=== PATIENT | female | born 1975 | race Caucasian/White ===

== ENCOUNTER 2018-02-22 09:02 | Emergency (ER) | payer BC, SELFPAY ==
[2018-02-22 09:03] VITALS: BP 155/91; PULSE 94; RESP 18; TEMP 37.4; O2SAT 98; BMI 37.0
--- NOTE | 2018-02-22 09:15 | ED.VISSUMM ---
- ER Visit Summary Date of Service: 02/22/18 Chief Complaint: Left calf pain, right anterior tibial pain History of Present Illness: The patient is a 42 F who presents with the above symptoms here she fell on her wooden deck steps 3 weeks ago. She has had a wound on the right anterior tibial area. Is now draining with some yellow fluid. She still has diffuse tenderness from the knee down to the ankle. She had ecchymosis which has improved. She has pain in the left calf area. She noticed a knot in that area this morning. She went to an urgent care and they sent her here for ultrasound. She has been using topical antibiotic cream on the wound on the right leg. Physical Examination: Right leg exam reveals diffuse tenderness in the tibial area. She has a wound on the right anterior tibial area. There is drainage noted. The left calf is tender to palpation. There are no palpable cords. No erythema. She has full range of motion of each extremity. Pulses in her feet are 2+ and equal Test Results: Ultrasound of the left leg and x-ray of the right tib-fib is negative Emergency Department Course and Treatment: Imaging studies are all negative. The patient does have this wound that looks like it slightly infected. Patient will be given Keflex for this. She will follow-up with her primary care physician and use NSAIDs for pain Treatment Plan: [] Disposition: Discharge Impression: Wound infection, left calf pain This note was generated with [employer] dictation software. It may contain incorrect words, spelling, and punctuation that were not noted in review of the chart prior to signing ED Disposition - Plan for ED Patient: Chief Complaint: Lower Extremity Injury Referrals: Laron Hadley MD [Primary Care Provider] -
--- NOTE | 2018-02-22 09:59 | ED.DEP ---
ED Disposition - Plan for ED Patient: Disposition: Home or Assisted Living Chief Complaint: Lower Extremity Injury Instructions: ED Wound Care Prescriptions: Cephalexin [Keflex] 500 mg PO Q6 #28 cap Referrals: Laron Hadley MD [Primary Care Provider] -
[2018-02-22 10:05] VITALS: BP 135/66; PULSE 58; RESP 16; O2SAT 100
== END 2018-02-22 10:06 | disposition home or self-care (01) ==
PROVIDERS: Emergency Provider Emergency Medicine; Family Provider Family Medicine; PCP Family Medicine
DX: M79.662 Pain in left lower leg (principal); S81.801A Unspecified open wound, right lower leg, initial encounter; L08.9 Local infection of the skin and subcutaneous tissue, unspecified; W10.9XXA Fall (on) (from) unspecified stairs and steps, initial encounter; Y93.9 Activity, unspecified; Y92.9 Unspecified place or not applicable; Y99.9 Unspecified external cause status; K21.9 Gastro-esophageal reflux disease without esophagitis; Z72.0 Tobacco use; Z79.899 Other long term (current) drug therapy
CPT/HCPCS: 73590; 93971; 99282

== ENCOUNTER 2018-05-29 19:33 | Inpatient (IN) | payer BC, SELFPAY ==
[2018-05-29 19:35] VITALS: BP 122/74; PULSE 143; RESP 20; TEMP 36.4; O2SAT 95; BMI 36.4
[2018-05-29 19:46] VITALS: O2SAT 95
--- NOTE | 2018-05-29 19:53 | CT_ITS ---
STUDY: CTA CHEST REASON FOR EXAM: Female, 42 years old. Back pain and cough. RADIATION DOSAGE (If Supplied By Facility): CTDIvol = ( 13.18 ) mGy, DLP = ( 596.48 ) mGycm TECHNIQUE: The examination was performed with the intravenous administration of 100 ml of Isovue 300 contrast material. Post-processing of the angiographic images was performed, with multiplanar reformation and 3D reconstruction. Individualized dose optimization techniques were used for this CT. COMPARISON: Portable chest radiograph of May 29, 2018 FINDINGS: Normal enhancement of the main pulmonary artery and right and left pulmonary arteries. Normal enhancement of the bilateral peripheral pulmonary arteries. There is no demonstrated pulmonary embolism. Normal thoracic aorta and visualized great vessels. There is no demonstrated aortic dissection. Normal heart and pericardium. Shotty subcentimeter lymph nodes of the middle mediastinum and aortopulmonary window. Shotty left hilar lymph nodes. Consolidation in the posterior left lower lobe. 11 mm noncalcified nodule of the lingula which is pleural-based and has an air filled center, possibly a calcified nodule. Mild posterior atelectatic change and small nodular type infiltrates in the lateral right lower lobe. 4 mm noncalcified noncavitating nodule of the right lower lobe, image 88 series 2. Negative for pleural effusion. Normal chest wall structures. There are degenerative changes of thoracic spine. Normal visualized upper abdomen. CT/CTA Chest W/WO Contrast IMPRESSION: Negative for pulmonary embolus. Normal thoracic aorta. Negative for coronary calcifications. Shotty lymph nodes of the middle mediastinum, aortopulmonary window and left hilum. Broad area of consolidation in the posterior left lower lobe with minor volume loss. Negative for pleural effusion. 11 mm noncalcified nodule of the lingula with a central lucency suspicious for cavitation. 4 mm noncalcified noncavitating nodule of the right lower lobe. Small areas of atelectasis and/or small confluent infiltrate in the right lower lobe. Generalized atelectatic posterior changes of the right lung. Electronically Signed: Josie Conte MD at 21:44 EST , Service support ,
--- NOTE | 2018-05-29 19:53 | EKG12_ITS ---
Test Reason : CP Blood Pressure : / mmHG Vent. Rate : 127 BPM Atrial Rate : 127 BPM P-R Int : 126 ms QRS Dur : 082 ms QT Int : 300 ms P-R-T Axes : 040 041 008 degrees QTc Int : 436 ms Sinus tachycardia Otherwise normal ECG Confirmed by REBECCA SNOWDEN, ELYSSA ([id number]), expeller operator GOLD WOOTEN ([id number]) on 05/31/2018 9:53:52 AM Referred By: DR GREGORIO Confirmed By:ELYSSA FERNANDEZ MD
--- NOTE | 2018-05-29 19:53 | RAD_ITS ---
STUDY: X-RAY CHEST REASON FOR EXAM: Female, 42 years old. Chest pain TECHNIQUE: Single AP portable view of the chest. COMPARISON: None. FINDINGS: Retrocardiac left lower lobe consolidation. Negative for substantial pleural effusion. Normal size heart. Normal mediastinum and chicho. Normal visualized pulmonary arteries. Normal visualized aortic arch and descending thoracic aorta. Normal visualized thoracic spine. Normal visualized ribs, clavicles, and shoulders. There is no demonstrated abnormality of the visualized soft tissue structures of the upper abdomen. RAD/Chest 1 View (Portable) IMPRESSION: Left lower lobe retrocardiac consolidation, potential pneumonic process. Electronically Signed: Josie Conte MD at 21:13 EST , Service support ,
--- NOTE | 2018-05-29 19:57 | ED.DCSUM_ITS ---
- ER Visit Summary Date of Service: 05/29/18 Chief Complaint: Chest pain and shortness of breath History of Present Illness: The patient is a 42 F who presents for chest pain and shortness of breath with onset last night. Patient has had a cough for the last few days, but last night had sudden onset of left-sided chest pain, shortness of breath, worsening cough, back pain, chills and sweats. Patient is a smoker. She denies any history of DVT or PE. No recent travel or surgery. No history of exogenous hormone use. Patient has no other medical history. Patient has no other symptoms at this time, including no acute leg pain or swelling. She did fall a few weeks ago and has been having leg pain ever since. She was evaluated at that time for a DVT due to the leg pain. Physical Examination: Vital signs: afebrile, normotensive, tachycardic, no hypoxia on room air General: well nourished, well developed, in mild distress Skin: warm, moist, no rash, no pallor HEENT: normocephalic and atraumatic; PERRL, EOMI, moist mucous membranes Cardiovascular: Tachycardic rate and rhythm without murmurs, no peripheral edema, 2+ pulses all distal extremities Respiratory: Tachypnea with mild increased work of breathing, lungs show rhonchi in the left lower field and a expiratory squeak, no wheezing Abdominal: Abdomen is soft, nontender with normoactive bowel sounds, no guarding or rebound, no masses MSK: Moves all extremities, no deformities, normal strength, no calf swelling, tenderness, palpable cords Neuro: Awake and alert, oriented ?4. No facial droop, sensation and motor function intact and symmetric Test Results: Abnormal Lab Results 05/29/18 05/29/18 05/29/18 20:00 20:00 20:00 WBC 12.0 H RBC 4.81 Hgb 13.5 Hct 41.3 MCV 85.9 MCH 28.1 MCHC 32.7 RDW 14.0 RDW Differential 43.1 Plt Count 204 MPV 11.1 Immature Gran % (Auto) 1.000 H Neut % (Auto) 91.3 H Lymph % (Auto) 3.8 L [place] % (Auto) 3.8 Eos % (Auto) 0.0 Baso % (Auto) 0.1 Absolute Neuts (auto) 11.0 H Absolute Lymphs (auto) 0.46 L Total Counted Not Reportable Differential Comment SCANNED PT 14.0 INR 1.1 APTT 35.5 Sodium 133 L Potassium 3.6 Chloride 101 Carbon Dioxide 24.0 Anion Gap 8 BUN 6 L Creatinine 0.90 Estim Creat Clear Calc 64.40 Est GFR (MDRD) Af Amer 88 Est GFR (MDRD) Non-Af 73 BUN/Creatinine Ratio 6.7 L Glucose 123 H Lactic Acid Calcium 8.8 Troponin I < 0.015 05/29/18 20:00 WBC RBC Hgb Hct MCV MCH MCHC RDW RDW Differential Plt Count MPV Immature Gran % (Auto) Neut % (Auto) Lymph % (Auto) [place] % (Auto) Eos % (Auto) Baso % (Auto) Absolute Neuts (auto) Absolute Lymphs (auto) Total Counted Differential Comment PT INR APTT Sodium Potassium Chloride Carbon Dioxide Anion Gap BUN Creatinine Estim Creat Clear Calc Est GFR (MDRD) Af Amer Est GFR (MDRD) Non-Af BUN/Creatinine Ratio Glucose Lactic Acid 1.4 Calcium Troponin I Clinical Impression(s) from Imaging Studies Chest CTA 05/29/18 19:53 IMPRESSION: Negative for pulmonary embolus. Normal thoracic aorta. Negative for coronary calcifications. Shotty lymph nodes of the middle mediastinum, aortopulmonary window and left hilum. Broad area of consolidation in the posterior left lower lobe with minor volume loss. Negative for pleural effusion. 11 mm noncalcified nodule of the lingula with a central lucency suspicious for cavitation. 4 mm noncalcified noncavitating nodule of the right lower lobe. Small areas of atelectasis and/or small confluent infiltrate in the right lower lobe. Generalized atelectatic posterior changes of the right lung. Electronically Signed: Josie Conte MD at 21:44 EST , Service support , Chest X-Ray 05/29/18 19:53 IMPRESSION: Left lower lobe retrocardiac consolidation, potential pneumonic process. Electronically Signed: Josie Conte MD at 21:13 EST , Service support , Medications Given Discontinued Medications Sodium Chloride () 1,000 mls @ 1,000 mls/hr IV .Q1H ONE Stop: 05/29/18 20:52 Last Admin: 05/29/18 20:13 Dose: 1,000 mls/hr Ampicillin Sodium/Sulbactam (Sodium 3 gm/ Sodium Chloride) 112 mls @ 150 mls/hr IV X1 ONE Stop: 05/29/18 22:37 Last Admin: 05/29/18 22:41 Dose: 150 mls/hr Vancomycin HCl 1,250 mg/ (Dextrose) 275 mls @ 250 mls/hr IV X1 ONE Stop: 05/29/18 22:59 Last Admin: 05/29/18 23:53 Dose: 250 mls/hr Ibuprofen (Motrin) 600 mg PO X1 ONE Stop: 05/29/18 22:47 Last Admin: 05/29/18 23:00 Dose: 600 mg Morphine Sulfate () 4 mg IV X1 ONE Stop: 05/29/18 19:54 Last Admin: 05/29/18 20:13 Dose: 4 mg Ondansetron HCl (Zofran) 4 mg IV X1 ONE Stop: 05/29/18 19:54 Last Admin: 05/29/18 20:13 Dose: 4 mg Emergency Department Course and Treatment: Patient presents with pleuritic chest pain, back pain, tachycardia and shortness of breath, is a smoker, and has an EKG that shows an S1Q3T3 pattern. Patient's presentation is concerning for possible pulmonary embolism or pulmonary infection. Patient was given IV fluids for hydration. Chest x-ray was performed that was consistent with a left lower lobe infiltrate. Patient had leukocytosis of 12. Lactate within normal limits at 1.4. CTA was performed and showed no pulmonary embolism but did show a large left lower lobe pneumonia, a lingular cavitary lesion, and concern for a developing right pneumonia. Patient was started on antibiotic coverage for pneumonia, including coverage for pathogen to cause cavitary lesions. Blood cultures obtained. Patient was reevaluated and still was tachycardic, tachypneic and still symptomatic, although somewhat improved in her subjective symptoms. Because of her multilobar pneumonia with cavitary lesion and sepsis, she will benefit from inpatient IV antibiotics and further management. Treatment Plan: [] Disposition: [] Impression: Multilobar pneumonia, cavitary pneumonia, sepsis This note was generated with [employer] dictation software. It may contain incorrect words, spelling, and punctuation that were not noted in review of the chart prior to signing ED Disposition - Plan for ED Patient: Disposition: Acute Care Hospital [facility] Chief Complaint: Cough
[2018-05-29] MEDS: Ondansetron 4 MG/2 ML Vial IV (20:13)
[2018-05-29] MEDS: Morphine 4 MG/ML Syringe IV (20:13)
[2018-05-29] MEDS: 0.9% Normal Saline 1,000 ML 1000 ML IV (20:13)
[2018-05-29 20:22] LABS: Absolute Lymphocyte Count 0.46 X10^3/ul (0.83-4.51); Basophil# 0.01 X10^3/uL; Basophil% 0.1 % (0-1); Differential Indicated SCAN CRITERIA MET; Hematocrit 41.3 % (37-47); Hemoglobin 13.5 g/dl (12.0-15.0); Lymphocyte # 0.46 X10^3/ul (4.0); Lymphocyte % 3.8 % (19-41); Mean Corp Hgb Conc 32.7 g/gl (32-36); Mean Corpuscular Hgb 28.1 pg (27.0-32.0); Mean Corpuscular Volume 85.9 fL (81-99); Mean Platelet Vol. 11.1 fl (6.2-12.0); Monocyte# 0.45 X10^3/uL; Monocyte% 3.8 % (0-10); Neutrophil # 10.96 X10^3/uL (2.7-7.7); Neutrophil % 91.3 % (47-70); POSITIVE COUNT NO; POSITIVE DIFFERENTIAL YES; POSITIVE MORPHOLOGY NO; Platelet Count 204 K/mm3 (150-450); RBC Distribution Width SD 43.1 fl (35.1-43.9); Red Blood Count 4.81 M/mm3 (4.2-5.4)
[2018-05-29 20:38] LABS: International Normalized Ratio 1.1
[2018-05-29 20:39] LABS: Anion Gap 8 (5-15); BUN 6 mg/dL (7-18); BUN/Creat Ratio 6.7 RATIO (10-20); Calcium,Total 8.8 mg/dL (8.5-10.1); Chloride 101 mmol/L (98-107); EST Glomerular Filtration Rate 73 mL/min (>60); Est Glom Filt Rate - Afr Amer 88 mL/min (>60); Glucose 123 mg/dL (74-106); Partial Thromboplast Time 35.5 Seconds (24.1-36.2); Potassium 3.6 mmol/L (3.5-5.1); Sodium Level 133 mmol/L (136-145)
[2018-05-29 20:44] LABS: Differential Comment SCANNED
[2018-05-29 20:47] LABS: Lactic Acid 1.4 mmol/L (0.4-2.0)
[2018-05-29 21:01] VITALS: BP 101/76; PULSE 115; RESP 30; O2SAT 95; O2SAT 99
--- NOTE | 2018-05-29 21:12 | ED.RN ---
PATIENT GOT UP TO THE RESTROOM. SHE BECAME VERY DIZZY AND SHAKY IN HER HANDS. HER MOUTH WAS PALE AND LIPS KIND OF BLUISH. I GOT HER BACK TO BED AND HOOKED HER UP TO THE MONITOR. HER HEART RATE WAS IN THE 150'S WHEN SHE WAS FIRST INTO BED AND HER SPO2 WAS AT 99% ON 2L. BP WAS 134/79. DR. MOREIRA WAS MADE AWARE AND SHE SAID NOT TO GET HER UP ANYMORE. PATIENT IS CURRENTLY FEELING BETTER AND NOT SHAKY ANYMORE.
--- NOTE | 2018-05-29 22:46 | PCM.HP.STD ---
Problem List (1) Cavitary pneumonia Status: Acute (2) Sepsis due to pneumonia Status: Acute History of Present Illness Date of Admission: 05/29/18 Chief Complaint: COUGH The patient is a 42 year old F with a significant history of tobacco abuse who presented because of progressively worsening cough. Her cough is productive for sputum but she is unable to tell the color as she swallows the sputum all the time. Patient reports that she has developed pain that span across her entire chest and goes to her back. She attributes this pain to coughing. She rated her pain as 4 at rest; and a 6-7 with coughing. Associated with her symptoms is shortness of breath at rest. Further she has had chills and night sweats. She had some transient episode of nausea. At emergency department patient was found to have elevated white count; tachypnea and tachycardia. EKG showed sinus tachycardia. Because of concern for pulmonary embolism, emergency department doctor did CTPA. CTPA showed no pulmonary embolism. However it showed lymph adenopathy and area of cavitation. Past Medical History Medical History: Medical History (Last Reviewed 05/30/18 @ 07:44 by Micheal Wang MD) GERD (gastroesophageal reflux disease) K21.9 Allergies Sulfa (Sulfonamide Antibiotics) Adverse Reaction (Verified 05/29/18 19:34) Diarrhea Home Medications: Ambulatory Orders Medication Instructions Recorded Omeprazole [Prilosec] 20 mg PO DAILY 04/07/15 Ibuprofen [Motrin] 600 mg PO Q6H PRN 05/29/18 Surgical History: - - 2 . Lives: Spouse/ Significant Other Smoking Status: Current every day smoker Tobacco Use: Cigarettes Alcohol: Heavy - *Family History Maternal History Items: Diabetes Paternal History Items: Hypertension Review of Systems Constitutional: Reports: Anorexia, Chills, Night Sweats. Denies: Fever, Weight Change HEENT: Denies: Head Aches, Sinus Congestion, Sinus Drainage Cardiovascular: Reports: Chest Pain. Denies: Palpitations Respiratory: Reports: Cough, Shortness of breath at rest, Sputum production Gastrointestinal: Reports: Nausea. Denies: Abdominal Pain, Vomiting Genitourinary: Denies: Dysuria Musculoskeletal: Denies: Joint Pain, Joint Tenderness Skin: Denies: Rash, Wounds Neurological: Denies: Numbness, Tingling, Focal weakness Psychiatric: Denies: Anxiety, Depression, Homicidal Ideations, Suicidal Ideations Hematologic/ Lymphatic: Denies: Easy Bruising, Easy Bleeding VTE Information - Inpt Only VTE Present on Admission: No VTE Mechan Device Prophylaxis: None VTE Pharm Prophylaxis ordered?: Yes Patient Problems: Active and Suspected Problems (Last Updated 05/29/18 @ 23:35 by Micheal Wang MD) Cavitary pneumonia (Acute) Sepsis due to pneumonia (Acute) - Physical Exam General: Alert, Oriented x3, Cooperative HEENT: Atraumatic, PERRLA, EOMI, Normocephalic Neck: Supple, No JVD, Negative Carotid Bruits Lungs: Clear to auscultation, Normal air movement, Tachypneic Cardiovascular: No murmurs, Tachycardic Abdomen: Bowel Sounds Present, Soft, Non Tender Extremities: No edema, Capillary Refill Less than 3 Seconds Skin: No rashes, No breakdown Musculoskeletal: No Tenderness to Palpation of Joints or Extremities Neurological: Neuro grossly intact Psych/Mental Status: Normal Affect, Appropriate Vital Signs Temp Pulse Resp BP Pulse Ox 97.5 F L 115 H 30 H 101/76 99 05/29/18 19:35 05/29/18 21:01 05/29/18 21:01 05/29/18 21:01 05/29/18 21:01 Oxygen Flow Rate (L/min) 2 Oxygen Delivery Method Nasal Cannula Weight: 90.4 kg Body Mass Index (BMI) 36.4 Laboratory Tests Past 24 Hrs 05/29/18 05/29/18 05/29/18 20:00 20:00 20:00 WBC 12.0 H RBC 4.81 Hgb 13.5 Hct 41.3 MCV 85.9 MCH 28.1 MCHC 32.7 RDW 14.0 RDW Differential 43.1 Plt Count 204 MPV 11.1 Immature Gran % (Auto) 1.000 H Neut % (Auto) 91.3 H Lymph % (Auto) 3.8 L [place] % (Auto) 3.8 Eos % (Auto) 0.0 Baso % (Auto) 0.1 Absolute Neuts (auto) 11.0 H Absolute Lymphs (auto) 0.46 L Total Counted Not Reportable Differential Comment SCANNED PT 14.0 INR 1.1 APTT 35.5 Sodium 133 L Potassium 3.6 Chloride 101 Carbon Dioxide 24.0 Anion Gap 8 BUN 6 L Creatinine 0.90 Estim Creat Clear Calc 64.40 Est GFR (MDRD) Af Amer 88 Est GFR (MDRD) Non-Af 73 BUN/Creatinine Ratio 6.7 L Glucose 123 H Lactic Acid Calcium 8.8 Troponin I < 0.015 05/29/18 20:00 WBC RBC Hgb Hct MCV MCH MCHC RDW RDW Differential Plt Count MPV Immature Gran % (Auto) Neut % (Auto) Lymph % (Auto) [place] % (Auto) Eos % (Auto) Baso % (Auto) Absolute Neuts (auto) Absolute Lymphs (auto) Total Counted Differential Comment PT INR APTT Sodium Potassium Chloride Carbon Dioxide Anion Gap BUN Creatinine Estim Creat Clear Calc Est GFR (MDRD) Af Amer Est GFR (MDRD) Non-Af BUN/Creatinine Ratio Glucose Lactic Acid 1.4 Calcium Troponin I Assessment/Plan All Active Problems (Last Updated 05/29/18 @ 23:35 by Micheal Wang MD) Cavitary pneumonia (Acute) Sepsis due to pneumonia (Acute) The patient is a 42 year old F with a significant history of tobacco abuse who presented because of progressively worsening cough and shortness of breath; and found to have radiographic evidence of cavitary lesions and lymph adenopathy and meets criteria for SIRS with likely source of infection as pneumonia. Severe Sepsis due to cavitary pneumonia. Patient meets SIRS criteria with tachycardia of 143 and elevated white count Severe sepsis since patient was found to have hemodynamic compromise with SBP < 90 bust responded to fluids. Patient received vancomycin and Unasyn at emergency department. We will continue vancomycin and Unasyn. Lactic acid: 1.4 Highest RR 30 Oxygen saturation: unremarkable Blood culture ?2 is pending Respiratory Gram stain and culture ordered IV hydration with Normal saline. DuoNeb scheduled. Albuterol as needed Legionella antigen screen and Strep antigen ordered Prednisone x 1 due to severity of her condition. Please evaluate for further needs of steroids. Tylenol for fever and pain. Morphine and oxycodone for pain. Bowel protocol with oxycodone. Alcohol dependence Patient reported that she drinks 2 shots of vodka a day. Will place patient on CIWA protocol with Ativan, thiamine, folic acid and multivitamins. Counseled Tobacco abuse Patient reported she is cutting down on tobacco use. She thinks she will not smoke again. Counseled Patient declined nicotine patch. GERD Omeprazole continued. DVT Prophylaxis Lovenox Code Visit Inpatient E&M: [id number] Init Hosp L3
[2018-05-29] MEDS: Ibuprofen 600 MG Tablet PO (23:00)
[2018-05-29 23:02] VITALS: BP 109/78; PULSE 125; RESP 12; TEMP 36.7; O2SAT 98
[2018-05-29 23:23] VITALS: BMI 36.7
[2018-05-29 23:30] VITALS: BP 114/61; PULSE 114; RESP 22; TEMP 37.5; O2SAT 99
[2018-05-30] VITALS (19 sets, daily range): BP systolic 88–114; BP diastolic 53–75; PULSE 62–108; RESP 18–24; TEMP 36.9–39.2; O2SAT 94–99
[2018-05-30] MEDS: 0.9% Normal Saline 1,000 ML 100 ML IV (00:04)
--- NOTE | 2018-05-30 00:15 | PCM.RX.CS ---
<Ari Cunha W - Last Filed: 05/30/18 00:15> Consult Pharmacy has been consulted to manage selected antiobiotic: Vancomycin Type of Consult: New start Suspected Infection: Pneumonia Prior Doses of Antibiotics Received/Current Regimen: Medications Vancomycin HCl (Vancomycin) 1,000 mg in 200 mls @ 200 mls/hr IV Q12H ONEIL Discontinued Medications Vancomycin HCl 1,250 mg/ (Dextrose) 275 mls @ 250 mls/hr IV X1 ONE Stop: 05/29/18 22:59 Last Admin: 05/29/18 23:53 Dose: 250 mls/hr Labs: Sodium 133 mmol/L (136-145) L 05/29/18 20:00 Potassium 3.6 mmol/L (3.5-5.1) 05/29/18 20:00 Chloride 101 mmol/L (98-107) 05/29/18 20:00 Carbon Dioxide 24.0 mmol/L (21.0-32.0) 05/29/18 20:00 Anion Gap 8 (5-15) 05/29/18 20:00 BUN 6 mg/dL (7-18) L 05/29/18 20:00 Creatinine 0.90 mg/dL (0.55-1.02) 05/29/18 20:00 Est GFR (MDRD) Af Amer 88 mL/min (>60) 05/29/18 20:00 Est GFR (MDRD) Non-Af 73 mL/min (>60) 05/29/18 20:00 BUN/Creatinine Ratio 6.7 RATIO (10-20) L 05/29/18 20:00 Glucose 123 mg/dL (74-106) H 05/29/18 20:00 Weight used for dosin.5 kg Estimated Creatinine Clearance: 64 Goal Trough: 15-20 mcg/mL Pharmacy Plan for Drug Dosing: Pharmacy Service will continue to monitor and adjust dosing as required. Follow-Up Labs: Trough Vancomycin Labs to be done on [date and time ordered]: 05-31-18 @1130 <Nettie Miller - Last Filed: 05/30/18 07:30> Consult Labs: Sodium 143 mmol/L (136-145) 05/30/18 05:33 Potassium 3.7 mmol/L (3.5-5.1) 05/30/18 05:33 Chloride 114 mmol/L (98-107) H 05/30/18 05:33 Carbon Dioxide 21.0 mmol/L (21.0-32.0) 05/30/18 05:33 Anion Gap 8 (5-15) 05/30/18 05:33 BUN 5 mg/dL (7-18) L 05/30/18 05:33 Creatinine 0.65 mg/dL (0.55-1.02) 05/30/18 05:33 Est GFR (MDRD) Af Amer 127 mL/min (>60) 05/30/18 05:33 Est GFR (MDRD) Non-Af 105 mL/min (>60) 05/30/18 05:33 BUN/Creatinine Ratio 7.6 RATIO (10-20) L 05/30/18 05:33 Glucose 122 mg/dL (74-106) H 05/30/18 05:33 Microbiology: Microbiology 05/30/18 00:15 Urine, Clean Catch Streptococcus pneumoniae Antigen (M - Final 05/30/18 00:15 Urine, Clean Catch Legionella Antigen - Final Pharmacy Plan for Drug Dosing: Upon daily assessment, pt has had significant improvement in renal function, qualifies for 1500mg iv q12hrs at present time. Will change old vancomycin dosing to new dose, trough will stay the same, as the patient has not gotten any doses of scheduled vancomycin yet. PLAN/RECOMMENDATIONS 1. Change vancomycin to 1500mg IV Q12hrs to start 05/30/18 @1200 2. Trough scheduled 05/31/18 @1130 3. Pharmacy Service will continue to monitor and adjust dosing as required.
[2018-05-30] MEDS: predniSONE 20 MG Tablet 40 MG PO (00:33)
[2018-05-30] MEDS: 0.9% Normal Saline 1,000 ML 999 ML IV ×3 (02:07→05:06)
--- NOTE | 2018-05-30 05:58 | PCM.PN.BLA ---
Progress Note Severe sepsis follow-up note Nurse reported that patient systolic blood pressure was lower than 90 At emergency department patient was given 1000 L of normal saline and was started on maintenance fluids. Patient rebolus with 30 mL's per kilogram normal saline and maintenance fluid continued. On repeat examination patient reports that she has shortness of breath only when she coughs up. S1-S2 present. No M/G/R Lungs clear to auscultate Extremities pulses 2 out of 4; capillary refill less than 3 seconds. Blood cultures are pending Lactate was unremarkable Continue broad-spectrum antibiotics of vancomycin and Unasyn. Nurse later reported patient blood pressure is lower in the right arm and is increased by 20 points in the left arm. Repeat systolic blood pressure charted is more than 100.
[2018-05-30 06:16] LABS: Absolute Lymphocyte Count 0.37 X10^3/ul (0.83-4.51); Absolute Neutrophil Count 10.1 X10^3/uL (2.0-7.7); Hematocrit 34.4 % (37-47); Hemoglobin 11.2 g/dl (12.0-15.0); Lymphocyte # 0.37 X10^3/ul (4.0); Lymphocyte % 3.4 % (19-41); Mean Corp Hgb Conc 32.6 g/gl (32-36); Mean Corpuscular Hgb 28.6 pg (27.0-32.0); Mean Corpuscular Volume 87.8 fL (81-99); Mean Platelet Vol. 11.3 fl (6.2-12.0); Monocyte# 0.37 X10^3/uL; Monocyte% 3.4 % (0-10); Neutrophil # 10.11 X10^3/uL (2.7-7.7); Neutrophil % 92.8 % (47-70); Platelet Count 159 K/mm3 (150-450); RBC Distribution Width SD 43.9 fl (35.1-43.9); Red Blood Count 3.92 M/mm3 (4.2-5.4); White Blood Count 10.9 K/mm3 (4.4-11.0)
[2018-05-30 06:19] LABS: Differential Indicated SCAN CRITERIA MET; POSITIVE COUNT NO; POSITIVE DIFFERENTIAL YES; POSITIVE MORPHOLOGY NO
[2018-05-30 06:45] LABS: Anion Gap 8 (5-15); BUN 5 mg/dL (7-18); BUN/Creat Ratio 7.6 RATIO (10-20); Calcium,Total 7.2 mg/dL (8.5-10.1); Chloride 114 mmol/L (98-107); Creatinine, Serum 0.65 mg/dL (0.55-1.02); EST Glomerular Filtration Rate 105 mL/min (>60); Est Glom Filt Rate - Afr Amer 127 mL/min (>60); Estimated Creatinine Clearance 85.08 ml/min; Glucose 122 mg/dL (74-106); Potassium 3.7 mmol/L (3.5-5.1); Sodium Level 143 mmol/L (136-145)
[2018-05-30] MEDS: Ipratropium/Albuterol Sulfate 3 ML AMPUL.NEB INHALATION (07:14)
[2018-05-30] MEDS: Acetaminophen 325 MG Tablet 650 MG PO ×2 (08:03→19:12)
--- NOTE | 2018-05-30 08:06 | PCM.PROGNOTE ---
Patient Problems: Active and Suspected Problems (Last Reviewed 05/30/18 @ 07:44 by Micheal Wang MD) Cavitary pneumonia (Acute) Sepsis due to pneumonia (Acute) Subjective: Chief complaint: Follow-up after admission for community-acquired pneumonia and sepsis. Patient seen and examined. No acute events overnight. She still complaining of dry cough with no sputum production, no improvement. Denied abdominal pain, nausea or vomiting. This morning, her vital signs are stable. - Physical Exam General: Alert, Oriented x3, Cooperative, No apparent distress HEENT: Atraumatic, PERRLA, EOMI, Normocephalic Oral: Moist Mucosa, No Gingival or Mucosal Lesions/ Ulcerations Neck: Supple, No JVD, Negative Carotid Bruits, Trachea Midline, Thyroid Normal Size and Texture Lungs: Clear to auscultation, No rhonchi, No wheeze, No rales, Diminished Cardiovascular: Regular rate, Regular Rhythm, Normal S1, Normal S2, PMI Normal Abdomen: Bowel Sounds Present, Soft, Non Tender, Non-Distended, No Hepato-splenomegaly Extremities: No clubbing, No cyanosis, No edema Skin: No rashes, No breakdown Lymphatic: No Cervical, Supraclavicular, or Inguinal Adenopathy Neurological: Cranial nerves II-XII grossly intact, Motor Exam 5/5 strength throughout Psych/Mental Status: Normal Affect, Appropriate, Alert and oriented to time, place, person, mood and affect Vital Signs Temp Pulse Resp BP Pulse Ox 98.6 F 94 18 109/71 99 05/30/18 07:50 05/30/18 07:50 05/30/18 07:50 05/30/18 07:51 05/30/18 07:50 Oxygen Flow Rate (L/min) 2 Oxygen Delivery Method Room Air Weight: 199 lb 8.293 oz Body Mass Index (BMI) 36.7 Intake and Output for Last 24 Hours 05/28/18 05/29/18 05/30/18 23:59 23:59 23:59 Intake Total 4259 / 4259 Output Total 1900 / 1900 Balance 2359 / 2359 Microbiology Past 72 Hours 05/30/18 00:15 Streptococcus pneumoniae Antigen (M - Final Urine, Clean Catch 05/30/18 00:15 Legionella Antigen - Final Urine, Clean Catch Laboratory Tests Past 24 Hrs 05/29/18 05/29/18 05/29/18 20:00 20:00 20:00 WBC 12.0 H RBC 4.81 Hgb 13.5 Hct 41.3 MCV 85.9 MCH 28.1 MCHC 32.7 RDW 14.0 RDW Differential 43.1 Plt Count 204 MPV 11.1 Immature Gran % (Auto) 1.000 H Neut % (Auto) 91.3 H Lymph % (Auto) 3.8 L [place] % (Auto) 3.8 Eos % (Auto) 0.0 Baso % (Auto) 0.1 Absolute Neuts (auto) 11.0 H Absolute Lymphs (auto) 0.46 L Total Counted Not Reportable Differential Comment SCANNED PT 14.0 INR 1.1 APTT 35.5 Sodium 133 L Potassium 3.6 Chloride 101 Carbon Dioxide 24.0 Anion Gap 8 BUN 6 L Creatinine 0.90 Estim Creat Clear Calc 64.40 Est GFR (MDRD) Af Amer 88 Est GFR (MDRD) Non-Af 73 BUN/Creatinine Ratio 6.7 L Glucose 123 H Lactic Acid Calcium 8.8 Troponin I < 0.015 05/29/18 05/30/18 05/30/18 20:00 05:33 05:33 WBC 10.9 RBC 3.92 L Hgb 11.2 L Hct 34.4 L MCV 87.8 MCH 28.6 MCHC 32.6 RDW 14.0 RDW Differential 43.9 Plt Count 159 MPV 11.3 Immature Gran % (Auto) 0.400 Neut % (Auto) 92.8 H Lymph % (Auto) 3.4 L [place] % (Auto) 3.4 Eos % (Auto) 0.0 Baso % (Auto) 0.0 Absolute Neuts (auto) 10.1 H Absolute Lymphs (auto) 0.37 L Total Counted Not Reportable Differential Comment PT INR APTT Sodium 143 Potassium 3.7 Chloride 114 H Carbon Dioxide 21.0 Anion Gap 8 BUN 5 L Creatinine 0.65 Estim Creat Clear Calc 85.08 Est GFR (MDRD) Af Amer 127 Est GFR (MDRD) Non-Af 105 BUN/Creatinine Ratio 7.6 L Glucose 122 H Lactic Acid 1.4 Calcium 7.2 L Troponin I Clinical Impression(s) from Imaging Studies Chest CTA 05/29/18 19:53 IMPRESSION: Negative for pulmonary embolus. Normal thoracic aorta. Negative for coronary calcifications. Shotty lymph nodes of the middle mediastinum, aortopulmonary window and left hilum. Broad area of consolidation in the posterior left lower lobe with minor volume loss. Negative for pleural effusion. 11 mm noncalcified nodule of the lingula with a central lucency suspicious for cavitation. 4 mm noncalcified noncavitating nodule of the right lower lobe. Small areas of atelectasis and/or small confluent infiltrate in the right lower lobe. Generalized atelectatic posterior changes of the right lung. Electronically Signed: Josie Conte MD at 21:44 EST , Service support , Chest X-Ray 05/29/18 19:53 IMPRESSION: Left lower lobe retrocardiac consolidation, potential pneumonic process. Electronically Signed: Josie Conte MD at 21:13 EST , Service support , Medical Necessity - Tobacco Use Smoking Status: Current every day smoker Tobacco Use: Cigarettes Assessment/Plan All Active Problems (Last Reviewed 05/30/18 @ 07:44 by Micheal Wang MD) Cavitary pneumonia (Acute) Sepsis due to pneumonia (Acute) This is a 42 years old female patient presented to the emergency room because of shortness of breath, cough and chest discomfort, found to have left lower lobe consolidation and cavitary lesions in the lingula and right lower lobe as well as infiltrate on the right lower lobe consistent with community-acquired pneumonia with sepsis. #1 acute probably bacterial multilobar bilateral community-acquired cavitary pneumonia/sepsis: She is on IV Unasyn and vancomycin. She has been afebrile, blood pressure and heart rate are stable, pulse ox is maintained on room air. Leukocytosis resolved. Her lactic acid was normal. EKG revealed sinus tachycardia, otherwise normal. Troponin is negative. Pneumococcal and Legionella antigen were negative. Blood and sputum cultures are pending. Respiratory panel for viruses is pending. Plan to continue same treatment. #2 alcohol abuse: She is on CIWA protocol, folic acid and thiamine supplement, Ativan as needed. At this time, blood pressure and heart rate are stable. #3 tobacco abuse: Patient is starting to cut down on smoking. #4 GERD: Continue Protonix. #5 DVT prophylaxis: Subcu Lovenox. This note was generated with [employer] dictation software. It may contain incorrect words, spelling, and punctuation that were not noted in checking the note before signing. Code Visit Inpatient E&M: 52790 Subs Hosp L2
--- NOTE | 2018-05-30 08:09 | PN_ITS ---
Patient Problems: Active and Suspected Problems (Last Reviewed 05/30/18 @ 07:44 by Micheal Wang MD) Cavitary pneumonia (Acute) Sepsis due to pneumonia (Acute) Subjective: Chief complaint: Follow-up after admission for community-acquired pneumonia and sepsis. Patient seen and examined. No acute events overnight. She still complaining of dry cough with no sputum production, no improvement. Denied abdominal pain, nausea or vomiting. This morning, her vital signs are stable. - Physical Exam General: Alert, Oriented x3, Cooperative, No apparent distress HEENT: Atraumatic, PERRLA, EOMI, Normocephalic Oral: Moist Mucosa, No Gingival or Mucosal Lesions/ Ulcerations Neck: Supple, No JVD, Negative Carotid Bruits, Trachea Midline, Thyroid Normal Size and Texture Lungs: Clear to auscultation, No rhonchi, No wheeze, No rales, Diminished Cardiovascular: Regular rate, Regular Rhythm, Normal S1, Normal S2, PMI Normal Abdomen: Bowel Sounds Present, Soft, Non Tender, Non-Distended, No Hepato- splenomegaly Extremities: No clubbing, No cyanosis, No edema Skin: No rashes, No breakdown Lymphatic: No Cervical, Supraclavicular, or Inguinal Adenopathy Neurological: Cranial nerves II-XII grossly intact, Motor Exam 5/5 strength throughout Psych/Mental Status: Normal Affect, Appropriate, Alert and oriented to time, place, person, mood and affect Vital Signs Temp Pulse Resp BP Pulse Ox 98.6 F 94 18 109/71 99 05/30/18 07:50 05/30/18 07:50 05/30/18 07:50 05/30/18 07:51 05/30/18 07:50 Oxygen Flow Rate (L/min) 2 Oxygen Delivery Method Room Air Weight: 199 lb 8.293 oz Body Mass Index (BMI) 36.7 Intake and Output for Last 24 Hours 05/28/18 05/29/18 05/30/18 23:59 23:59 23:59 Intake Total 4259 / 4259 Output Total 1900 / 1900 Balance 2359 / 2359 Microbiology Past 72 Hours 05/30/18 00:15 Streptococcus pneumoniae Antigen (M - Final Urine, Clean Catch 05/30/18 00:15 Legionella Antigen - Final Urine, Clean Catch Laboratory Tests Past 24 Hrs 05/29/18 05/29/18 05/29/18 20:00 20:00 20:00 WBC 12.0 H RBC 4.81 Hgb 13.5 Hct 41.3 MCV 85.9 MCH 28.1 MCHC 32.7 RDW 14.0 RDW Differential 43.1 Plt Count 204 MPV 11.1 Immature Gran % (Auto) 1.000 H Neut % (Auto) 91.3 H Lymph % (Auto) 3.8 L [place] % (Auto) 3.8 Eos % (Auto) 0.0 Baso % (Auto) 0.1 Absolute Neuts (auto) 11.0 H Absolute Lymphs (auto) 0.46 L Total Counted Not Reportable Differential Comment SCANNED PT 14.0 INR 1.1 APTT 35.5 Sodium 133 L Potassium 3.6 Chloride 101 Carbon Dioxide 24.0 Anion Gap 8 BUN 6 L Creatinine 0.90 Estim Creat Clear Calc 64.40 Est GFR (MDRD) Af Amer 88 Est GFR (MDRD) Non-Af 73 BUN/Creatinine Ratio 6.7 L Glucose 123 H Lactic Acid Calcium 8.8 Troponin I < 0.015 05/29/18 05/30/18 05/30/18 20:00 05:33 05:33 WBC 10.9 RBC 3.92 L Hgb 11.2 L Hct 34.4 L MCV 87.8 MCH 28.6 MCHC 32.6 RDW 14.0 RDW Differential 43.9 Plt Count 159 MPV 11.3 Immature Gran % (Auto) 0.400 Neut % (Auto) 92.8 H Lymph % (Auto) 3.4 L [place] % (Auto) 3.4 Eos % (Auto) 0.0 Baso % (Auto) 0.0 Absolute Neuts (auto) 10.1 H Absolute Lymphs (auto) 0.37 L Total Counted Not Reportable Differential Comment PT INR APTT Sodium 143 Potassium 3.7 Chloride 114 H Carbon Dioxide 21.0 Anion Gap 8 BUN 5 L Creatinine 0.65 Estim Creat Clear Calc 85.08 Est GFR (MDRD) Af Amer 127 Est GFR (MDRD) Non-Af 105 BUN/Creatinine Ratio 7.6 L Glucose 122 H Lactic Acid 1.4 Calcium 7.2 L Troponin I Clinical Impression(s) from Imaging Studies Chest CTA 05/29/18 19:53 IMPRESSION: Negative for pulmonary embolus. Normal thoracic aorta. Negative for coronary calcifications. Shotty lymph nodes of the middle mediastinum, aortopulmonary window and left hilum. Broad area of consolidation in the posterior left lower lobe with minor volume loss. Negative for pleural effusion. 11 mm noncalcified nodule of the lingula with a central lucency suspicious for cavitation. 4 mm noncalcified noncavitating nodule of the right lower lobe. Small areas of atelectasis and/or small confluent infiltrate in the right lower lobe. Generalized atelectatic posterior changes of the right lung. Electronically Signed: Josie Conte MD at 21:44 EST , Service support , Chest X-Ray 05/29/18 19:53 IMPRESSION: Left lower lobe retrocardiac consolidation, potential pneumonic process. Electronically Signed: Josie Conte MD at 21:13 EST , Service support , Medical Necessity - Tobacco Use Smoking Status: Current every day smoker Tobacco Use: Cigarettes Assessment/Plan All Active Problems (Last Reviewed 05/30/18 @ 07:44 by Micheal Wang MD) Cavitary pneumonia (Acute) Sepsis due to pneumonia (Acute) This is a 42 years old female patient presented to the emergency room because of shortness of breath, cough and chest discomfort, found to have left lower lobe consolidation and cavitary lesions in the lingula and right lower lobe as well as infiltrate on the right lower lobe consistent with community-acquired pneumonia with sepsis. #1 acute probably bacterial multilobar bilateral community-acquired cavitary pneumonia/sepsis: She is on IV Unasyn and vancomycin. She has been afebrile, blood pressure and heart rate are stable, pulse ox is maintained on room air. Leukocytosis resolved. Her lactic acid was normal. EKG revealed sinus tachycardia, otherwise normal. Troponin is negative. Pneumococcal and Legionella antigen were negative. Blood and sputum cultures are pending. Respiratory panel for viruses is pending. Plan to continue same treatment. #2 alcohol abuse: She is on CIWA protocol, folic acid and thiamine supplement, Ativan as needed. At this time, blood pressure and heart rate are stable. #3 tobacco abuse: Patient is starting to cut down on smoking. #4 GERD: Continue Protonix. #5 DVT prophylaxis: Subcu Lovenox. This note was generated with [employer] dictation software. It may contain incorrect words, spelling, and punctuation that were not noted in checking the note before signing. Code Visit Inpatient E&M: 51923 Subs Hosp L2
[2018-05-30] MEDS: Folic Acid 1 MG Tablet PO (09:25)
[2018-05-30] MEDS: Multivitamins,Ther W-Minerals Tablet 1 TABLET PO (09:25)
[2018-05-30] MEDS: Pantoprazole Sodium 20 MG Tablet PO (09:26)
[2018-05-30] MEDS: Enoxaparin 40 MG/0.4 ML Syringe SC (09:26)
[2018-05-30] MEDS: Senna Tablet 1 TABLET PO ×2 (09:26→20:29)
[2018-05-30] MEDS: Thiamine Hydrochloride 100 MG Tablet PO ×2 (09:26→16:59)
[2018-05-30] MEDS: guaiFENesin 1,200 MG Tablet 1200 MG PO ×2 (09:26→20:29)
--- NOTE | 2018-05-30 13:08 | CASEMGMT ---
SW met w/pt in room, pt's in room. SW spoke w/pt about prior level of function, discharge plan, alcohol use. PCP: James Hadley Preferred Pharmacy: [facility] Insurance/Prescription Coverage: [employer] Living Will/POA: No, declined information as per admitting RN LNOK/Living arrangement: Lives w/, children ages 8 and 3 DME/HHC: No history of DME or HHC. It is not anticipated pt will have any homegoing needs. SW did ask pt about her alcohol use. Pt states she knows it's a problem and is planning to stop. SW asked if she would like any information for counseling, pt states no, plans to do this on her own. SW did give pt some names of programs both here in [place] and in [place](as pt lives in [place]) in the event pt does feel she needs some support in stopping. Pt states understanding. No further needs, pt home w/ and children at discharge. LIANET Sprague, [employer]
[2018-05-30] MEDS: oxyCODONE 5 MG Tablet PO (14:12)
--- NOTE | 2018-05-30 14:22 | NURSING ---
Patient face and neck becoming flushed and pt states she feels warm- but denies itching or any other symptom during 2nd infusion of Vancomycin. This RN called Reuben, pharmacist and he recommends to slow infusion to half of current rate. ROMEO Covarrubias completing same.
--- NOTE | 2018-05-30 14:38 | NURSING ---
NOTED PTS FACE/NECK TO BE FLUSHED, PT STATES FACE FEELS HOT. ?VANCOMYCIN. NOTIFIED PHARMACY WHOM REC SLOWING RATE OF VANC.
--- NOTE | 2018-05-30 15:04 | NURSING ---
PT NOTES DECREASE IN WARMTH OF FACE/NECK AFTER RATE OF VANCOMYCIN TURNED DOWN
[2018-05-30] MEDS: 0.9% NaCl Peripheral Flush Adult/Peds IV ×3 (19:12→23:30)
[2018-05-30] MEDS: proMETHazine 25 MG/ML Syringe 12.5 MG IV (19:12)
[2018-05-31] VITALS (8 sets, daily range): BP systolic 116–144; BP diastolic 69–91; PULSE 87–100; RESP 18; TEMP 36.7–38.1; O2SAT 95–99
[2018-05-31] MEDS: oxyCODONE 5 MG Tablet PO ×2 (01:25→21:45)
--- NOTE | 2018-05-31 08:08 | PN_ITS ---
Patient Problems: Active and Suspected Problems (Last Reviewed 05/30/18 @ 07:44 by Micheal Wang MD) Cavitary pneumonia (Acute) Sepsis due to pneumonia (Acute) Subjective: Chief complaint: Follow-up after admission for community-acquired pneumonia and sepsis. Patient seen and examined. No acute events overnight. She is having less cough, no sputum production. Denied nausea vomiting. Denies chest pain, palpitation, dizziness or lightheadedness. Her vital signs are stable. - Physical Exam General: Alert, Oriented x3, Cooperative, No apparent distress HEENT: Atraumatic, PERRLA, EOMI, Normocephalic Oral: Moist Mucosa, No Gingival or Mucosal Lesions/ Ulcerations Neck: Supple, No JVD, Negative Carotid Bruits, Trachea Midline, Thyroid Normal Size and Texture Cardiovascular: Regular rate, Regular Rhythm, Normal S1, Normal S2, No murmurs, PMI Normal Abdomen: Bowel Sounds Present, Soft, Non Tender, Non-Distended, No Hepato- splenomegaly Extremities: No clubbing, No cyanosis, No edema Skin: No rashes, No breakdown Lymphatic: No Cervical, Supraclavicular, or Inguinal Adenopathy Neurological: Cranial nerves II-XII grossly intact, Neuro grossly intact Psych/Mental Status: Normal Affect, Appropriate, Alert and oriented to time, p lace, person, mood and affect Vital Signs Temp Pulse Resp BP Pulse Ox 99 F 95 18 123/69 H 95 05/31/18 02:00 05/31/18 02:00 05/31/18 02:00 05/31/18 02:00 05/31/18 06:50 Oxygen Flow Rate (L/min) 2 Oxygen Delivery Method Room Air Weight: 199 lb 8.293 oz Body Mass Index (BMI) 36.7 Intake and Output for Last 24 Hours 05/29/18 05/30/18 05/31/18 23:59 23:59 23:59 Intake Total 6809 / 6809 1765 / 1765 Output Total 1900 / 1900 Balance 4909 / 4909 1765 / 1765 Microbiology Past 72 Hours 05/30/18 01:45 Respiratory Panel (PCR) - Final Mucosa - Nasopharyngeal 05/30/18 09:10 Gram Stain - Final Sputum, Expectorated/Coughed 05/30/18 00:15 Streptococcus pneumoniae Antigen (M - Final Urine, Clean Catch 05/30/18 00:15 Legionella Antigen - Final Urine, Clean Catch Medical Necessity - Tobacco Use Smoking Status: Current every day smoker Tobacco Use: Cigarettes Assessment/Plan All Active Problems (Last Reviewed 05/30/18 @ 07:44 by Micheal Wang MD) Cavitary pneumonia (Acute) Sepsis due to pneumonia (Acute) This is a 42 years old female patient presented to the emergency room because of shortness of breath, cough and chest discomfort, found to have left lower lobe consolidation and cavitary lesions in the lingula and right lower lobe as well as infiltrate on the right lower lobe consistent with community-acquired pneumonia with sepsis. #1 acute probably bacterial multilobar bilateral community-acquired cavitary pneumonia/sepsis: Remained on IV Unasyn and vancomycin. She had a spike of low- grade fever this morning, other vital signs are stable. Leukocytosis resolved. Her lactic acid was normal. Pneumococcal and Legionella antigen were negative. Respiratory panel for viruses was negative. Blood and sputum cultures are pending. Plan to continue same treatment. #2 alcohol abuse: She is on CIWA protocol, folic acid and thiamine supplement, Ativan as needed. At this time, blood pressure and heart rate are stable. #3 tobacco abuse: Patient is starting to cut down on smoking. #4 GERD: Continue Protonix. #5 DVT prophylaxis: Subcu Lovenox. This note was generated with [employer] dictation software. It may contain incorrect words, spelling, and punctuation that were not noted in checking the note before signing. Code Visit Inpatient E&M: 44553 Subs Hosp L2
[2018-05-31] MEDS: Acetaminophen 325 MG Tablet 650 MG PO ×3 (08:38→21:45)
[2018-05-31] MEDS: Multivitamins,Ther W-Minerals Tablet 1 TABLET PO (08:39)
[2018-05-31] MEDS: Pantoprazole Sodium 20 MG Tablet PO (08:39)
[2018-05-31] MEDS: Folic Acid 1 MG Tablet PO (08:39)
[2018-05-31] MEDS: Senna Tablet 1 TABLET PO ×2 (08:39→21:54)
[2018-05-31] MEDS: Enoxaparin 40 MG/0.4 ML Syringe SC (08:40)
[2018-05-31] MEDS: guaiFENesin 1,200 MG Tablet 1200 MG PO ×2 (08:40→21:54)
[2018-05-31] MEDS: Thiamine Hydrochloride 100 MG Tablet PO ×2 (08:40→16:20)
[2018-05-31] MEDS: 0.9% NaCl Peripheral Flush Adult/Peds IV ×2 (10:47→18:50)
[2018-05-31 12:49] LABS: Vancomycin, Trough Level 8.2 ug/mL (5.0-15.0)
[2018-05-31] MEDS: Magnesium Hydroxide 30 ML UDC PO (14:50)
--- NOTE | 2018-05-31 15:29 | PCM.RX.CS ---
Consult Pharmacy has been consulted to manage selected antiobiotic: Vancomycin Type of Consult: Follow-up Suspected Infection: Pneumonia Labs: Sodium 143 mmol/L (136-145) 05/30/18 05:33 Potassium 3.7 mmol/L (3.5-5.1) 05/30/18 05:33 Chloride 114 mmol/L (98-107) H 05/30/18 05:33 Carbon Dioxide 21.0 mmol/L (21.0-32.0) 05/30/18 05:33 Anion Gap 8 (5-15) 05/30/18 05:33 BUN 5 mg/dL (7-18) L 05/30/18 05:33 Creatinine 0.65 mg/dL (0.55-1.02) 05/30/18 05:33 Est GFR (MDRD) Af Amer 127 mL/min (>60) 05/30/18 05:33 Est GFR (MDRD) Non-Af 105 mL/min (>60) 05/30/18 05:33 BUN/Creatinine Ratio 7.6 RATIO (10-20) L 05/30/18 05:33 Glucose 122 mg/dL (74-106) H 05/30/18 05:33 Vancomycin Trough 8.2 ug/mL (5.0-15.0) 05/31/18 11:20 Microbiology: Microbiology 05/30/18 09:10 Sputum, Expectorated/Coughed Gram Stain - Final 05/30/18 09:10 Sputum, Expectorated/Coughed Respiratory Culture - Preliminary Appears to be normal respiratory jan. Further studies to follow. 05/30/18 01:45 Mucosa - Nasopharyngeal Respiratory Panel (PCR) - Final 05/30/18 00:15 Urine, Clean Catch Streptococcus pneumoniae Antigen (M - Final 05/30/18 00:15 Urine, Clean Catch Legionella Antigen - Final Weight used for dosin kg Estimated Creatinine Clearance: 85ml/min Goal Trough: 15-20 mcg/mL Pharmacy Plan for Drug Dosing: Pt's trough came back at 8.2. Per calculators current dose is giving an estimated trough of 16-17. Will continue current dose of 1500mg q12h and draw another trough level on 06/01/18 at 1130. Pharmacy Service will continue to monitor and adjust dosing as required. Follow-Up Labs: Trough Vancomycin Labs to be done on [date and time ordered]: trough level 06/01/18 at 1130
[2018-06-01 02:00] VITALS: BP 112/74; PULSE 88; RESP 18; TEMP 37.2; O2SAT 96
[2018-06-01 07:45] VITALS: BP 123/87; PULSE 87; RESP 18; TEMP 36.4; O2SAT 98
[2018-06-01] MEDS: Enoxaparin 40 MG/0.4 ML Syringe SC (07:49)
[2018-06-01] MEDS: Folic Acid 1 MG Tablet PO (07:49)
[2018-06-01] MEDS: Multivitamins,Ther W-Minerals Tablet 1 TABLET PO (07:49)
[2018-06-01] MEDS: Pantoprazole Sodium 20 MG Tablet PO (07:50)
[2018-06-01] MEDS: guaiFENesin 1,200 MG Tablet 1200 MG PO (07:50)
[2018-06-01] MEDS: Thiamine Hydrochloride 100 MG Tablet PO (07:50)
[2018-06-01] MEDS: Senna Tablet 1 TABLET PO (07:50)
--- NOTE | 2018-06-01 08:06 | DCINST_ITS ---
- Discharge Diagnoses Current Active Problems: Current Active and Chronic Problems (Last Reviewed 05/30/18 @ 07:44 by Micheal Wang MD) Cavitary pneumonia (Acute) Sepsis due to pneumonia (Acute) You will use the following diet at home:: Regular Your food should be the consistency of: Regular Discharge Activity: Return to Normal Activity Return to work on:: 06/05/18 Weight Bearing Status: Full weight bearing Call your doctor if you observe: Fever of 101 or Higher, Shortness of breath, Dizziness, Fainting spells, Chest pain, Increased palpitations (irregular heartbeat), Uncontrolled pain Instructions: Discharge Instructions for Pneumonia Allergies/Adverse Reactions: Allergies Sulfa (Sulfonamide Antibiotics) Adverse Reaction (Verified 05/29/18 19:34) Diarrhea Medications to take at Discharge Omeprazole [Prilosec] 20 mg PO DAILY 04/07/15 Ibuprofen [Motrin] 600 mg PO Q6H PRN 05/29/18 Amox/Clavulanate Tablet [Augmentin Tablet] 875 mg PO Q12H #14 tablet 06/01/18 Doxycycline 100 mg PO BID #14 capsule 06/01/18 The following prescriptions were given: Amox/Clavulanate Tablet [Augmentin Tablet] 875 mg PO Q12H #14 tablet Doxycycline 100 mg PO BID #14 capsule Primary Care Physician: Laron Hadley MD [Primary Care Provider] - Please follow up with your Primary Care Physician in: 1 week. Test Results: Test results from this visit will be discussed in further detail at your follow- up appointment, if applicable.
[2018-06-01] MEDS: oxyCODONE 5 MG Tablet PO (09:59)
--- NOTE | 2018-06-01 12:11 | DS.PCM_ITS ---
Discharge Date and Diagnosis Date of Admission: 05/29/18 Date of Discharge: 06/01/18 - Primary Discharge Diagnosis #1 acute multilobar bilateral community-acquired cavitary pneumonia. #2 sepsis. #3 alcohol abuse. Hospital Course and Treatment Imaging Results: Clinical Impression(s) from Imaging Studies Chest CTA 05/29/18 19:53 IMPRESSION: Negative for pulmonary embolus. Normal thoracic aorta. Negative for coronary calcifications. Shotty lymph nodes of the middle mediastinum, aortopulmonary window and left hilum. Broad area of consolidation in the posterior left lower lobe with minor volume loss. Negative for pleural effusion. 11 mm noncalcified nodule of the lingula with a central lucency suspicious for cavitation. 4 mm noncalcified noncavitating nodule of the right lower lobe. Small areas of atelectasis and/or small confluent infiltrate in the right lower lobe. Generalized atelectatic posterior changes of the right lung. Electronically Signed: Josie Conte MD at 21:44 EST , Service support , Chest X-Ray 05/29/18 19:53 IMPRESSION: Left lower lobe retrocardiac consolidation, potential pneumonic process. Electronically Signed: Josie Conte MD at 21:13 EST , Service support , Operations: None Procedures: None Summary of Care Provided: Patient seen and examined on the day of discharge and appeared to be stable to be discharged home. Her cough is getting better, mild dry cough. She has been afebrile overnight. Her vital signs are stable. The patient is a 42 year old F admitted because of shortness of breath, cough and chest discomfort, found to have left lower lobe consolidation and cavitary lesions in the lingula and right lower lobe as well as infiltrate on the right lower lobe on CTA chest done on admission which is consistent with multilobar community-acquired pneumonia. She did have evidence of sepsis upon admission. She did have mild leukocytosis and she has been having low-grade fever during this admission. She was treated with IV Unasyn and vancomycin because of the cavitary pneumonia which could be due to staphylococcal infection. Her lactic acid was normal. Apart from leukocytosis, CBC and BMP was unremarkable. EKG was unremarkable as well and troponin was negative. With above-mentioned treatment with IV antibiotics, patient symptoms improved, had less cough and she remained afebrile for 24 hours. Her pneumococcal and Legionella antigen were negative. Respiratory panel for viruses were negative. Blood culture showed no growth in 48 hours. Sputum culture revealed mixed normal respiratory jan. Her oxygenation remained stable throughout admission. P she did have a history of alcohol abuse and she was treated with folic acid and thiamine supplement as well as Ativan as needed during this hospital stay. Patient was discharged home in a stable medical condition, discharged on Augmentin and doxycycline for 7 days of treatment to complete total of 10 days, recommended to follow-up with PCP in 1 week and probably she would need to repeat CT scan chest in 4-6 weeks to assure resolution of the cavitary pneumonia. - Physical Exam General: Alert, Oriented x3, Cooperative, No apparent distress HEENT: Atraumatic, PERRLA, EOMI, Normocephalic Oral: Moist Mucosa, No Gingival or Mucosal Lesions/ Ulcerations Neck: Supple, No JVD, Negative Carotid Bruits, Trachea Midline, Thyroid Normal Size and Texture Lungs: No rhonchi, No wheeze, Diminished, Rales, - - Right lung base fine crackles, otherwise clear. Cardiovascular: Regular rate, Regular Rhythm, Normal S1, Normal S2, PMI Normal Abdomen: Bowel Sounds Present, Soft, Non Tender, Non-Distended, No Hepato- splenomegaly Extremities: No clubbing, No cyanosis, No edema Skin: No rashes, No breakdown Lymphatic: No Cervical, Supraclavicular, or Inguinal Adenopathy Neurological: Cranial nerves II-XII grossly intact, Neuro grossly intact Psych/Mental Status: Normal Affect, Appropriate Vital Signs Temp Pulse Resp BP Pulse Ox 97.5 F L 87 18 123/87 H 98 06/01/18 07:45 06/01/18 07:45 06/01/18 07:45 06/01/18 07:45 06/01/18 07:45 Oxygen Flow Rate (L/min) 2 Oxygen Delivery Method Room Air Weight: 199 lb 8.293 oz Body Mass Index (BMI) 36.7 Intake and Output for Last 24 Hours 05/30/18 05/31/18 06/01/18 23:59 23:59 23:59 Intake Total 6809 / 6809 4753 / 4753 2149 / 2149 Output Total 1900 / 1900 Balance 4909 / 4909 4753 / 4753 214 / 214 Microbiology Past 72 Hours 05/29/18 22:08 Blood Culture - Preliminary Blood Culture (Wb) - Left Hand No growth in 48 hours. 05/29/18 22:08 Blood Culture - Preliminary Blood Culture (Wb) - Anticubital Left No growth in 48 hours. 05/30/18 09:10 Gram Stain - Final Sputum, Expectorated/Coughed Respiratory Culture - Final 05/30/18 01:45 Respiratory Panel (PCR) - Final Mucosa - Nasopharyngeal 05/30/18 00:15 Streptococcus pneumoniae Antigen (M - Final Urine, Clean Catch 05/30/18 00:15 Legionella Antigen - Final Urine, Clean Catch Laboratory Tests Past 24 Hrs 05/31/18 11:20 Vancomycin Trough 8.2 Discharge Activity: Return to Normal Activity Return to work on:: 06/05/18 Weight Bearing Status: Full weight bearing Call your doctor if you observe: Fever of 101 or Higher, Shortness of breath, Dizziness, Fainting spells, Chest pain, Increased palpitations (irregular heartbeat), Uncontrolled pain Home Medications: Medications to take at Discharge Omeprazole [Prilosec] 20 mg PO DAILY 04/07/15 Ibuprofen [Motrin] 600 mg PO Q6H PRN 05/29/18 Amox/Clavulanate Tablet [Augmentin Tablet] 875 mg PO Q12H #14 tablet 06/01/18 Doxycycline 100 mg PO BID #14 capsule 06/01/18 Following Prescrptions Were Given to Patient: Amox/Clavulanate Tablet [Augmentin Tablet] 875 mg PO Q12H #14 tablet Doxycycline 100 mg PO BID #14 capsule Primary Care Physician: Laron Hadley MD [Primary Care Provider] - Please follow up with your Primary Care Physician in: 1 week. Patient Instructions: Discharge Instructions for Pneumonia Disposition: Home Minutes spent on discharge:: 32 Patient Condition:: Stable Medical Necessity - Tobacco Use Smoking Status: Current every day smoker Tobacco Use: Cigarettes Meaningful Use Info Meaningful Use Diagnoses (Choose all that apply): None applicable Code Visit Inpatient E&M: 17744 Disch Hosp
--- OUTSIDE RECORDS SUMMARY | 2018-07-15 22:40 | XMS RPT_ITS ---
:1975 Author Organization OH[facility] Care Team Providers Name Role Phone CAITLYN PAINTING (KAYDENM) Attending Unavailable CAITLYN PAINTING (KAYDENM) Referring Unavailable SAHARA LYNCH (CONDITIONING COACH) Attending Unavailable PODLOGAR, KATHERINE (ANEUDY) Attending Unavailable BURSLEY, EFFIE OLEARY) Referring Unavailable PODLOGAR, KATHERINE (ANEUDY) Referring Unavailable PODLOGAR, KATHERINE (ANEUDY) Referring Unavailable Bursley, Laron Primary Care Unavailable Agyepong, Micheal Admitting Unavailable Ashelfah, Ghasem Attending Unavailable Agyepong, Micheal Admitting Unavailable Bursley, Laron Primary Care Unavailable Agyepong, Micheal Consulting Unavailable Ashelfah, Ghasem Attending Unavailable Agyepong, Micheal Admitting Unavailable Agyepong, Micheal Attending Unavailable Bursley, Laron Primary Care Unavailable Ashelfah, Ghasem Consulting Unavailable Agyepong, Micheal Admitting Unavailable Ashelfah, Ghasem Attending Unavailable Bursley, Laron Primary Care Unavailable Ashelfah, Ghasem Consulting Unavailable Agyepong, Micheal Admitting Unavailable Ashelfah, Ghasem Attending Unavailable Bursley, Laron Primary Care Unavailable Ashelfah, Ghasem Consulting Unavailable Lowe, Mick Attending Unavailable Bursley, Laron Primary Care Unavailable ASSESSMENT, HEALTH RISK Attending Unavailable Bursley, Laron Primary Care Unavailable PROBLEMS PROBLEMS DATE TYPE CONDITION / CODE ATTENDING STATUS SOURCE 06/07/2018 Active Alcohol abuse, Active [facility] uncomplicated / [place] F10.10(ICD-10) Repository 06/07/2018 Active Lobar pneumonia, NA Active [facility] unspecified [place] organism / Repository J18.1(ICD-10) 07/31/2017 Active Encounter for Active [facility] gynecological [place] examination Repository (general) (routine) with abnormal findings / Z01.411(ICD-10) PROCEDURES PROCEDURES No Procedure Records FoundRESULTS RESULTS PROGRESS Observed: 07/04/2018 Status: COMPLETED Source: [place] 12:36 PM [facility] REPOSITORY HNO ID: [id number] Author: Erica Rogers LPN Service: (none) Author Type: (none) Type: Progress Notes Filed: 07/04/2018 12:37 PM Note Text: Patient presents for Pneumovax immunization. Denies any problems at this time. Tolerated injection well. Erica Rogers LPN CNNURSE Observed: 07/04/2018 Status: COMPLETED Source: [place] 12:30 PM [facility] REPOSITORY Nurse Visit (FAMPWS) KACIE CACERES ([id number]) 1975 F Date Time Provider Department 07/04/18 12:30 PM [place] NURSE ASHLYPCHUY During your visit today, we recorded the following information about you: Erica Rogers LPN 07/04/2018 12:37 PM Signed Patient presents for Pneumovax immunization. Denies any problems at this time. Tolerated injection well. Erica Rogers LPN Referring Provider: KATHERINE ENRIQUE ([facility]) [[id number]] Allergies As of Date: 07/04/2018 Noted Allergy Reaction SULFA (SULFONAMIDE ANTIBIOTICS) 11/17/2005 8 - GI Upset Date Reviewed: 06/06/2018 Reviewed by: Nusrat Avelar ([employer]) LUIS A Knott - Fully Assessed Reason for Visit: Imm/Inj [58] Primary Visit Diagnosis:Need for vaccination [Z23] Order(s):PNEUMOCOCCAL IMMUNIZATION PPSV 23 [[id number]] Order #: [id number] Prescriptions as of 07/04/2018 Sig: OMEPRAZOLE 20 MG CAPSULE,RAMILA* TAKE 1 CAPSULE DAILY 30 MINUT* Problem List As Of Date 07/04/2018 Noted Resolved AMA (advanced maternal age) multigravida 35+ [O*INVALID FOR* Abnormal mammogram [R92.8] INVALID FOR* Acid reflux [K21.9] Obesity (BMI 30.0-34.9) [E66.9] GERD without esophagitis [K21.9] INVALID FOR* More... Encounter Status:Closed by ERICA ROGERS LPN on 07/04/18 CBC Collected: 06/07/2018 Status: F Source: [place] 12:15 PM [facility] REPOSITORY TYPE CODE TESTS RESULT OUT OF REFERENCE UNITS RANGE LAB WBC 3.70-11.00 k/uL WBC 7.91 LAB RBC 3.90-5.20 m/uL RBC 4.26 LAB HGB 11.5-15.5 g/dL Hemoglobin 12.1 LAB HCT 36.0-46.0 % Hematocrit 38.3 LAB MCV 80.0-100.0 fL MCV 89.9 LAB MCH 26.0-34.0 pG MCH 28.4 LAB MCHC 30.5-36.0 g/dL MCHC 31.6 LAB RDWCV 11.5-15.0 % RDW-CV 14.1 LAB PLTCT 150-400 k/uL Platelet High Count 421 LAB MPV 9.0-12.7 fL MPV 10.6 LAB ABSNUC <0.01 k/uL Absolute nRBC <0.01 Performed By: #### CBC, ALCO, CMP, SERFOL #### [facility] [address] [place], [place] [address] #### B1VIT #### [facility] [address] [place] [address] [phone] ETHANOL Collected: 06/07/2018 Status: F Source: [place] 12:15 PM [facility] REPOSITORY TYPE CODE TESTS RESULT OUT OF REFERENCE UNITS RANGE LAB ALCO <11 mg/dL Ethanol <11 Performed By: #### CBC, ALCO, CMP, SERFOL #### [facility] [address] [place], [place] [address] #### B1VIT #### [facility] [address] [place] [address] [phone] COMP METABOLIC PANEL Collected: 06/07/2018 Status: F Source: [place] 12:15 PM [facility] REPOSITORY TYPE CODE TESTS RESULT OUT OF REFERENCE UNITS RANGE LAB TP 6.3-8.0 g/dL Protein, Total 7.1 LAB ALB 3.9-4.9 g/dL Albumin 3.9 LAB CA 8.5-10.2 mg/dL Calcium, Total 9.1 LAB TBIL 0.2-1.3 mg/dL Low Bilirubin, Total <0.2 LAB ALKP 34-123 U/L Alkaline Phosphatase 51 LAB AST 13-35 U/L AST 25 LAB GLU 74-99 mg/dL Glucose 96 Result Comment: The [place] Diabetes Association (ADA) provides guidance for cutoff values for fasting glucose and random glucose. The ADA defines fasting as no caloric intake for at least 8 hours. Fas ting plasma glucose results between 100 to 125 mg/dL indicate increased risk for diabetes (prediabetes). Fasting plasma glucose results greater than or equal to 126 mg/dL meet the criteria for diagnosis of diabetes. In the absence of unequivocal hyperglycemia, results should be confirmed by repeat testing. In a patient with classic symptoms of hyperglycemia or hyperglycemic crisis, random plasma glucose results greater than or equal to 200 mg/dL meet the criteria for diagnosis of diabetes. Reference: Standards of Medical Care in Diabetes 2016, [place] Diabetes Association. Diabetes Care. 2016.39(Suppl 1). LAB BUN 7-21 mg/dL BUN 7 LAB CRET 0.58-0.96 mg/dL Creatinine 0.60 LAB NA 136-144 mmol/L Sodium 139 LAB K 3.7-5.1 mmol/L Potassium 4.1 LAB CL 97-105 mmol/L Chloride 103 LAB CO2 22-30 mmol/L CO2 24 LAB AGAP 9-18 mmol/L Anion Gap 12 LAB ALT 7-38 U/L ALT High 44 LAB GFRAA eGFR- Amer. >60 LAB GFRNAA . eGFR-All Other Races >60 Result Comment: eGFR (Estimated GFR) Units of measure: mL/min/1.73 meters squared eGFR is derived from the reexpressed MDRD Study equation using the following parameters: serum creatinine, age, gender and race. The creatinine assay has been calibrated to be traceable to IDMS. An eGFR <60 mL/min/1.73m2 for >3 months is consistent with chronic kidney disease. Refer to KDOQI guidelines for clinical interpretation. In patients with unstable renal function, e.g. those with acute kidney injury, the eGFR may not accurately reflect actual GFR. Performed By: #### CBC, ALCO, CMP, SERFOL #### [facility] [employer] [facility] [address] [place], [place] [address] #### B1VIT #### [facility] [address] [place] [address] [phone] FOLATE, SERUM Collected: 06/07/2018 Status: F Source: [place] 12:15 PM [facility] REPOSITORY TYPE CODE TESTS RESULT OUT OF REFERENCE UNITS RANGE LAB SERFOL >4.7 ng/mL Folate, 10.2 Serum Performed By: #### CBC, ALCO, CMP, SERFOL #### [facility] [address] [place], [place] [address] #### B1VIT #### [employer] [address] [address] [phone] VITAMIN B1,WHOLE BLD Collected: 06/07/2018 Status: F Source: [place] 12:15 PM [facility] REPOSITORY TYPE CODE TESTS RESULT OUT OF REFERENCE UNITS RANGE LAB VITB1 70-180 nmol/L Vitamin B1 119 Whole Bld Result Comment: (NOTE) INTERPRETIVE INFORMATION: Vitamin B1, Whole Blood This assay measures the concentration of thiamine diphosphate (TDP), the primary active form of vitamin B1. Approximately 90 percent of vitamin B1 present in whole blood is TDP. Thiamine and thiamine monophosphate, which comprise the remaining 10 percent, are not measured. Test developed and characteristics determined by [employer]. See Compliance Statement B: [employer] Performed by [employer], [address] [place] [id number] [email or web address], Chas Rivera MD, Lab. Director Performed By: #### CBC, ALCO, CMP, SERFOL #### [facility] [address] [place], [place] [address] #### B1VIT #### [facility] [employer] [address] [address] [phone] PROGRESS Observed: 06/06/2018 Status: COMPLETED Source: [place] 7:45 AM [facility] REPOSITORY HNO ID: [id number] Author: Katherine Wade) Podlogar Service: (none) Author Type: Nurse Practitioner Type: Progress Notes Filed: 06/06/2018 10:02 AM Note Text: CC: Hospital Follow-up Provider Documentation: Kacie Caceres is a 42 year old female here today for a follow up to recent hospitalization. I have reviewed the patient's hospital course including diagnostic testing performed during this hospitalization, their discharge medications, and my assessment and plan with the patient and any family members present at today's visit. See TCM note below. TRANSITION CARE MANAGEMENT (TCM) INITIAL CONTACT Associate Professor Of Biology Outreach ? Provider Action/FYI: Pt was recommended to have repeat ct scan in 4 -6 weeks. Otherwise no c/o at this time. ? Initial contact with patient post discharge, spoke to patient. Patient identified by name and . ? TRANSITION CARE MANAGEMENT INITIAL OUTREACH DOCUMENTATION: Date of Outreach: 06/03/2018 06/03/2018 Outreach Attempt 1: Contact Made - Date of Discharge 06/01/2018 06/01/2018 Some recent data might be hidden ? ? SUMMARY: -Pt discharged from [facility] on 06/01/18. -Admitted for: acute multilobar bilateral community -acquired cavitary pneumonia Do you have a hospital follow up appointment with your PCP? Appointment on 06/06/18 with Katherine Spauldinglogfozia HEARD. Yes. Remind patient of appointment date, time, and location. If not within 14 calendar days of discharge - please reschedule accordingly. ? MEDICATIONS: Many patients have questions or concerns about their medications once they are home. Were you prescribed any new medications? Yes, Augmentin, doxycycline ? Were you told to hold any medications? No Were any of your medications discontinued? No ? Do you have any questions about getting or taking your medications? No ? Your discharge instructions/After visit Summary (AVS) are important in guiding you through the recovery process. Is there anything I might help you understand? No ? Do you have all the necessary equipment and supplies at home? Yes ? Medical records from recent hospitalization: Placed for provider to review HOSPITAL/ER FOLLOW UP: Reason for visit: hospital follow-up Which facility: [facility] Date of visit: 05/29/2018-06/01/2018 Diagnosis: Acute multilobar bilateral CAP cavitary pneumonia, Sepsis, alcohol abuse Testing done: CXR, CTA Chest, EKG Treatment given: IV antiboitcs Current symptoms: dry cough HPI: Since discharge on 06/01/2018 taking antibiotics as prescribed. Notes some diarrhea and some vaginal burning and itching- reports she believes she has a yeast infection. Has four days of doxycycline and Augmentin left. Has completely stopped smoking since discharge. Was placed on CIWA protocol in hospital due to daily drinking. Reports she has stopped drinking as well. Was consuming 3-5 drinks a night sometimes beer or rum and coke. Reports would smoke only in evening while drinking and since she stopped smoking she decided to stop drinking as well. Denies fever, chills, headaches, wheezing SOB, dyspnea, hemoptysis, chest pain, abdominal pain, hematochezia, melena, nausea, vomiting, dysuria, urgency, frequency, vaginal discharge, tremors. Positive for dry cough. Taking some mucinex as well. REVIEW OF SYSTEMS See Above PHYSICAL EXAMINATION BP 128/72 Pulse 60 Resp 18 Wt 200 lb 1.9 oz (90.8kg) General appearance: well appearing, alert, in no acute distress and well-hydrated, well nourished, motor and sensory appear to be normal Lungs: lungs clear to auscultation. No wheezing, rhonchi, rales Heart: RRR without murmur, gallop, or rubs. No ectopy Abdomen: Abdomen soft, non-tender. Bowel sounds normal. No masses, organomegaly Extremities: No deformities, edema, skin discoloration, clubbing or cyanosis. Good capillary refill. , Extremities normal. No deformities, edema, or skin discoloration. Good capillary refill. ASSESSMENT/PLAN: 1. Hospital discharge follow-up - ICD9: V67.59, ICD10: Z09 (primary diagnosis) - improved - is to finish entire course of antibiotics - follow-up in 4-[address] as recommend in hospital 2. Pneumonia of right lower lobe due to infectious organism (HCC) - ICD9: 486, ICD10: J18.1 - Improved - plan as in #1 - CT CHEST WO IVCON - CBC - COMP METABOLIC PANEL 3. Alcohol abuse - ICD9: 305.00, ICD10: F10.10 - will obtain labs below- patient agreeable to ethanol level - offered support to [facility], patient declines - VITAMIN B1/THIAMINE, WHOLE BLD - FOLATE SERUM - CBC - COMP METABOLIC PANEL - ALCOHOL/ETHANOL BLD - follow-up pending blood work 4. GERD without esophagitis - ICD9: 530.81, ICD10: K21.9 - Continue treatment with Prilosec 20 mg QD - Follow up in 6 months - OMEPRAZOLE 20 MG CAPSULE,DELAYED RELEASE 5. Vaginal yeast infection - ICD9: 112.1, ICD10: B37.3 - FLUCONAZOLE 150 MG TABLET Katherine Enrique, EQUITY DIRECTOR.CONDITIONING COACH Prescription instructions reviewed with patient as applicable. Patient advised if symptoms do not improve or if symptoms worsen sooner, to contact their primary care physician. Potential red flag symptoms discussed with the patient. Reviewed appropriate action plan to take if red flag symptoms occur. Patient agreeable to treatment plan. CNOV Observed: 06/06/2018 Status: COMPLETED Source: [place] 7:40 AM [facility] REPOSITORY Office Visit (FAMPWS) KACIE CACERES ([id number]) 1975 F Date Time Provider Department 06/06/18 7:40 AM [facility] your visit today, we recorded the following information about you: Pulse Respiration Blood pressure Weight 60/minute 18/minute 128/72 90.8 kg Katherine Enrique APRN.CNP 06/06/2018 10:02 AM Signed CC: Hospital Follow-up Provider Documentation: Kacie Caceres is a 42 year old female here today for a follow up to recent hospitalization. I have reviewed the patient's hospital course including diagnostic testing performed during this hospitalization, their discharge medications, and my assessment and plan with the patient and any family members present at today's visit. See TCM note below. TRANSITION CARE MANAGEMENT (TCM) INITIAL CONTACT Associate Professor Of Biology Outreach ? Provider Action/FYI: Pt was recommended to have repeat ct scan in 4 -6 weeks. Otherwise no c/o at this time. ? Initial contact with patient post discharge, spoke to patient. Patient identified by name and . ? TRANSITION CARE MANAGEMENT INITIAL OUTREACH DOCUMENTATION: Date of Outreach: 06/03/2018 06/03/2018 Outreach Attempt 1: Contact Made - Date of Discharge 06/01/2018 06/01/2018 Some recent data might be hidden ? ? SUMMARY: -Pt discharged from [facility] on 06/01/18. -Admitted for: acute multilobar bilateral community -acquired cavitary pneumonia Do you have a hospital follow up appointment with your PCP? Appointment on 06/06/18 with Katherine Enrique CNP. Yes. Remind patient of appointment date, time, and location. If not within 14 calendar days of discharge - please reschedule accordingly. ? MEDICATIONS: Many patients have questions or concerns about their medications once they are home. Were you prescribed any new medications? Yes, Augmentin, doxycycline ? Were you told to hold any medications? No Were any of your medications discontinued? No ? Do you have any questions about getting or taking your medications? No ? Your discharge instructions/After visit Summary (AVS) are important in guiding you through the recovery process. Is there anything I might help you understand? No ? Do you have all the necessary equipment and supplies at home? Yes ? Medical records from recent hospitalization: Placed for provider to review HOSPITAL/ER FOLLOW UP: Reason for visit: hospital follow-up Which facility: [facility] Date of visit: 05/29/2018-06/01/2018 Diagnosis: Acute multilobar bilateral CAP cavitary pneumonia, Sepsis, alcohol abuse Testing done: CXR, CTA Chest, EKG Treatment given: IV antiboitcs Current symptoms: dry cough HPI: Since discharge on 06/01/2018 taking antibiotics as prescribed. Notes some diarrhea and some vaginal burning and itching- reports she believes she has a yeast infection. Has four days of doxycycline and Augmentin left. Has completely stopped smoking since discharge. Was placed on CIWA protocol in hospital due to daily drinking. Reports she has stopped drinking as well. Was consuming 3-5 drinks a night sometimes beer or rum and coke. Reports would smoke only in evening while drinking and since she stopped smoking she decided to stop drinking as well. Denies fever, chills, headaches, wheezing SOB, dyspnea, hemoptysis, chest pain, abdominal pain, hematochezia, melena, nausea, vomiting, dysuria, urgency, frequency, vaginal discharge, tremors. Positive for dry cough. Taking some mucinex as well. REVIEW OF SYSTEMS See Above PHYSICAL EXAMINATION BP 128/72 Pulse 60 Resp 18 Wt 200 lb 1.9 oz (90.8kg) General appearance: well appearing, alert, in no acute distress and well-hydrated, well nourished, motor and sensory appear to be normal Lungs: lungs clear to auscultation. No wheezing, rhonchi, rales Heart: RRR without murmur, gallop, or rubs. No ectopy Abdomen: Abdomen soft, non-tender. Bowel sounds normal. No masses, organomegaly Extremities: No deformities, edema, skin discoloration, clubbing or cyanosis. Good capillary refill. , Extremities normal. No deformities, edema, or skin discoloration. Good capillary refill. ASSESSMENT/PLAN: 1. Hospital discharge follow-up - ICD9: V67.59, ICD10: Z09 (primary diagnosis) - improved - is to finish entire course of antibiotics - follow-up in 4-[address] as recommend in hospital 2. Pneumonia of right lower lobe due to infectious organism (HCC) - ICD9: 486, ICD10: J18.1 - Improved - plan as in #1 - CT CHEST WO IVCON - CBC - COMP METABOLIC PANEL 3. Alcohol abuse - ICD9: 305.00, ICD10: F10.10 - will obtain labs below- patient agreeable to ethanol level - offered support to [facility], patient declines - VITAMIN B1/THIAMINE, WHOLE BLD - FOLATE SERUM - CBC - COMP METABOLIC PANEL - ALCOHOL/ETHANOL BLD - follow-up pending blood work 4. GERD without esophagitis - ICD9: 530.81, ICD10: K21.9 - Continue treatment with Prilosec 20 mg QD - Follow up in 6 months - OMEPRAZOLE 20 MG CAPSULE,DELAYED RELEASE 5. Vaginal yeast infection - ICD9: 112.1, ICD10: B37.3 - FLUCONAZOLE 150 MG TABLET Katherine Enrique, EQUITY DIRECTOR.CONDITIONING COACH Prescription instructions reviewed with patient as applicable. Patient advised if symptoms do not improve or if symptoms worsen sooner, to contact their primary care physician. Potential red flag symptoms discussed with the patient. Reviewed appropriate action plan to take if red flag symptoms occur. Patient agreeable to treatment plan. Referring Provider: EFFIE HADLEY) [[id number]] Allergies As of Date: 06/06/2018 Noted Allergy Reaction SULFA (SULFONAMIDE ANTIBIOTICS) 11/17/2005 8 - GI Upset Date Reviewed: 06/06/2018 Reviewed by: Nusrat Araujo) LUIS A Knott - Fully Assessed Reason for Visit: Hospital F/U [57] Cmt: tcm Primary Visit Diagnosis:Hospital discharge follow-up [Z09] Other Visit Diagnoses:Pneumonia of right lower lobe due to infectious organism (HCC) [J18.1] Alcohol abuse [F10.10] GERD without esophagitis [K21.9] Vaginal yeast infection [B37.3] Order(s):CT CHEST WO IVCON [[id number]] Order #: [id number] FUTURE VITAMIN B1/THIAMINE, WHOLE BLD [ADQ2YZI] Order #: [id number] FUTURE FOLATE SERUM [SQSERFOL] Order #: [id number] FUTURE CBC [SQCBC] Order #: [id number] FUTURE COMP METABOLIC PANEL [SQCMP] Order #: [id number] FUTURE omeprazole (PRILOSEC) 20 mg capsuleTAKE 1 CAPSULE DAILY 30 MINUTES BEFORE BREAKFASTDisp: 90 capsuleRfl: 3 fluconazole (DIFLUCAN) 150 mg tabletTake 1 tablet by mouth one time only for 1 dose. Repeat in 3 days as needed.Disp: 2 tabletRfl: 0 ALCOHOL/ETHANOL BLD [SQALCO] Order #: [id number] FUTURE Prescriptions as of 06/06/2018 Sig: OMEPRAZOLE 20 MG CAPSULE,RAMILA* TAKE 1 CAPSULE DAILY 30 MINUT* FLUCONAZOLE 150 MG TABLET Take 1 tablet by mouth one ti* Problem List As Of Date 06/06/2018 Noted Resolved AMA (advanced maternal age) multigravida 35+ [O*INVALID FOR* Abnormal mammogram [R92.8] INVALID FOR* Acid reflux [K21.9] Obesity (BMI 30.0-34.9) [E66.9] GERD without esophagitis [K21.9] INVALID FOR* More... Prescriptions ordered this encounter Disp Refills Start End OMEPRAZOLE 20 MG CAPSULE,DELAYED REL* 90 c* 3 06/06/2018 Sig: TAKE 1 CAPSULE DAILY 30 MINUTES BEFORE BREAKFAST FLUCONAZOLE 150 MG TABLET 2 ta* 0 06/06/2018 06/06/2018 Route: ORAL Sig: Take 1 tablet by mouth one time only for 1 dose. Repeat in 3 days as needed. Medications Discontinued During This Encounter omeprazole (PRILOSEC) 20 mg capsule 90 c* 3 10/23/2017 06/06/2018 Sig: TAKE 1 CAPSULE DAILY 30 MINUTES BEFORE BREAKFAST Disc: Reason for discontinue is not on file. LOS history recorded Follow-up and Disposition History Recorded Encounter Status:Closed by KATHERINE ENRIQUE CNP on 06/06/18 PROGRESS Observed: 06/03/2018 Status: COMPLETED Source: [place] 11:05 AM [facility] [place] REPOSITORY HNO ID: [id number] Author: Nusrat Araujo) LUIS A Knott Service: (none) Author Type: LICENSED NURSE Type: Progress Notes Filed: 07/04/2018 3:00 AM Note Text: TRANSITION CARE MANAGEMENT (TCM) INITIAL CONTACT Associate Professor Of Biology Outreach Provider Action/FYI: Pt was recommended to have repeat ct scan in 4 -6 weeks. Otherwise no c/o at this time. Initial contact with patient post discharge, spoke to patient. Patient identified by name and . TRANSITION CARE MANAGEMENT INITIAL OUTREACH DOCUMENTATION: Date of Outreach: 06/03/2018 06/03/2018 Outreach Attempt 1: Contact Made - Date of Discharge 06/01/2018 06/01/2018 Some recent data might be hidden SUMMARY: -Pt discharged from [facility] on 06/01/18. -Admitted for: acute multilobar bilateral community -acquired cavitary pneumonia Do you have a hospital follow up appointment with your PCP? Appointment on 06/06/18 with Katherine Enrique CNP. Yes. Remind patient of appointment date, time, and location. If not within 14 calendar days of discharge - please reschedule accordingly. MEDICATIONS: Many patients have questions or concerns about their medications once they are home. Were you prescribed any new medications? Yes, Augmentin, doxycycline Were you told to hold any medications? No Were any of your medications discontinued? No Do you have any questions about getting or taking your medications? No Your discharge instructions/After visit Summary (AVS) are important in guiding you through the recovery process. Is there anything I might help you understand? No Do you have all the necessary equipment and supplies at home? Yes Medical records from recent hospitalization: Placed for provider to review CNPTOUTREACH Observed: 06/03/2018 Status: COMPLETED Source: [place] 12:00 AM [facility] REPOSITORY Patient Outreach (FAMPWS) KACIE CACERES ([id number]) 1975 F Date Time Provider Department 06/03/18 EFFIE HADLEY) THERESE During your visit today, we recorded the following information about you: Nusrat Knott LPN, LUIS A 07/04/2018 3:00 AM Signed TRANSITION CARE MANAGEMENT (TCM) INITIAL CONTACT Associate Professor Of Biology Outreach Provider Action/FYI: Pt was recommended to have repeat ct scan in 4 -6 weeks. Otherwise no c/o at this time. Initial contact with patient post discharge, spoke to patient. Patient identified by name and . TRANSITION CARE MANAGEMENT INITIAL OUTREACH DOCUMENTATION: Date of Outreach: 06/03/2018 06/03/2018 Outreach Attempt 1: Contact Made - Date of Discharge 06/01/2018 06/01/2018 Some recent data might be hidden SUMMARY: -Pt discharged from [facility] on 06/01/18. -Admitted for: acute multilobar bilateral community -acquired cavitary pneumonia Do you have a hospital follow up appointment with your PCP? Appointment on 06/06/18 with Katherine Spauldinglogfozia HEARD. Yes. Remind patient of appointment date, time, and location. If not within 14 calendar days of discharge - please reschedule accordingly. MEDICATIONS: Many patients have questions or concerns about their medications once they are home. Were you prescribed any new medications? Yes, Augmentin, doxycycline Were you told to hold any medications? No Were any of your medications discontinued? No Do you have any questions about getting or taking your medications? No Your discharge instructions/After visit Summary (AVS) are important in guiding you through the recovery process. Is there anything I might help you understand? No Do you have all the necessary equipment and supplies at home? Yes Medical records from recent hospitalization: Placed for provider to review Allergies As of Date: 06/03/2018 Noted Allergy Reaction SULFA (SULFONAMIDE ANTIBIOTICS) 11/17/2005 8 - GI Upset Date Reviewed: 02/22/2018 Reviewed by: Tati Peralta Ma - Fully Assessed Reason for Visit: Transition Of Care [4074] Prescriptions as of 06/03/2018 Sig: X OMEPRAZOLE 20 MG CAPSULE,RAMILA* TAKE 1 CAPSULE DAILY 30 MINUT* Problem List As Of Date 06/03/2018 Noted Resolved AMA (advanced maternal age) multigravida 35+ [O*INVALID FOR* Abnormal mammogram [R92.8] INVALID FOR* Acid reflux [K21.9] Obesity (BMI 30.0-34.9) [E66.9] GERD without esophagitis [K21.9] INVALID FOR* More... Encounter Status:Closed by CIPRIANO BROWN on 07/04/18 DISCHARGE SUMMARY Observed: 06/01/2018 Status: F Source: PERRY 12:12 PM [facility] Medical Records Department [address] [place] [address] Discharge Summary 06/01/18 1206 MR#: [id number] Acct: [id number] Name: KACIE CACERES Rep #: [id number] : 1975 42 From: Jaqueline Crowell MD PCP: Laron Hadley MD Status: DIS IN Y Location: [place] [address]-1 Discharge Date and Diagnosis Date of Admission: 05/29/18 Date of Discharge: 06/01/18 - Primary Discharge Diagnosis #1 acute multilobar bilateral community-acquired cavitary pneumonia. #2 sepsis. #3 alcohol abuse. Hospital Course and Treatment Imaging Results: Clinical Impression(s) from Imaging Studies Chest CTA 05/29/18 19:53 IMPRESSION: Negative for pulmonary embolus. Normal thoracic aorta. Negative for coronary calcifications. Shotty lymph nodes of the middle mediastinum, aortopulmonary window and left hilum. Broad area of consolidation in the posterior left lower lobe with minor volume loss. Negative for pleural effusion. 11 mm noncalcified nodule of the lingula with a central lucency suspicious for cavitation. 4 mm noncalcified noncavitating nodule of the right lower lobe. Small areas of atelectasis and/or small confluent infiltrate in the right lower lobe. Generalized atelectatic posterior changes of the right lung. Electronically Signed: Josie Conte MD at 21:44 EST , Service support , Chest X-Ray 05/29/18 19:53 IMPRESSION: Left lower lobe retrocardiac consolidation, potential pneumonic process. Electronically Signed: Josie Conte MD at 21:13 EST , Service support , Operations: None Procedures: None Summary of Care Provided: Patient seen and examined on the day of discharge and appeared to be stable to be discharged home. Her cough is getting better, mild dry cough. She has been afebrile overnight. Her vital signs are stable. The patient is a 42 year old F admitted because of shortness of breath, cough and chest discomfort, found to have left lower lobe consolidation and cavitary lesions in the lingula and right lower lobe as well as infiltrate on the right lower lobe on CTA chest done on admission which is consistent with multilobar community-acquired pneumonia. She did have evidence of sepsis upon admission. She did have mild leukocytosis and she has been having low-grade fever during this admission. She was treated with IV Unasyn and vancomycin because of the cavitary pneumonia which could be due to staphylococcal infection. Her lactic acid was normal. Apart from leukocytosis, CBC and BMP was unremarkable. EKG was unremarkable as well and troponin was negative. With above-mentioned treatment with IV antibiotics, patient symptoms improved, had less cough and she remained afebrile for 24 hours. Her pneumococcal and Legionella antigen were negative. Respiratory panel for viruses were negative. Blood culture showed no growth in 48 hours. Sputum culture revealed mixed normal respiratory jan. Her oxygenation remained stable throughout admission. P she did have a history of alcohol abuse and she was treated with folic acid and thiamine supplement as well as Ativan as needed during this hospital stay. Patient was discharged home in a stable medical condition, discharged on Augmentin and doxycycline for 7 days of treatment to complete total of 10 days, recommended to follow-up with PCP in 1 week and probably she would need to repeat CT scan chest in 4-6 weeks to assure resolution of the cavitary pneumonia. - Physical Exam General: Alert, Oriented x3, Cooperative, No apparent distress HEENT: Atraumatic, PERRLA, EOMI, Normocephalic Oral: Moist Mucosa, No Gingival or Mucosal Lesions/ Ulcerations Neck: Supple, No JVD, Negative Carotid Bruits, Trachea Midline, Thyroid Normal Size and Texture Lungs: No rhonchi, No wheeze, Diminished, Rales, - - Right lung base fine crackles, otherwise clear. Cardiovascular: Regular rate, Regular Rhythm, Normal S1, Normal S2, PMI Normal Abdomen: Bowel Sounds Present, Soft, Non Tender, Non-Distended, No Hepato-splenomegaly Extremities: No clubbing, No cyanosis, No edema Skin: No rashes, No breakdown Lymphatic: No Cervical, Supraclavicular, or Inguinal Adenopathy Neurological: Cranial nerves II-XII grossly intact, Neuro grossly intact Psych/Mental Status: Normal Affect, Appropriate Vital Signs Temp Pulse Resp BP Pulse Ox 97.5 F L 87 18 123/87 H 98 06/01/18 07:45 06/01/18 07:45 06/01/18 07:45 06/01/18 07:45 06/01/18 07:45 Oxygen Flow Rate (L/min) 2 Oxygen Delivery Method Room Air Weight: 199 lb 8.293 oz Body Mass Index (BMI) 36.7 Intake and Output for Last 24 Hours Intake Total 6809 / 6809 4753 / 4753 2149 / 2149 Output Total 1900 / 1900 Balance 4909 / 4909 4753 / 4753 2149 / 2149 Microbiology Past 72 Hours 05/29/18 22:08 Blood Culture - Preliminary Blood Culture (Wb) - Left Hand No growth in 48 hours. 05/29/18 22:08 Blood Culture - Preliminary Laboratory Tests Past 24 Hrs Vancomycin Trough 8.2 Discharge Activity: Return to Normal Activity Return to work on:: 06/05/18 Weight Bearing Status: Full weight bearing Call your doctor if you observe: Fever of 101 or Higher, Shortness of breath, Dizziness, Fainting spells, Chest pain, Increased palpitations (irregular heartbeat), Uncontrolled pain Home Medications: Medications to take at Discharge Omeprazole [Prilosec] 20 mg PO DAILY 04/07/15 Ibuprofen [Motrin] 600 mg PO Q6H PRN 05/29/18 Amox/Clavulanate Tablet [Augmentin Tablet] 875 mg PO Q12H #14 tablet 06/01/18 Doxycycline 100 mg PO BID #14 capsule 06/01/18 Following Prescrptions Were Given to Patient: Amox/Clavulanate Tablet [Augmentin Tablet] 875 mg PO Q12H #14 tablet Doxycycline 100 mg PO BID #14 capsule Primary Care Physician: Laron Hadley MD [Primary Care Provider] - Please follow up with your Primary Care Physician in: 1 week. Patient Instructions: Discharge Instructions for Pneumonia Disposition: Home Minutes spent on discharge:: 32 Patient Condition:: Stable Medical Necessity - Tobacco Use Smoking Status: Current every day smoker Tobacco Use: Cigarettes Meaningful Use Info Meaningful Use Diagnoses (Choose all that apply): None applicable Code Visit Inpatient E AND M: 31817 Disch Hosp 06/01/18 1212 <Electronically signed by Jaqueline Crowell MD> Date Jaqueline Crowell MD Cosigner Signature (if applicable): Date CC: Laron Hadley MD; Jaqueline Crowell Signed DISCHARGE INSTRUCTION Observed: 06/01/2018 Status: F Source: [place] 8:06 AM [facility] Medical Records Department [address] [place] [address] Instructions for Home/Discharge Instructions 06/01/18 0805 MR#: [id number] Acct: [id number] Name: KACIE CACERES Rep #: [id number] : 1975 42 From: Jaqueline Crowell MD PCP: Laron Hadley MD Status: ADM IN - Discharge Diagnoses Current Active Problems: Current Active and Chronic Problems (Last Reviewed 05/30/18 @ 07:44 by Micheal Wang MD) Cavitary pneumonia (Acute) Sepsis due to pneumonia (Acute) You will use the following diet at home:: Regular Your food should be the consistency of: Regular Discharge Activity: Return to Normal Activity Return to work on:: 06/05/18 Weight Bearing Status: Full weight bearing Call your doctor if you observe: Fever of 101 or Higher, Shortness of breath, Dizziness, Fainting spells, Chest pain, Increased palpitations (irregular heartbeat), Uncontrolled pain Instructions: Discharge Instructions for Pneumonia Allergies/Adverse Reactions: Allergies Sulfa (Sulfonamide Antibiotics) Adverse Reaction (Verified 05/29/18 19:34) Diarrhea Medications to take at Discharge Omeprazole [Prilosec] 20 mg PO DAILY 04/07/15 Ibuprofen [Motrin] 600 mg PO Q6H PRN 05/29/18 Amox/Clavulanate Tablet [Augmentin Tablet] 875 mg PO Q12H #14 tablet 06/01/18 Doxycycline 100 mg PO BID #14 capsule 06/01/18 The following prescriptions were given: Amox/Clavulanate Tablet [Augmentin Tablet] 875 mg PO Q12H #14 tablet Doxycycline 100 mg PO BID #14 capsule Primary Care Physician: Laron Hadley MD [Primary Care Provider] - Please follow up with your Primary Care Physician in: 1 week. Test Results: Test results from this visit will be discussed in further detail at your follow-up appointment, if applicable. 06/01/18 0806 <Electronically signed by Jaqueline Crowell MD> Date Jaqueline Crowell MD CC: Laron Hadley MD VANCOMYCIN, TROUGH Collected: 05/31/2018 Status: F Source: PERRY LEVEL 11:20 AM [facility] Order Comment: Comments: Draw 30 min prior to vanco dose due at 1200 Time Medication is to be Given? 1200 TYPE CODE TESTS RESULT OUT OF RANGE REFERENCE UNITS LAB L501.8820 5.0-15.0 ug/mL Normal VANCO, TROUGH 8.2 Result Comment: VANCOMYCIN STANDARED DRUG THERAPY TROUGH LEVEL: 5.0 - 15.0 mg/L VANCOMYCIN HIGH INTENSITY THERAPY TROUGH LEVEL: 15.0 - 20.0 mg/L High Intensity therapy recommended for serious life threatening infections include: - Meningitis -Endocarditis -Pneumonia (Ventilator/Healtcare Associated) -Sepsis PLEASE CONTACT PHARMACY SERVICES (#[id number]) FOR INTERPRETATION OF RESULTS. Performed By: #### L501.8820 #### [facility] [address] [facility] [place], [address] 12 LEAD ELECTROCARDIOGRAM Observed: 05/31/2018 Status: F Source: EPRRY 9:54 AM [facility] Cardiovascular Services [address] [place] [address] 12 Lead EKG 05/29/18 1941 MR#: [id number] Acct: [id number] Name: KACIE CACERES Rep #: [id number] : 1975 42 From: Jin Dye MD Attending Dr: Jaqueline Crowell Status: ADM IN Ordering Dr: Giovanna Garza MD Date: 05/29/18 [place] [facility] [place] F C Admitted: 05/29/18 Test Reason : CP Blood Pressure : / mmHG Vent. Rate : 127 BPM Atrial Rate : 127 BPM P-R Int : 126 ms QRS Dur : 082 ms QT Int : 300 ms P-R-T Axes : 040 041 008 degrees QTc Int : 436 ms Sinus tachycardia Otherwise normal ECG Confirmed by REBECCA SNOWDEN, JIN ([id number]), news videotape editor GOLD WOOTEN ([id number]) on 05/31/2018 9:53:52 AM Referred By: DR GREGORIO Confirmed By:JIN DYE MD 05/31/18 0953 Date Jin Dye MD CC: Laron Hadley MD; Jaqueline Crowell; Giovanna Garza MD Signed Observed: 05/30/2018 Status: F Source: HOOSICK CULTURE, SPUTUM 9:10 AM [facility] Gram Stain Acceptable Specimen? Yes (<25 Epithelial cells per/lpf) Gram Stain Rare Epithelial cells Rare White Blood Cells 2+ Gram negative rods 1+ Gram positive cocci Resp. Culture Mixed normal respiratory jan. No Haemophilus, Streptococcus pneumoniae, beta-hemolytic Streptococcus or Staphylococcus aureus isolated. Performed By: #### M100.0800 #### [facility] [address] [facility] [place], [address] HISTORY AND PHYSICAL Observed: 05/30/2018 Status: F Source: [place] EXAM 7:53 AM [facility] Medical Records Department [address] [place] [address] History and Physical 05/29/18 2246 MR#: [id number] Acct: [id number] Name: KACIE CACERES Rep #: [id number] : 1975 42 From: Micheal Wang MD PCP: Laron Hadley MD Status: ADM IN [place] [facility] [id number] Problem List (1) Cavitary pneumonia Status: Acute (2) Sepsis due to pneumonia Status: Acute History of Present Illness Date of Admission: 05/29/18 Chief Complaint: COUGH The patient is a 42 year old F with a significant history of tobacco abuse who presented because of progressively worsening cough. Her cough is productive for sputum but she is unable to tell the color as she swallows the sputum all the time. Patient reports that she has developed pain that span across her entire chest and goes to her back. She attributes this pain to coughing. She rated her pain as 4 at rest; and a 6-7 with coughing. Associated with her symptoms is shortness of breath at rest. Further she has had chills and night sweats. She had some transient episode of nausea. At emergency department patient was found to have elevated white count; tachypnea and tachycardia. EKG showed sinus tachycardia. Because of concern for pulmonary embolism, emergency department doctor did CTPA. CTPA showed no pulmonary embolism. However it showed lymph adenopathy and area of cavitation. Past Medical History Medical History: Medical History (Last Reviewed 05/30/18 @ 07:44 by Micheal Wang MD) GERD (gastroesophageal reflux disease) K21.9 Allergies Sulfa (Sulfonamide Antibiotics) Adverse Reaction (Verified 05/29/18 19:34) Diarrhea Home Medications: Ambulatory Orders Medication Instructions Recorded Omeprazole [Prilosec] 20 mg PO DAILY 04/07/15 Ibuprofen [Motrin] 600 mg PO Q6H PRN 05/29/18 Surgical History: - - 2 . Lives: Spouse/ Significant Other Smoking Status: Current every day smoker Tobacco Use: Cigarettes Alcohol: Heavy - *Family History Maternal History Items: Diabetes Paternal History Items: Hypertension Review of Systems Constitutional: Reports: Anorexia, Chills, Night Sweats. Denies: Fever, Weight Change HEENT: Denies: Head Aches, Sinus Congestion, Sinus Drainage Cardiovascular: Reports: Chest Pain. Denies: Palpitations Respiratory: Reports: Cough, Shortness of breath at rest, Sputum production Gastrointestinal: Reports: Nausea. Denies: Abdominal Pain, Vomiting Genitourinary: Denies: Dysuria Musculoskeletal: Denies: Joint Pain, Joint Tenderness Skin: Denies: Rash, Wounds Neurological: Denies: Numbness, Tingling, Focal weakness Psychiatric: Denies: Anxiety, Depression, Homicidal Ideations, Suicidal Ideations Hematologic/ Lymphatic: Denies: Easy Bruising, Easy Bleeding VTE Information - Inpt Only VTE Present on Admission: No VTE Mechan Device Prophylaxis: None VTE Pharm Prophylaxis ordered?: Yes Patient Problems: Active and Suspected Problems (Last Updated 05/29/18 @ 23:35 by Micheal Wang MD) Cavitary pneumonia (Acute) Sepsis due to pneumonia (Acute) - Physical Exam General: Alert, Oriented x3, Cooperative HEENT: Atraumatic, PERRLA, EOMI, Normocephalic Neck: Supple, No JVD, Negative Carotid Bruits Lungs: Clear to auscultation, Normal air movement, Tachypneic Cardiovascular: No murmurs, Tachycardic Abdomen: Bowel Sounds Present, Soft, Non Tender Extremities: No edema, Capillary Refill Less than 3 Seconds Skin: No rashes, No breakdown Musculoskeletal: No Tenderness to Palpation of Joints or Extremities Neurological: Neuro grossly intact Psych/Mental Status: Normal Affect, Appropriate Vital Signs Temp Pulse Resp BP Pulse Ox 97.5 F L 115 H 30 H 101/76 99 05/29/18 19:35 05/29/18 21:01 05/29/18 21:01 05/29/18 21:01 05/29/18 21:01 Oxygen Flow Rate (L/min) 2 Oxygen Delivery Method Nasal Cannula Weight: 90.4 kg Body Mass Index (BMI) 36.4 Laboratory Tests Past 24 Hrs WBC 12.0 H RBC 4.81 Hgb 13.5 WBC RBC Hgb Hct MCV MCH MCHC RDW RDW Differential Plt Count MPV Immature Gran % (Auto) Neut % (Auto) Lymph % (Auto) Smith % (Auto) Assessment/Plan All Active Problems (Last Updated 05/29/18 @ 23:35 by Micheal Wang MD) Cavitary pneumonia (Acute) Sepsis due to pneumonia (Acute) The patient is a 42 year old F with a significant history of tobacco abuse who presented because of progressively worsening cough and shortness of breath; and found to have radiographic evidence of cavitary lesions and lymph adenopathy and meets criteria for SIRS with likely source of infection as pneumonia. Severe Sepsis due to cavitary pneumonia. Patient meets SIRS criteria with tachycardia of 143 and elevated white count Severe sepsis since patient was found to have hemodynamic compromise with SBP < 90 bust responded to fluids. Patient received vancomycin and Unasyn at emergency department. We will continue vancomycin and Unasyn. Lactic acid: 1.4 Highest RR 30 Oxygen saturation: unremarkable Blood culture 2 is pending Respiratory Gram stain and culture ordered IV hydration with Normal saline. DuoNeb scheduled. Albuterol as needed Legionella antigen screen and Strep antigen ordered Prednisone x 1 due to severity of her condition. Please evaluate for further needs of steroids. Tylenol for fever and pain. Morphine and oxycodone for pain. Bowel protocol with oxycodone. Alcohol dependence Patient reported that she drinks 2 shots of vodka a day. Will place patient on CIWA protocol with Ativan, thiamine, folic acid and multivitamins. Counseled Tobacco abuse Patient reported she is cutting down on tobacco use. She thinks she will not smoke again. Counseled Patient declined nicotine patch. GERD Omeprazole continued. DVT Prophylaxis Lovenox Code Visit Inpatient E AND M: 80166 Init Hosp L3 05/30/18 0753 <Electronically signed by Micheal Wang MD> Date Micheal Wang MD Cosigner Signature: Date (if applicable) CC: Laron Hadley MD; Micheal Wang MD Signed CBC W/DIFF, AUTOMATED Collected: 05/30/2018 Status: F Source: PERRY 5:33 AM [facility] TYPE CODE TESTS RESULT OUT OF RANGE REFERENCE UNITS LAB L100.1000 4.4-11.0 K/mm3 Normal WBC 10.9 LAB L100.1200 4.2-5.4 M/mm3 Low RBC 3.92 LAB L100.1300 12.0-15.0 g/dl Low HGB 11.2 LAB L100.1400 37-47 % Low HCT 34.4 LAB L100.1500 81-99 fL Normal MCV 87.8 LAB L100.1600 27.0-32.0 pg Normal MCH 28.6 LAB L100.1700 32-36 g/gl Normal MCHC 32.6 LAB L100.1810 11.6-14.6 % Normal RDW CV 14.0 LAB L100.1820 35.1-43.9 fl Normal RDW SD 43.9 LAB L100.1900 150-450 K/mm3 Normal PLT 159 LAB L100.2000 6.2-12.0 fl Normal MPV 11.3 LAB L100.2100 47-70 % High NEUT% 92.8 LAB L100.2200 19-41 % Low LY% 3.4 LAB L100.2300 0-10 % Normal MONO% 3.4 LAB L100.2400 0-5 % Normal EO% 0.0 LAB L100.2500 0-1 % Normal BASO% 0.0 LAB L100.2550 0.0-0.9 % Normal IM GRAN % 0.400 Result Comment: IG% - Immature Granulocytes (promyelocytes, myelocytes and metamyelocytes) > 1% indicates that a LEFT SHIFT is Present. LAB L100.2620 2.0-7.7 X10 3/uL High Absolute Neut 10.1 LAB L100.2720 0.83-4.51 X10 3/ul Low Absolute Lymph 0.37 Performed By: #### L100.0100 #### [facility] [address] [place], [address] BASIC METABOLIC Collected: 05/30/2018 Status: F Source: [place] PROFILE ([facility]) 5:33 AM [facility] TYPE CODE TESTS RESULT OUT OF RANGE REFERENCE UNITS LAB L501.0100 74-106 mg/dL High GLU 122 Result Comment: Fasting Glucose result from 100 to 125 mg/dL suggests IMPAIRED HOMEOSTASIS per A.D.A. criteria. Please note revised GLUCOSE reference range effective 2017. LAB L501.1000 7-18 mg/dL Low BUN 5 LAB L501.1100 0.55-1.02 mg/dL Normal CREAT,SERUM 0.65 Result Comment: The validity of the calculated GFR AND GFRAA in patients over 70 years has not been determined. Clinical correlation is essential. LAB L501.1110 >60 mL/min Normal EST GFR 105 Result Comment: Non- GFR Calc LAB L501.1115 >60 mL/min Normal EST GFR - AA 127 Result Comment: GFR Calc LAB L501.1255 ml/min Normal Estimated CRCL 85.08 LAB L501.1300 10-20 RATIO Low BUN/CRE 7.6 LAB L501.2200 8.5-10 mg/dL Low .1 CA 7.2 LAB L501.5300 136-14 mmol/L Normal 5 NA 143 LAB L501.5600 3.5-5. mmol/L Normal 1 K 3.7 LAB L501.5900 98-107 mmol/L High CL 114 LAB L501.6100 21.0-3 mmol/L Normal 2.0 CO2 21.0 LAB L501.6200 5-15 Normal GAP 8 Performed By: #### L500.2500 #### [facility] [address] [facility] [address] Observed: 05/30/2018 Status: F Source: [place] RESPIRATORY PANEL 1:45 AM [facility] RP PANEL Normal Reference Range = Not Detected ADENOVIRUS Not Detected HUMAN METAPHNEUMO Not Detected INFLUENZA A Not Detected INFLUENZA A (SUBTYPE H1) Not Detected INFLUENZA A (SUBTYPE H3) Not Detected INFLUENZA B Not Detected PARAINFLUENZA 1 Not Detected PARAINFLUENZA 2 Not Detected PARAINFLUENZA 3 Not Detected PARAINFLUENZA 4 Not Detected RHINOVIRUS Not Detected RSV A Not Detected RSV B Not Detected NAAT METHOD Testing was performed using nucleic acid amplification Performed By: #### M100.638 #### [facility] [address] [facility] [address] EMERGENCY DEPARTMENT Observed: 05/30/2018 Status: F Source: [place] SUMMARY 1:26 AM [facility] Medical Records Department [address] [place] [address] Emergency Department Summary 05/29/181954 MR#: [id number] Acct: [id number] Name: KACIE CACERES Rep #: [id number] : 1975 42 From: Giovanna Garza MD PCP: Laron Hadley MD Status: ADM IN - ER Visit Summary Date of Service: 05/29/18 Chief Complaint: Chest pain and shortness of breath History of Present Illness: The patient is a 42 F who presents for chest pain and shortness of breath with onset last night. Patient has had a cough for the last few days, but last night had sudden onset of left-sided chest pain, shortness of breath, worsening cough, back pain, chills and sweats. Patient is a smoker. She denies any history of DVT or PE. No recent travel or surgery. No history of exogenous hormone use. Patient has no other medical history. Patient has no other symptoms at this time, including no acute leg pain or swelling. She did fall a few weeks ago and has been having leg pain ever since. She was evaluated at that time for a DVT due to the leg pain. Physical Examination: Vital signs: afebrile, normotensive, tachycardic, no hypoxia on room air General: well nourished, well developed, in mild distress Skin: warm, moist, no rash, no pallor HEENT: normocephalic and atraumatic; PERRL, EOMI, moist mucous membranes Cardiovascular: Tachycardic rate and rhythm without murmurs, no peripheral edema, 2+ pulses all distal extremities Respiratory: Tachypnea with mild increased work of breathing, lungs show rhonchi in the left lower field and a expiratory squeak, no wheezing Abdominal: Abdomen is soft, nontender with normoactive bowel sounds, no guarding or rebound, no masses MSK: Moves all extremities, no deformities, normal strength, no calf swelling, tenderness, palpable cords Neuro: Awake and alert, oriented 4. No facial droop, sensation and motor function intact and symmetric Test Results: Abnormal Lab Results WBC 12.0 H RBC 4.81 Hgb 13.5 WBC RBC Hgb Hct MCV MCH MCHC RDW RDW Differential Plt Count MPV Immature Gran % (Auto) Neut % (Auto) Lymph % (Auto) Smith % (Auto) Clinical Impression(s) from Imaging Studies Chest CTA 05/29/18 19:53 IMPRESSION: Negative for pulmonary embolus. Normal thoracic aorta. Negative for coronary calcifications. Shotty lymph nodes of the middle mediastinum, aortopulmonary window and left hilum. Broad area of consolidation in the posterior left lower lobe with minor volume loss. Negative for pleural effusion. 11 mm noncalcified nodule of the lingula with a central lucency suspicious for cavitation. 4 mm noncalcified noncavitating nodule of the right lower lobe. Small areas of atelectasis and/or small confluent infiltrate in the right lower lobe. Generalized atelectatic posterior changes of the right lung. Electronically Signed: Josie Conte MD at 21:44 EST , Service support , Chest X-Ray 05/29/18 19:53 IMPRESSION: Left lower lobe retrocardiac consolidation, potential pneumonic process. Electronically Signed: Josie Conte MD at 21:13 EST , Service support , Medications Given Discontinued Medications Sodium Chloride () 1,000 mls @ 1,000 mls/hr IV .Q1H ONE Stop: 05/29/18 20:52 Last Admin: 05/29/18 20:13 Dose: 1,000 mls/hr Ampicillin Sodium/Sulbactam (Sodium 3 gm/ Sodium Chloride) 112 mls @ 150 mls/hr IV X1 ONE Stop: 05/29/18 22:37 Last Admin: 05/29/18 22:41 Dose: 150 mls/hr Vancomycin HCl 1,250 mg/ (Dextrose) 275 mls @ 250 mls/hr IV X1 ONE Stop: 05/29/18 22:59 Last Admin: 05/29/18 23:53 Dose: 250 mls/hr Ibuprofen (Motrin) 600 mg PO X1 ONE Stop: 05/29/18 22:47 Last Admin: 05/29/18 23:00 Dose: 600 mg Morphine Sulfate () 4 mg IV X1 ONE Stop: 05/29/18 19:54 Last Admin: 05/29/18 20:13 Dose: 4 mg Ondansetron HCl (Zofran) 4 mg IV X1 ONE Stop: 05/29/18 19:54 Last Admin: 05/29/18 20:13 Dose: 4 mg Emergency Department Course and Treatment: Patient presents with pleuritic chest pain, back pain, tachycardia and shortness of breath, is a smoker, and has an EKG that shows an S1Q3T3 pattern. Patient's presentation is concerning for possible pulmonary embolism or pulmonary infection. Patient was given IV fluids for hydration. Chest x-ray was performed that was consistent with a left lower lobe infiltrate. Patient had leukocytosis of 12. Lactate within normal limits at 1.4. CTA was performed and showed no pulmonary embolism but did show a large left lower lobe pneumonia, a lingular cavitary lesion, and concern for a developing right pneumonia. Patient was started on antibiotic coverage for pneumonia, including coverage for pathogen to cause cavitary lesions. Blood cultures obtained. Patient was reevaluated and still was tachycardic, tachypneic and still symptomatic, although somewhat improved in her subjective symptoms. Because of her multilobar pneumonia with cavitary lesion and sepsis, she will benefit from inpatient IV antibiotics and further management. Treatment Plan: [] Disposition: [] Impression: Multilobar pneumonia, cavitary pneumonia, sepsis This note was generated with [employer] dictation software. It may contain incorrect words, spelling, and punctuation that were not noted in review of the chart prior to signing ED Disposition - Plan for ED Patient: Disposition: Acute Care Hospital [facility] Chief Complaint: Cough What to do if you have Problems For any increased pain, shortness of breath, bleeding, nausea or vomiting, chest pain, or any unexpected problems, contact your Primary Care Provider. Call [facility] ([phone]) or report to the closest Emergency Room. Call 911 if necessary. 05/30/18 0126 <Electronically signed by Giovanna Garza MD> Date Giovanna Garza MD Cosigner Signature (If Indicated): Date CC: Laron Hadley MD Observed: 05/30/2018 Status: F Source: P[place]Y LEGIONELLA ANTIGEN 12:15 AM [facility]INE REPOSITORY Order Date: 05/30/18 Specimen Source: URINE, CLEAN CATCH Legionella, UR Legionella Antigen result interpretation: Negative Presumptive negative for Legionella pneumophila serogroup 1 antigen in urine, suggesting no recent or current infection. Legionella Ag, Urine Negative (See interpretation below) Performed By: #### M300.4500 #### [facility] [address] [place], [address] STREP Observed: 05/30/2018 Status: F Source: PERRY PNEUMONIAE ANTIG(UR,CSF) 12:15 AM [facility] REPOSITORY S pneumo Ag URINE INTERPRETATION Negative Urine Presumptive negative for pneumococcal pneumonia, suggesting no current or recent pneumococcal infection. Infection due to S pneumoniae cannot be ruled out since the antigen present in the sample may be below the detection limit of the test. Strep pneumo Test Negative URINE (See interpretation below) Performed By: #### M300.4600 #### [facility] [address] [place], [address] Observed: 05/29/2018 Status: F Source: PERRY CULTURE, BLOOD (WB) 10:08 PM [facility] REPOSITORY BC No growth in 5 days. Performed By: #### M200.1000 #### [facility] [address] [place], [address] Observed: 05/29/2018 Status: F Source: PERRY CULTURE, BLOOD (WB) 10:08 PM [facility] REPOSITORY BC No growth in 5 days. Performed By: #### M200.1000 #### [facility] [address] [place], [address] CBC W/DIFF, AUTOMATED Collected: 05/29/2018 Status: F Source: PERRY 8:00 PM [facility] REPOSITORY TYPE CODE TESTS RESULT OUT OF RANGE REFERENCE UNITS LAB L100.1000 4.4-11.0 K/mm3 High WBC 12.0 LAB L100.1200 4.2-5.4 M/mm3 Normal RBC 4.81 LAB L100.1300 12.0-15.0 g/dl Normal HGB 13.5 LAB L100.1400 37-47 % Normal HCT 41.3 LAB L100.1500 81-99 fL Normal MCV 85.9 LAB L100.1600 27.0-32.0 pg Normal MCH 28.1 LAB L100.1700 32-36 g/gl Normal MCHC 32.7 LAB L100.1810 11.6-14.6 % Normal RDW CV 14.0 LAB L100.1820 35.1-43.9 fl Normal RDW SD 43.1 LAB L100.1900 150-450 K/mm3 Normal PLT 204 LAB L100.2000 6.2-12.0 fl Normal MPV 11.1 LAB L100.2100 47-70 % High NEUT% 91.3 LAB L100.2200 19-41 % Low LY% 3.8 LAB L100.2300 0-10 % Normal MONO% 3.8 LAB L100.2400 0-5 % Normal EO% 0.0 LAB L100.2500 0-1 % Normal BASO% 0.1 LAB L100.2550 0.0-0.9 % High IM GRAN % 1.000 Result Comment: IG% - Immature Granulocytes (promyelocytes, myelocytes and metamyelocytes) > 1% indicates that a LEFT SHIFT is Present. LAB L100.2620 2.0-7.7 X10 3/uL High Absolute Neut 11.0 LAB L100.2720 0.83-4.51 X10 3/ul Low Absolute Lymph 0.46 LAB L100.4500 Normal SMEAR COMMENT SCANNED Result Comment: LYMPHOPENIA NOTED Performed By: #### L100.0100 #### [facility] [address] [place], [place], [address] BASIC METABOLIC Collected: 05/29/2018 Status: F Source: [place] PROFILE (BMP) 8:00 PM [facility] REPOSITORY TYPE CODE TESTS RESULT OUT OF RANGE REFERENCE UNITS LAB L501.0100 74-106 mg/dL High GLU 123 Result Comment: Fasting Glucose result from 100 to 125 mg/dL suggests IMPAIRED HOMEOSTASIS per A.D.A. criteria. Please note revised GLUCOSE reference range effective 2017. LAB L501.1000 7-18 mg/dL Low BUN 6 LAB L501.1100 0.55-1.02 mg/dL Normal CREAT,SERUM 0.90 Result Comment: The validity of the calculated GFR AND GFRAA in patients over 70 years has not been determined. Clinical correlation is essential. LAB L501.1110 >60 mL/min Normal EST GFR 73 Result Comment: Non- GFR Calc LAB L501.1115 >60 mL/min Normal EST GFR - AA 88 Result Comment: GFR Calc LAB L501.1255 ml/min Normal Estimated CRCL 64.40 LAB L501.1300 10-20 RATIO Low BUN/CRE 6.7 LAB L501.2200 8.5-10 mg/dL Normal .1 CA 8.8 LAB L501.5300 136-14 mmol/L Low 5 NA 133 LAB L501.5600 3.5-5. mmol/L Normal 1 K 3.6 LAB L501.5900 98-107 mmol/L Normal CL 101 LAB L501.6100 21.0-3 mmol/L Normal 2.0 CO2 24.0 LAB L501.6200 5-15 Normal GAP 8 Performed By: #### L500.2500, L501.4010 #### [facility] [address] [place], [address] TROPONIN-I Collected: 05/29/2018 Status: F Source: [place] 8:00 PM [facility] REPOSITORY TYPE CODE TESTS RESULT OUT OF RANGE REFERENCE UNITS LAB L501.4010 <0.045 ng/mL Normal < 0.015 TROPONIN-I Result Comment: TROPONIN-I EXPECTED VALUES <0.045 Negative 0.045 - 0.590 Consistent with Cardiac Damage > OR = 0.600 Critical Value Not every elevated troponin is indicative of SC. These values should be used with clinical judgement in examining the patient's clinical picture for diagnosis. To establish a diagnosis of SC versus myocardial injury, there must be a demonstrated rise and/or fall in the troponin values, in addition to ischemic symptoms, EKG changes, new regional wall motion abnormality, and/or angiographical evidence. PLEASE NOTE: REFERENCE RANGES EDITED 17 Performed By: #### L500.2500, L501.4010 #### [facility] [address] [facility]. [place], [place], [address] PROTHROMBIN TIME W/INR Collected: 05/29/2018 Status: F Source: [place] 8:00 PM [facility] REPOSITORY TYPE CODE TESTS RESULT OUT OF RANGE REFERENCE UNITS LAB L300.4150 11.7-14.9 SECONDS Normal PROTIME 14.0 LAB L300.4200 Normal INR 1.1 Performed By: #### L300.3900, L300.4310 #### [facility] [address] [place], [address] PARTIAL THROMBOPLAST Collected: 05/29/2018 Status: F Source: [place] TIME 8:00 PM [facility] REPOSITORY TYPE CODE TESTS RESULT OUT OF RANGE REFERENCE UNITS LAB L300.4310 24.1-36.2 Seconds Normal PTT 35.5 Performed By: #### L300.3900, L300.4310 #### [facility] [address] [place], [address] LACTIC ACID Collected: 05/29/2018 Status: F Source: [place] 8:00 PM [facility] REPOSITORY Order Comment: Yes/No query for Sepsis Lactate Rule Y TYPE CODE TESTS RESULT OUT OF RANGE REFERENCE UNITS LAB L503.6005 0.4-2.0 mmol/L Normal LACTIC ACID 1.4 Performed By: #### L503.6005 #### [facility] [address] [place], [address] CHEST 1 VIEW Observed: 05/29/2018 Status: F Source: [place] (PORTABLE) 7:55 PM [facility] REPOSITORY [facility] Imaging Services [address] [place] [address] Chest 1 View (Portable) MR#: [id number] Acct: [id number] Name: KACIE CACERES Rep #: [id number] : 1975 F 42 From: Josie Conte MD PCP: Laron Hadley MD Status: REG ER Study: Chest 1 View (Portable) Date of Exam: 05/29/18 Exam# [id number] Ordering Dr: Giovanna Garza MD STUDY: X-RAY CHEST REASON FOR EXAM: Female, 42 years old. Chest pain TECHNIQUE: Single AP portable view of the chest. COMPARISON: None. FINDINGS: Retrocardiac left lower lobe consolidation. Negative for substantial pleural effusion. Normal size heart. Normal mediastinum and chicho. Normal visualized pulmonary arteries. Normal visualized aortic arch and descending thoracic aorta. Normal visualized thoracic spine. Normal visualized ribs, clavicles, and shoulders. There is no demonstrated abnormality of the visualized soft tissue structures of the upper abdomen. RAD/Chest 1 View (Portable) IMPRESSION: Left lower lobe retrocardiac consolidation, potential pneumonic process. Electronically Signed: Josie Conte MD at 21:13 EST , Service support , CC: Laron Hadley MD; Giovanna Garza MD Icu Registered Nurse: Signed CTA CHEST W/WO Observed: 05/29/2018 Status: F Source: PERRY CONTRAST 7:55 PM [facility] REPOSITORY [facility] Imaging Services [address] [place] [address] CTA Chest W/WO Contrast MR#: [id number] Acct: [id number] Name: KACIE CACERES Rep #: [id number] : 1975 F 42 From: Josie Conte MD PCP: Laron Hadley MD Status: REG ER Study: CTA Chest W/WO Contrast Date of Exam: 05/29/18 Exam# [id number] Ordering Dr: Giovanna Garza MD STUDY: CTA CHEST REASON FOR EXAM: Female, 42 years old. Back pain and cough. RADIATION DOSAGE (If Supplied By Facility): CTDIvol = ( 13.18 ) mGy, DLP = ( 596.48 ) mGycm TECHNIQUE: The examination was performed with the intravenous administration of 100 ml of Isovue 300 contrast material. Post-processing of the angiographic images was performed, with multiplanar reformation and 3D reconstruction. Individualized dose optimization techniques were used for this CT. COMPARISON: Portable chest radiograph of May 29, 2018 FINDINGS: Normal enhancement of the main pulmonary artery and right and left pulmonary arteries. Normal enhancement of the bilateral peripheral pulmonary arteries. There is no demonstrated pulmonary embolism. Normal thoracic aorta and visualized great vessels. There is no demonstrated aortic dissection. Normal heart and pericardium. Shotty subcentimeter lymph nodes of the middle mediastinum and aortopulmonary window. Shotty left hilar lymph nodes. Consolidation in the posterior left lower lobe. 11 mm noncalcified nodule of the lingula which is pleural- based and has an air filled center, possibly a calcified nodule. Mild posterior atelectatic change and small nodular type infiltrates in the lateral right lower lobe. 4 mm noncalcified noncavitating nodule of the right lower lobe, image 88 series 2. Negative for pleural effusion. Normal chest wall structures. There are degenerative changes of thoracic spine. Normal visualized upper abdomen. CT/CTA Chest W/WO Contrast IMPRESSION: Negative for pulmonary embolus. Normal thoracic aorta. Negative for coronary calcifications. Shotty lymph nodes of the middle mediastinum, aortopulmonary window and left hilum. Broad area of consolidation in the posterior left lower lobe with minor volume loss. Negative for pleural effusion. 11 mm noncalcified nodule of the lingula with a central lucency suspicious for cavitation. 4 mm noncalcified noncavitating nodule of the right lower lobe. Small areas of atelectasis and/or small confluent infiltrate in the right lower lobe. Generalized atelectatic posterior changes of the right lung. Electronically Signed: Josie Conte MD at 21:44 EST , Service support , CC: Laron Hadley MD; Giovanna Garza MD Icu Registered Nurse: Signed LIPID PROFILE Collected: 04/02/2018 Status: F Source: PERRY 9:05 AM [facility] REPOSITORY TYPE CODE TESTS RESULT OUT OF RANGE REFERENCE UNITS LAB L501.4900 200 mg/dL Normal CHOL 164 Result Comment: <200 mg/dL Desirable 200-240 mg/dL Borderline >240 mg/dL High Risk LAB L501.5000 mg/dL Normal TRIG 101 Result Comment: The drugs N-Acetylcysteine and Metamizole may falsely depress this assay. Serum Triglycerides Reference Interval Normal <150 mg/dL Borderline high 150 - 199 mg/dL High 200 - 499 mg/dL Very High > or = 500 mg/dL LAB L501.6400 mg/dL Normal HDL 52 Result Comment: The drugs N-Acetylcysteine and Metamizole may falsely depress this assay. Reference Range HDL <40 mg/dL Low HDL Cholesterol HDL >or= 60 mg/dL High HDL Cholesterol LAB L501.6500 0-130 mg/dL Normal LDL 92 LAB L501.6600 5-40 mg/dL Normal VLDL 20 Performed By: #### L500.4100, L501.0100 #### [facility] [address] [place], [address] GLUCOSE Collected: 04/02/2018 Status: F Source: PERRY 9:05 AM [facility] REPOSITORY TYPE CODE TESTS RESULT OUT OF RANGE REFERENCE UNITS LAB L501.0100 74-106 mg/dL Normal GLU 86 Result Comment: Please note revised GLUCOSE reference range effective 2017. Performed By: #### L500.4100, L501.0100 #### [facility] [address] [place], [address] VENOUS DUPLEX LOWER Observed: 02/22/2018 Status: F Source: PERRY EXTREMITY 6:03 PM [facility] REPOSITORY [facility] Cardiovascular Services [address] [facility] [place] [address] Venous Duplex US, Unilateral 02/22/18 0933 MR#: [id number] Acct: [id number] Name: KACIE CACERES Rep #: [id number] : 1975 42 From: Garrett Mitchell MD Attending Dr: Status: DEP ER Ordering Dr: Mick Whalen MD Date: 02/22/18 Location: ED Sex: F C Admitted: Reason For Study: LEG SWELLING Procedure LEFT Exam performed portable in ED. GSV is normal. A preliminary report was called and/or faxed CFV is compressible, spontaneous, phasic, to Dr. Whalen. competent, and demonstrates normal augmentation. FV is compressible, spontaneous, phasic, competent and demonstrates normal augmentation. POP V is compressible, spontaneous, phasic, competent and demonstrates normal augmentation. T/P Trunk is compressible. PTV is compressible. LT PerV is compressible. Interpretation Summary Deep veins of the left lower extremity are patent and compressible segmentally. There is no evidence of left lower extremity deep vein thrombosis. Valvular competence appears intact within the proximal deep venous system on the left . The left greater saphenous vein appears patent and compressible segmentally. Ordering Physician: Mick Whalen Performed By: Katherine Bernstein RVT 02/22/181801 Date Garrett Mitchell MD CC: Laron Hadley MD; Mick Whalen MD Date Dictated: 02/22/18932 Date Transcribed: 02/22/181801 Icu Registered Nurse: Signed PROGRESS Observed: 02/22/2018 Status: COMPLETED Source: [place] 11:48 AM [facility] REPOSITORY O ID: [id number] Author: Pam Herrera Service: (none) Author Type: Nurse Practitioner Type: Progress Notes Filed: 02/22/2018 11:55 AM Note Text: Subjective Laceration pt presents with c/o concern for skin infection to right smith. States fell on stairs injuring her right smith. Had laceration that probably needed stiches but did not seek evaluation. Seemed to be healing well until several days ago. Area opened back up and now has thick yellowish drainage. Leg still painful with walking and foot is swollen. Also has a painful lump on left calf. No hx DVT, PE. Review of Systems Constitutional: Negative for chills and fever. Respiratory: Negative. Musculoskeletal: Positive for falls, joint pain and myalgias. Objective Physical Exam Constitutional: She is oriented to person, place, and time and well-developed, well-nourished, and in no distress. No distress. Musculoskeletal: Left lower leg: She exhibits tenderness and swelling. She exhibits no bony tenderness, no edema, no deformity and no laceration. Legs: Tender mass to left calf. No erythema or heat. Cap refill 2 sec. Pedal pulses 2+ Wound to right smith, open, pink wound bed, white and yellowish exudate. Mild erythema to surrounding tissue. Bony tenderness to mid/lower tibia and fibula. Generalized edema to right foot. Cap refill 2 sec. Pedal pulses 2+ Neurological: She is alert and oriented to person, place, and time. Skin: Skin is warm and dry. She is not diaphoretic. BP 138/88 Pulse 76 Temp 37 ?C (98.6 ?F) (Tympanic) Resp 16 Wt 92.5 kg (204 lb) BMI 37.54 kg/m? .Patient presents with: Laceration: right smith, fell down porch steps x 3 weeks PAST MEDICAL HISTORY Diagnosis Date - Abnormal mammogram of right breast 2015 s/p biopsy, normal - Abnormal Pap smear of cervix 2011 leep neg 2011 - Acid reflux - Anxiety - Depression - History of pre-eclampsia s/p tubal ligation - Obesity (BMI 30.0-34.9) - Snoring PAST SURGICAL HISTORY Procedure Laterality Date - BREAST BIOPSY W/ULTRASOUND GUIDANCE Right 03/09/16 U/S needle core 2 Oclock right breast - SECTION HX 04/08/2015 - EGD W/O OR W/BRUSH/WASH 07/09/2017 EGD - L'SCOPE DX W/WO BRUSHINGS/WASHINGS 1996 Laparoscopy - OFFICE LEEP 07/2011 negative - PCHG C SECTION DELIVERY 2009, 2014 x2 - TUBAL LIGATION HX 04/08/2015 ALLERGIES Sulfa (Sulfonamide Antibiotics) MEDICATIONS omeprazole (PRILOSEC) 20 mg capsule TAKE 1 CAPSULE DAILY 30 MINUTES BEFORE BREAKFAST LORazepam (ATIVAN) 0.5 mg tab Take 1 tablet by mouth three times daily as needed (anxiety) for up to 180 days. FAMILY HISTORY Problem Relation Age of Onset - Diabetes Mother - Hypertension Father - other (Anxiety and Depression) Sister - Stroke Maternal Grandfather - Asthma Son Social History Substance Use Topics - Smoking status: Current Every Day Smoker Packs/day: 0.50 Types: Cigarettes Last attempt to quit: 06/17/2010 - Smokeless tobacco: Never Used Comment: 3 cigs per day (04/30/17) - Alcohol use Yes Comment: Occasionally ASSESSMENT/PLAN: 1. Pain of left calf - ICD9: 729.5, ICD10: M79.662 (primary diagnosis) 2. Right leg pain - ICD9: 729.5, ICD10: M79.604 Referred to ED for r/o DVT. Pam Herrera APRN.CONDITIONING COACH DISCHARGE INSTRUCTION Observed: 02/22/2018 Status: F Source: [place] 10:01 AM [facility] Medical Records Department [address] [place] [address] Discharge Instruction 02/22/1859 MR#: [id number] Acct: [id number] Name: NICKIKACIE Rep #: [id number] : 1975 42 From: Mick Whalen MD PCP: Laron Hadley MD Status: REG ER ED Disposition - Plan for ED Patient: Disposition: Home or Assisted Living Chief Complaint: Lower Extremity Injury Instructions: ED Wound Care Prescriptions: Cephalexin [Keflex] 500 mg PO Q6 #28 cap Referrals: Laron Hadley MD [Primary Care Provider] - What to do if you have Problems For any increased pain, shortness of breath, bleeding, nausea or vomiting, chest pain, or any unexpected problems, contact your Primary Care Provider. Call [facility] ([phone]) or report to the closest Emergency Room. Call 911 if necessary. 02/22/18 1001 <Electronically signed by Mick Whalen MD> Date Mick Whalen MD Cosigner Signature (If Indicated): Date CC: Laron Hadley MD EMERGENCY DEPARTMENT Observed: 02/22/2018 Status: F Source: PERRY SUMMARY 9:59 AM [facility] Medical Records Department [address] [place] [address] Emergency Department Summary 02/22/1815 MR#: [id number] Acct: [id number] Name: NICKIKACIE Cj Rep #: [id number] : 1975 42 From: Mick Whalen MD PCP: Laron Hadley MD Status: REG ER - ER Visit Summary Date of Service: 02/22/18 Chief Complaint: Left calf pain, right anterior tibial pain History of Present Illness: The patient is a 42 F who presents with the above symptoms here she fell on her wooden deck steps 3 weeks ago. She has had a wound on the right anterior tibial area. Is now draining with some yellow fluid. She still has diffuse tenderness from the knee down to the ankle. She had ecchymosis which has improved. She has pain in the left calf area. She noticed a knot in that area this morning. She went to an urgent care and they sent her here for ultrasound. She has been using topical antibiotic cream on the wound on the right leg. Physical Examination: Right leg exam reveals diffuse tenderness in the tibial area. She has a wound on the right anterior tibial area. There is drainage noted. The left calf is tender to palpation. There are no palpable cords. No erythema. She has full range of motion of each extremity. Pulses in her feet are 2+ and equal Test Results: Ultrasound of the left leg and x-ray of the right tib-fib is negative Emergency Department Course and Treatment: Imaging studies are all negative. The patient does have this wound that looks like it slightly infected. Patient will be given Keflex for this. She will follow-up with her primary care physician and use NSAIDs for pain Treatment Plan: [] Disposition: Discharge Impression: Wound infection, left calf pain This note was generated with [employer] dictation software. It may contain incorrect words, spelling, and punctuation that were not noted in review of the chart prior to signing ED Disposition - Plan for ED Patient: Chief Complaint: Lower Extremity Injury Referrals: Laron Hadley MD [Primary Care Provider] - What to do if you have Problems For any increased pain, shortness of breath, bleeding, nausea or vomiting, chest pain, or any unexpected problems, contact your Primary Care Provider. Call [facility] ([phone]) or report to the closest Emergency Room. Call 911 if necessary. 02/22/18 0959 <Electronically signed by Mick Whalen MD> Date Mick Whalen MD Cosigner Signature (If Indicated): Date CC: Laron Hadley MD TIBIA AND FIBULA Observed: 02/22/2018 Status: F Source: PERRY 2 VIEWS 9:14 AM [facility] REPOSITORY [facility] Imaging Services [address] [place] [address] Tibia AND Fibula 2 Views MR#: [id number] Acct: [id number] Name: NICKISeptember Rep #: [id number] : 1975 F 42 From: Ugo Aranda DO PCP: Laron Hadley MD Status: DEP ER Study: Tibia AND Fibula 2 Views Date of Exam: 02/22/18 Exam# [id number] Ordering Dr: Mick Whalen MD STUDY: X-RAY - RIGHT TIBIA AND FIBULA REASON FOR EXAM: Female, 42 years old. Trauma, injury 3 weeks ago TECHNIQUE: 2 view(s) of the tibia and fibula were obtained. COMPARISON: None. FINDINGS: Normal visualized tibia. Normal visualized fibula. There is no demonstrated acute fracture. The soft tissue structures are unremarkable. RAD/Tibia AND Fibula 2 Views IMPRESSION: Normal x-ray examination of the tibia and fibula. Electronically Signed: Ugo Aranda DO at 10:43 EDT Tel , Service support , CC: Laron Hadley MD; Mick Whalen MD Icu Registered Nurse: Signed CNOV Observed: 02/22/2018 Status: COMPLETED Source: [place] 8:30 AM [facility] REPOSITORY Office Visit (WSTR) KACIE CACERES ([id number]) 1975 F Date Time Provider Department 02/22/18 8:30 AM PAM [address]A [facility] During your visit today, we recorded the following information about you: Temperature Pulse Respiration Blood pressure 98.6 degrees 76/minute 16/minute 138/88 Weight 92.5 kg Pam Herrera APRN.CONDITIONING COACH 02/22/2018 11:55 AM Signed Subjective Laceration pt presents with c/o concern for skin infection to right smith. States fell on stairs injuring her right smith. Had laceration that probably needed stiches but did not seek evaluation. Seemed to be healing well until several days ago. Area opened back up and now has thick yellowish drainage. Leg still painful with walking and foot is swollen. Also has a painful lump on left calf. No hx DVT, PE. Review of Systems Constitutional: Negative for chills and fever. Respiratory: Negative. Musculoskeletal: Positive for falls, joint pain and myalgias. Objective Physical Exam Constitutional: She is oriented to person, place, and time and well-developed, well-nourished, and in no distress. No distress. Musculoskeletal: Left lower leg: She exhibits tenderness and swelling. She exhibits no bony tenderness, no edema, no deformity and no laceration. Legs: Tender mass to left calf. No erythema or heat. Cap refill 2 sec. Pedal pulses 2+ Wound to right smith, open, pink wound bed, white and yellowish exudate. Mild erythema to surrounding tissue. Bony tenderness to mid/lower tibia and fibula. Generalized edema to right foot. Cap refill 2 sec. Pedal pulses 2+ Neurological: She is alert and oriented to person, place, and time. Skin: Skin is warm and dry. She is not diaphoretic. BP 138/88 Pulse 76 Temp 37 ?C (98.6 ?F) (Tympanic) Resp 16 Wt 92.5 kg (204 lb) BMI 37.54 kg/m? .Patient presents with: Laceration: right smith, fell down porch steps x 3 weeks PAST MEDICAL HISTORY Diagnosis Date - Abnormal mammogram of right breast 2015 s/p biopsy, normal - Abnormal Pap smear of cervix 2011 leep neg 2011 - Acid reflux - Anxiety - Depression - History of pre-eclampsia s/p tubal ligation - Obesity (BMI 30.0-34.9) - Snoring PAST SURGICAL HISTORY Procedure Laterality Date - BREAST BIOPSY W/ULTRASOUND GUIDANCE Right 03/09/16 U/S needle core 2 Oclock right breast - SECTION HX 04/08/2015 - EGD W/O OR W/BRUSH/WASH 07/09/2017 EGD - L'SCOPE DX W/WO BRUSHINGS/WASHINGS 1996 Laparoscopy - OFFICE LEEP 07/2011 negative - [facility] C SECTION DELIVERY 2009, 2014 x2 - TUBAL LIGATION HX 04/08/2015 ALLERGIES Sulfa (Sulfonamide Antibiotics) MEDICATIONS omeprazole (PRILOSEC) 20 mg capsule TAKE 1 CAPSULE DAILY 30 MINUTES BEFORE BREAKFAST LORazepam (ATIVAN) 0.5 mg tab Take 1 tablet by mouth three times daily as needed (anxiety) for up to 180 days. FAMILY HISTORY Problem Relation Age of Onset - Diabetes Mother - Hypertension Father - other (Anxiety and Depression) Sister - Stroke Maternal Grandfather - Asthma Son Social History Substance Use Topics - Smoking status: Current Every Day Smoker Packs/day: 0.50 Types: Cigarettes Last attempt to quit: 06/17/2010 - Smokeless tobacco: Never Used Comment: 3 cigs per day (04/30/17) - Alcohol use Yes Comment: Occasionally ASSESSMENT/PLAN: 1. Pain of left calf - ICD9: 729.5, ICD10: M79.662 (primary diagnosis) 2. Right leg pain - ICD9: 729.5, ICD10: M79.604 Referred to ED for r/o DVT. Pam Herrera, EQUITY DIRECTOR.CONDITIONING COACH Referring Provider: SELF [[id number]] Allergies As of Date: 02/22/2018 Noted Allergy Reaction SULFA (SULFONAMIDE ANTIBIOTICS) 11/17/2005 8 - GI Upset Date Reviewed: 02/22/2018 Reviewed by: Tati Peralta Ma - Fully Assessed Reason for Visit: Laceration [1747] Cmt: right smith, fell down porch steps x 3 weeks Reason For Visit History Recorded Primary Visit Diagnosis:Pain of left calf [M79.662] Other Visit Diagnosis:Right leg pain [M79.604] Prescriptions as of 02/22/2018 Sig: OMEPRAZOLE 20 MG CAPSULE,RAMILA* TAKE 1 CAPSULE DAILY 30 MINUT* LORAZEPAM 0.5 MG TABLET Take 1 tablet by mouth three * Problem List As Of Date 02/22/2018 Noted Resolved AMA (advanced maternal age) multigravida 35+ [O*INVALID FOR* Abnormal mammogram [R92.8] INVALID FOR* Acid reflux [K21.9] Obesity (BMI 30.0-34.9) [E66.9] GERD without esophagitis [K21.9] INVALID FOR* More... Letter Text Kacie Caceres Pam Herrera APRN.[facility] Ur[facility] Care [address] [id number] Dept: [phone] Date this form was last completed: February 22, 2018 Reason for Emergency Transport: Left calf pain, swelling. Needs r/o DVT. RLE pain s/p trauma. Wound to Right smith. Name: Kacie Caceres [facility] Number : [id number] Age: [age] year old : 1975 [address]: [address] [place], [place] [id number] (home) [phone] (work) Primary care physician: MD Effie Salomon MD [address] [place] [address] Current Vital Signs: BP 138/88 Pulse 76 Temp 37 ?C (98.6 ?F) (Tympanic) Resp 16 Wt 92.5 kg (204 lb) BMI 37.54 kg/m? Allergies: Sulfa (Sulfonamide Antibiotics) Current Medications: Current Outpatient Prescriptions: omeprazole (PRILOSEC) 20 mg capsule TAKE 1 CAPSULE DAILY 30 MINUTES BEFORE BREAKFAST LORazepam (ATIVAN) 0.5 mg tab Take 1 tablet by mouth three times daily as needed (anxiety) for up to 180 days. No current facility-administered medications for this visit. Problem List: ACTIVE PROBLEM LIST [place] (Advanced Maternal Age) Multigravida 35+ Abnormal Mammogram Acid Reflux Obesity (Bmi 30.0-34.9) Gerd Without Esophagitis Past Surgical History PAST SURGICAL HISTORY Procedure Laterality Date - BREAST BIOPSY W/ULTRASOUND GUIDANCE Right 03/09/16 U/S needle core 2 Oclock right breast - SECTION HX 04/08/2015 - EGD W/O OR W/BRUSH/WASH 07/09/2017 EGD - L'SCOPE DX W/WO BRUSHINGS/WASHINGS 1996 Laparoscopy - OFFICE LEEP 07/2011 negative - [facility] C SECTION DELIVERY 2009, 2014 x2 - TUBAL LIGATION HX 04/08/2015 Insurance information: Payor: [employer] / Plan: BLUE ACCESS PPO / Product Type: PPO / Emergency Contact: Extended Emergency Contact Information Primary Emergency Contact: Stephen Caceres Mobile Relation: Spouse Secondary Emergency Contact: Bethany Haskins Relation: Mother Encounter Status:Closed by PAM HERRERA CNP on 02/22/18 Observed: 12/27/2017 Status: F Source: [place] URINE CULTURE 10:41 AM [facility] [place] REPOSITORY Sp. Request/Comment: - Specimen received in preservative Culture Result - >=100,000 CFU/ml Escherichia coli --> ABNORMAL ALERT ORGANISM: Escherichia coli METHOD: Minimum inhibitory concentration(Vitek) Antibiotic Interp SNEHA Status Ampicillin RESISTANT >=32 F Gentamicin SUSCEPTIBLE <=1 F Trimeth sulfameth SUSCEPTIBLE <=20 F Cefazolin SUSCEPTIBLE 8 F CLSI breakpoints for therapy of uncomplicated UTI's due to E.coli, K.pneumoniae, and P.mirabilis were applied and may be used to predict the activity of oral agents(cefaclor, cefdinir, cefpodoxime, cefp rozil, cefuroxime, cephalexin, loracarbef). Ciprofloxacin SUSCEPTIBLE <=0.25 F Nitrofurantoin SUSCEPTIBLE <=16 F Cefepime SUSCEPTIBLE <=1 F Piperacillin/Tazobac SUSCEPTIBLE <=4 F Ampicillin Sulbact RESISTANT >=32 F Ceftriaxone SUSCEPTIBLE <=1 F Meropenem SUSCEPTIBLE <=0.25 F Ertapenem SUSCEPTIBLE <=0.5 F Performed By: #### URCUL #### [facility] [address] [place], [place] [address] PROGRESS Observed: 12/27/2017 Status: COMPLETED Source: [place] 10:36 AM [facility] REPOSITORY HNO ID: [id number] Author: Elsa Villagran Service: (none) Author Type: Nurse Practitioner Type: Progress Notes Filed: 12/27/2017 11:24 AM Note Text: Subjective The history is provided by the patient. No manager language was used. HPI Kacie Caceres is a 42 year old female who presents today for CC of burning urgency or frequency. This started yesterday, she is also having some lower abdominal pain. Symptoms are worsened by voiding. She has tried no medications or treatment. Risk factors sexually active. PMH not significant. BP 110/82 Pulse 74 Temp 36.9 ?C (98.5 ?F) (Tympanic) Resp 16 Wt 93 kg (205 lb) LMP 12/18/2017 BMI 37.72 kg/m? ALLERGIES Allergen Reactions - Sulfa (Sulfonamide * GI Upset ACTIVE PROBLEM LIST [place] (Advanced Maternal Age) Multigravida 35+ Abnormal Mammogram Acid Reflux Obesity (Bmi 30.0-34.9) Gerd Without Esophagitis Family History Problem Relation Age of Onset - Diabetes Mother - Hypertension Father - Anxiety and Depression [OTHER] Sister - Stroke Maternal Grandfather - Asthma Son Social History Marital status: Spouse name: Years of education: 14 Number of children: 2 Occupational History Occupation Employer Comment [employer] Social History Main Topics Smoking status: Current Every Day Smoker Packs/day: 0.50 Years: 0.00 Types: Cigarettes Last attempt to quit: 06/17/2010 Smokeless tobacco: Never Used Comment: 3 cigs per day (04/30/17) Alcohol use: Yes Comment: Occasionally Drug use: No Sexual activity: Yes Partners with: Male control/protection: Tubal Ligation Review of Systems Constitutional: Negative for chills, fever and malaise/fatigue. Genitourinary: Negative for dysuria, flank pain, frequency, hematuria and urgency. Skin: Negative for rash. Neurological: Negative for headaches. Objective Physical Exam Constitutional: She is oriented to person, place, and time and well-developed, well-nourished, and in no distress. HENT: Head: Normocephalic and atraumatic. Eyes: Conjunctivae and EOM are normal. Pupils are equal, round, and reactive to light. Neck: Normal range of motion. Neck supple. Pulmonary/Chest: Effort normal. Abdominal: Soft. Normal appearance and bowel sounds are normal. She exhibits no abdominal bruit, no pulsatile midline mass and no mass. There is no hepatosplenomegaly. There is generalized tenderness and tenderness in the suprapubic area. There is no rigidity, no rebound, no guarding and no CVA tenderness. Neurological: She is alert and oriented to person, place, and time. Skin: Skin is warm. Psychiatric: Affect normal. Nursing note and vitals reviewed. Component Latest Ref Rng AND Units 12/27/2017 Glucose, Urine Neg mg/dL neg Bilirubin, Urine Neg neg Ketones, Urine Neg neg Specific [place], Ur 1.005 - 1.030 1.005 (A) Hemoglobin/Blood,Ur Neg large pH, Urine 4.5 - 8.0 7.0 Protein, Urine Neg mg/dL neg Urobilinogen, Urine Normal (<1.1) EU 0.2 Nitrites Neg neg Leukocytes Neg small Color/Appearance comment: yellow / clear Quality Check yes/no Yes ASSESSMENT/PLAN: 1. Acute UTI - ICD9: 599.0, ICD10: N39.0 (primary diagnosis) acute - UA positive for cary esterase and hematuria - Send urine for culture - Begin treatment with Macrobid 100 mg BID for 7 days - Patient education for prevention given - URINE CULTURE - NITROFURANTOIN MONOHYDRATE AND MACROCRYSTAL 100 MG ORAL CAP 2. Urinary urgency - ICD9: 788.63, ICD10: R39.15 Urinary tract infection (UTI) We will send the urine for culture, which shows us what organism, if any, we are treating. If we need to change the antibiotic coverage, you will receive a call in 48-72 hours. * Seek medical care immediately, call 911, or go to ER if you have high fevers, severe flank or low back pain, blood in your urine. * Follow up with primary care provider if symptoms persist or worsen. - UA DIP B/O - URINE CULTURE Diagnosis and treatment plan were discussed and questions were answered to the patient's satisfaction. Pt acknowledged understanding of concepts and follow up plan. Specific signs and symptoms that would indicate the need for higher level of care were discussed in detail warranting prompt ER evaluation. Elsa Villagran APRN.CONDITIONING COACH CNOV Observed: 12/27/2017 Status: COMPLETED Source: [place] 10:30 AM [facility] REPOSITORY Office Visit (WSTR) KACIE CACERES ([id number]) 1975 F Date Time Provider Department 12/27/17 10:30 AM ELSA VILLAGRAN (CONDITIONING COACH) [facility] During your visit today, we recorded the following information about you: Temperature Pulse Respiration Blood pressure 98.5 degrees 74/minute 16/minute 110/82 Weight Last Period 93 kg 12/18/17 Elsa Villagran APRN.CNP 12/27/2017 11:24 AM Signed Subjective The history is provided by the patient. No manager language was used. HPI Kacie Caceres is a 42 year old female who presents today for CC of burning urgency or frequency. This started yesterday, she is also having some lower abdominal pain. Symptoms are worsened by voiding. She has tried no medications or treatment. Risk factors sexually active. PMH not significant. BP 110/82 Pulse 74 Temp 36.9 ?C (98.5 ?F) (Tympanic) Resp 16 Wt 93 kg (205 lb) LMP 12/18/2017 BMI 37.72 kg/m? ALLERGIES Allergen Reactions - Sulfa (Sulfonamide * GI Upset ACTIVE PROBLEM LIST [place] (Advanced Maternal Age) Multigravida 35+ Abnormal Mammogram Acid Reflux Obesity (Bmi 30.0-34.9) Gerd Without Esophagitis Family History Problem Relation Age of Onset - Diabetes Mother - Hypertension Father - Anxiety and Depression [OTHER] Sister - Stroke Maternal Grandfather - Asthma Son Social History Marital status: Spouse name: Years of education: 14 Number of children: 2 Occupational History Occupation Employer Comment [employer] Social History Main Topics Smoking status: Current Every Day Smoker Packs/day: 0.50 Years: 0.00 Types: Cigarettes Last attempt to quit: 06/17/2010 Smokeless tobacco: Never Used Comment: 3 cigs per day (04/30/17) Alcohol use: Yes Comment: Occasionally Drug use: No Sexual activity: Yes Partners with: Male control/protection: Tubal Ligation Review of Systems Constitutional: Negative for chills, fever and malaise/fatigue. Genitourinary: Negative for dysuria, flank pain, frequency, hematuria and urgency. Skin: Negative for rash. Neurological: Negative for headaches. Objective Physical Exam Constitutional: She is oriented to person, place, and time and well-developed, well-nourished, and in no distress. HENT: Head: Normocephalic and atraumatic. Eyes: Conjunctivae and EOM are normal. Pupils are equal, round, and reactive to light. Neck: Normal range of motion. Neck supple. Pulmonary/Chest: Effort normal. Abdominal: Soft. Normal appearance and bowel sounds are normal. She exhibits no abdominal bruit, no pulsatile midline mass and no mass. There is no hepatosplenomegaly. There is generalized tenderness and tenderness in the suprapubic area. There is no rigidity, no rebound, no guarding and no CVA tenderness. Neurological: She is alert and oriented to person, place, and time. Skin: Skin is warm. Psychiatric: Affect normal. Nursing note and vitals reviewed. Component Latest Ref Rng AND Units 12/27/2017 Glucose, Urine Neg mg/dL neg Bilirubin, Urine Neg neg Ketones, Urine Neg neg Specific [place], Ur 1.005 - 1.030 1.005 (A) Hemoglobin/Blood,Ur Neg large pH, Urine 4.5 - 8.0 7.0 Protein, Urine Neg mg/dL neg Urobilinogen, Urine Normal (<1.1) EU 0.2 Nitrites Neg neg Leukocytes Neg small Color/Appearance comment: yellow / clear Quality Check yes/no Yes ASSESSMENT/PLAN: 1. Acute UTI - ICD9: 599.0, ICD10: N39.0 (primary diagnosis) acute - UA positive for cary esterase and hematuria - Send urine for culture - Begin treatment with Macrobid 100 mg BID for 7 days - Patient education for prevention given - URINE CULTURE - NITROFURANTOIN MONOHYDRATE AND MACROCRYSTAL 100 MG ORAL CAP 2. Urinary urgency - ICD9: 788.63, ICD10: R39.15 Urinary tract infection (UTI) We will send the urine for culture, which shows us what organism, if any, we are treating. If we need to change the antibiotic coverage, you will receive a call in 48-72 hours. * Seek medical care immediately, call 911, or go to ER if you have high fevers, severe flank or low back pain, blood in your urine. * Follow up with primary care provider if symptoms persist or worsen. - UA DIP B/O - URINE CULTURE Diagnosis and treatment plan were discussed and questions were answered to the patient's satisfaction. Pt acknowledged understanding of concepts and follow up plan. Specific signs and symptoms that would indicate the need for higher level of care were discussed in detail warranting prompt ER evaluation. RAIN Shirley APRN.CNP 12/27/2017 10:42 AM Signed ASSESSMENT/PLAN: 1. Acute UTI - ICD9: 599.0, ICD10: N39.0 (primary diagnosis) acute - UA positive for cary esterase and hematuria - Send urine for culture - Begin treatment with Macrobid 100 mg BID for 7 days - Patient education for prevention given - URINE CULTURE - NITROFURANTOIN MONOHYDRATE AND MACROCRYSTAL 100 MG ORAL CAP 2. Urinary urgency - ICD9: 788.63, ICD10: R39.15 Urinary tract infection (UTI) We will send the urine for culture, which shows us what organism, if any, we are treating. If we need to change the antibiotic coverage, you will receive a call in 48-72 hours. * Seek medical care immediately, call 911, or go to ER if you have high fevers, severe flank or low back pain, blood in your urine. * Follow up with primary care provider if symptoms persist or worsen. - UA DIP B/O - URINE CULTURE Referring Provider: SELF [200] Allergies As of Date: 12/27/2017 Noted Allergy Reaction SULFA (SULFONAMIDE ANTIBIOTICS) 11/17/2005 8 - GI Upset Date Reviewed: 12/27/2017 Reviewed by: Elsa (Aneudy) Nicholas - Fully Assessed Reason for Visit: Urinary Urgency [2827] Cmt: burning with urination x 5 days Primary Visit Diagnosis:Acute UTI [N39.0] Other Visit Diagnosis:Urinary urgency [R39.15] Order(s):UA DIP B/O [[id number]] Order #: [id number] URINE CULTURE [SQURCUL] Order #: [id number] nitrofurantoin monohydrate and macrocrystal (MACROBID) 100 mg capsuleTake 1 capsule by mouth twice daily with meals for 7 days.Disp: 14 capsuleRfl: 0 Prescriptions as of 12/27/2017 Sig: OMEPRAZOLE 20 MG CAPSULE,RAMILA* TAKE 1 CAPSULE DAILY 30 MINUT* LORAZEPAM 0.5 MG TABLET Take 1 tablet by mouth three * NITROFURANTOIN MONOHYDRATE AND * Take 1 capsule by mouth twice* Problem List As Of Date 12/27/2017 Noted Resolved AMA (advanced maternal age) multigravida 35+ [O*INVALID FOR* Abnormal mammogram [R92.8] INVALID FOR* Acid reflux [K21.9] Obesity (BMI 30.0-34.9) [E66.9] GERD without esophagitis [K21.9] INVALID FOR* More... Other instructions from your clinician: ASSESSMENT/PLAN: 1. Acute UTI - ICD9: 599.0, ICD10: N39.0 (primary diagnosis) acute - UA positive for cary esterase and hematuria - Send urine for culture - Begin treatment with Macrobid 100 mg BID for 7 days - Patient education for prevention given - URINE CULTURE - NITROFURANTOIN MONOHYDRATE AND MACROCRYSTAL 100 MG ORAL CAP 2. Urinary urgency - ICD9: 788.63, ICD10: R39.15 Urinary tract infection (UTI) We will send the urine for culture, which shows us what organism, if any, we are treating. If we need to change the antibiotic coverage, you will receive a call in 48-72 hours. * Seek medical care immediately, call 911, or go to ER if you have high fevers, severe flank or low back pain, blood in your urine. * Follow up with primary care provider if symptoms persist or worsen. - UA DIP B/O - URINE CULTURE Prescriptions ordered this encounter Disp Refills Start End NITROFURANTOIN MONOHYDRATE AND MACROCR* 14 c* 0 12/27/2017 01/03/2018 Route: ORAL Sig: Take 1 capsule by mouth twice daily with meals for 7 days. Encounter Status:Closed by ELSA VILLAGRAN CNP on 12/27/17 PROGRESS Observed: 09/18/2017 Status: COMPLETED Source: [place] 11:02 AM [facility] REPOSITORY HNO ID: [id number] Author: Sahara (Photovoltaic Installation Technician) Older Service: (none) Author Type: Nurse Practitioner Type: Progress Notes Filed: 09/18/2017 11:21 AM Note Text: CC: Patient presents with: prescription for upcoming flight HPI Kacie Caceres is a 42 year old female who presents today for refill on Prilosec, Ativan for anxiety with flying and rash. GERD: Takes Prilosec daily, doing well on medication. Denies heartburn/reflux symptoms. No dysphagia, weight loss, odynophagia, black/bloody stools or abdominal pain. Anxiety: Has fear of flying, gets very anxious. Requesting Ativan 0.5 mg to take prior to flying. Has used before and works really well. Rash: Located under right breast. Not itchy or painful. Treating with Lamisil x 3 days, no improvement. Daughter recently diagnosed with ringworm. REVIEW OF SYSTEMS See HPI PAST MEDICAL HISTORY Diagnosis Date - Abnormal mammogram of right breast 2015 s/p biopsy, normal - Abnormal Pap smear of cervix 2011 leep neg 2011 - Acid reflux - Anxiety - Depression - History of pre-eclampsia s/p tubal ligation - Obesity (BMI 30.0-34.9) - Snoring PAST SURGICAL HISTORY Procedure Laterality Date - BREAST BIOPSY W/ULTRASOUND GUIDANCE Right 03/09/16 U/S needle core 2 Oclock right breast - SECTION HX 04/08/2015 - EGD W/O OR W/BRUSH/WASH 07/09/2017 EGD - L'SCOPE DX W/WO BRUSHINGS/WASHINGS 1996 Laparoscopy - OFFICE LEEP 07/2011 negative - [facility] C SECTION DELIVERY 2014 x2 - TUBAL LIGATION HX 04/08/2015 ALLERGIES Sulfa (Sulfonamide Antibiotics) MEDICATIONS omeprazole (PRILOSEC) 20 mg capsule TAKE 1 CAPSULE DAILY 30 MINUTES BEFORE BREAKFAST FAMILY HISTORY Problem Relation Age of Onset - Diabetes Mother - Hypertension Father - Anxiety and Depression [OTHER] Sister - Stroke Maternal Grandfather - Asthma Son Social History Substance Use Topics - Smoking status: Current Every Day Smoker Packs/day: 0.50 Types: Cigarettes Last attempt to quit: 06/17/2010 - Smokeless tobacco: Never Used Comment: 3 cigs per day (04/30/17) - Alcohol use Yes Comment: Occasionally PHYSICAL EXAM BP 120/88 Pulse 74 Temp (!) 35.9 ?C (96.7 ?F) (Temporal Artery) Resp 16 Wt 89.4 kg (197 lb) SpO2 98% BMI 36.25 kg/m2 General Appearance: well appearing, in no acute distress, alert Pysch: mood and affect broad and appropriate Skin: Annular shaped lesion with scaling and central clearing under right breast ASSESSMENT/PLAN: 1. Situational anxiety - ICD9: 300.09, ICD10: F41.8 (primary diagnosis) Given 4 tabs of Ativan [employer] website checked and validated. All prescriptions have been APPROPRIATELY filled. No suspicious activity was identified.- 09/18/2017 by Sahara Lynch APRN.CNP - LORAZEPAM 0.5 MG TABLET 2. GERD without esophagitis - ICD9: 530.81, ICD10: K21.9 - Continue treatment with Prilosec 20 mg QD 3. Tinea corporis - ICD9: 110.5, ICD10: B35.4 - Continue treatment with Lamisil twice a day until rash resolves and then another week, patient advised can take a couple weeks for rash to resolve - Keep area of concern very dry. Ok to use OTC antifungal powder if area is moist - Follow-up in two weeks if no improvement Prescription instructions reviewed with patient as applicable. Potential red flag symptoms discussed with the patient. Reviewed appropriate action plan to take if red flag symptoms occur. Patient agreeable to treatment plan. Sahara Lynch APRN.CNP CNOV Observed: 09/18/2017 Status: COMPLETED Source: [place] 10:40 AM [facility] REPOSITORY Office Visit (INTMWS) KACIE CACERES ([id number]) 1975 F Date Time Provider Department 09/18/17 10:40 AM SAHARA LYNCH) [facility] During your visit today, we recorded the following information about you: Temperature Pulse Respiration Blood pressure 96.7 degrees 74/minute 16/minute 120/88 Weight 89.4 kg Sahara Lynch APRN.CNP 09/18/2017 11:21 AM Signed CC: Patient presents with: prescription for upcoming flight HPI September L Nicki is a 42 year old female who presents today for refill on Prilosec, Ativan for anxiety with flying and rash. GERD: Takes Prilosec daily, doing well on medication. Denies heartburn/reflux symptoms. No dysphagia, weight loss, odynophagia, black/bloody stools or abdominal pain. Anxiety: Has fear of flying, gets very anxious. Requesting Ativan 0.5 mg to take prior to flying. Has used before and works really well. Rash: Located under right breast. Not itchy or painful. Treating with Lamisil x 3 days, no improvement. Daughter recently diagnosed with ringworm. REVIEW OF SYSTEMS See HPI PAST MEDICAL HISTORY Diagnosis Date - Abnormal mammogram of right breast 2016 s/p biopsy, normal - Abnormal Pap smear of cervix 2011 leep neg 2011 - Acid reflux - Anxiety - Depression - History of pre-eclampsia s/p tubal ligation - Obesity (BMI 30.0-34.9) - Snoring PAST SURGICAL HISTORY Procedure Laterality Date - BREAST BIOPSY W/ULTRASOUND GUIDANCE Right 03/09/16 U/S needle core 2 Oclock right breast - SECTION HX 04/08/2015 - EGD W/O OR W/BRUSH/WASH 07/09/2017 EGD - L'SCOPE DX W/WO BRUSHINGS/WASHINGS 1996 Laparoscopy - OFFICE LEEP 07/2011 negative - [facility] C SECTION DELIVERY 2009, 2014 x2 - TUBAL LIGATION HX 04/08/2015 ALLERGIES Sulfa (Sulfonamide Antibiotics) MEDICATIONS omeprazole (PRILOSEC) 20 mg capsule TAKE 1 CAPSULE DAILY 30 MINUTES BEFORE BREAKFAST FAMILY HISTORY Problem Relation Age of Onset - Diabetes Mother - Hypertension Father - Anxiety and Depression [OTHER] Sister - Stroke Maternal Grandfather - Asthma Son Social History Substance Use Topics - Smoking status: Current Every Day Smoker Packs/day: 0.50 Types: Cigarettes Last attempt to quit: 06/17/2010 - Smokeless tobacco: Never Used Comment: 3 cigs per day (04/30/17) - Alcohol use Yes Comment: Occasionally PHYSICAL EXAM BP 120/88 Pulse 74 Temp (!) 35.9 ?C (96.7 ?F) (Temporal Artery) Resp 16 Wt 89.4 kg (197 lb) SpO2 98% BMI 36.25 kg/m2 General Appearance: well appearing, in no acute distress, alert Pysch: mood and affect broad and appropriate Skin: Annular shaped lesion with scaling and central clearing under right breast ASSESSMENT/PLAN: 1. Situational anxiety - ICD9: 300.09, ICD10: F41.8 (primary diagnosis) Given 4 tabs of Ativan OAS website checked and validated. All prescriptions have been APPROPRIATELY filled. No suspicious activity was identified.- 09/18/2017 by Sahara Lynch APRN.ANEUDY - LORAZEPAM 0.5 MG TABLET 2. GERD without esophagitis - ICD9: 530.81, ICD10: K21.9 - Continue treatment with Prilosec 20 mg QD 3. Tinea corporis - ICD9: 110.5, ICD10: B35.4 - Continue treatment with Lamisil twice a day until rash resolves and then another week, patient advised can take a couple weeks for rash to resolve - Keep area of concern very dry. Ok to use OTC antifungal powder if area is moist - Follow-up in two weeks if no improvement Prescription instructions reviewed with patient as applicable. Potential red flag symptoms discussed with the patient. Reviewed appropriate action plan to take if red flag symptoms occur. Patient agreeable to treatment plan. RAIN Robertson APRN.CNP 09/18/2017 11:07 AM Signed Use Lamisil over the counter for two weeks, call if no improvement Allergies As of Date: 09/18/2017 Noted Allergy Reaction SULFA (SULFONAMIDE ANTIBIOTICS) 11/17/2005 8 - GI Upset Date Reviewed: 09/18/2017 Reviewed by: Adela Rome Remedial Teacher - Fully Assessed Reason for Visit: prescription for upcoming flight [Other] Primary Visit Diagnosis:Situational anxiety [F41.8] Other Visit Diagnoses:GERD without esophagitis [K21.9] Tinea corporis [B35.4] Order(s):omeprazole (PRILOSEC) 20 mg capsuleTAKE 1 CAPSULE DAILY 30 MINUTES BEFORE BREAKFASTDisp: 90 capsuleRfl: 1 LORazepam (ATIVAN) 0.5 mg tabTake 1 tablet by mouth three times daily as needed (anxiety) for up to 180 days.Disp: 4 tabletRfl: 0 Prescriptions as of 09/18/2017 Sig: OMEPRAZOLE 20 MG CAPSULE,RAMILA* TAKE 1 CAPSULE DAILY 30 MINUT* LORAZEPAM 0.5 MG TABLET Take 1 tablet by mouth three * Problem List As Of Date 09/18/2017 Noted Resolved AMA (advanced maternal age) multigravida 35+ [O*INVALID FOR* Abnormal mammogram [R92.8] INVALID FOR* Acid reflux [K21.9] Obesity (BMI 30.0-34.9) [E66.9] GERD without esophagitis [K21.9] INVALID FOR* More... Other instructions from your clinician: Use Lamisil over the counter for two weeks, call if no improvement Prescriptions ordered this encounter Disp Refills Start End OMEPRAZOLE 20 MG CAPSULE,DELAYED REL* 90 c* 1 09/18/2017 Sig: TAKE 1 CAPSULE DAILY 30 MINUTES BEFORE BREAKFAST LORAZEPAM 0.5 MG TABLET 4 ta* 0 09/18/2017 03/17/2018 Class: Print RX Route: ORAL Sig: Take 1 tablet by mouth three times daily as needed (anxiety) for up to 180 days. Medications Discontinued During This Encounter omeprazole (PRILOSEC) 20 mg capsule 90 c* 0 07/23/2017 09/18/2017 Sig: TAKE 1 CAPSULE DAILY 30 MINUTES BEFORE BREAKFAST Disc: Reason for discontinue is not on file. Encounter Status:Closed by SAHARA LYNCH CNP on 09/18/17 CNCO Observed: 07/31/2017 Status: COMPLETED Source: [place] 1:17 PM [facility] REPOSITORY [facility] ID: [id number] Author: Mammography Coordinator Service: (none) Author Type: Physician Type: Letter Filed: 08/01/2017 11:31 PM Note Text: July 31, 2017 PID: [id number] Kacie Caceres [address] [place] [address] Dear Ms. Caceres, We are pleased to inform you that the results of your recent breast imaging exam on 07/31/2017 are normal. Your mammogram demonstrates that you have dense breast tissue, which could hide abnormalities. Dense breast tissue, in and of itself, is a relatively common condition. Therefore, this information is not provided to cause undue concern; rather, it is to raise your awareness and promote discussion with your health care provider regarding the presence of dense breast tissue in addition to other risk factors. Early detection of cancer is very important. We also understand recommendations regarding breast cancer screening are controversial. Please discuss with your primary care provider which strategy is best for you and whether a mammogram is right for you. Your imaging studies and report will be kept on file at [facility] as part of your permanent medical record and are available for your continuing care. Thank you for allowing us to help in meeting your health care needs. Sincerely, Dr. Paredes Interpreting Radiologist [facility] (Normal over 40) [facility] SCREENING Observed: 07/31/2017 Status: F Source: [place] 12:58 PM [facility] REPOSITORY * * *Final Report* * * DATE OF EXAM: Jul 31 2017 12:58PM WOW [id number] - [facility] SCREENING / PROCEDURE REASON: Encounter for gynecological examination (general) (routine) with abnormal findin * * * * Physician Interpretation * * * * RESULT: #[id number] - [facility] SCREENING BILATERAL DIGITAL SCREENING MAMMOGRAM WITH CAD: 07/31/2017 HISTORY: Encounter For Gynecological Examination (General) (Routine) With Abnormal Findin /Screening Mammogram - patient reports NO breast symptoms /Priors available for comparison. RESULT: TECHNIQUE: The study was acquired using full field digital technology and interpreted from soft copy. Current study was also evaluated with a Computer Aided Detection (CAD). Comparison is made to exams dated: 02/15/2016 mammogram - [facility], 02/09/2016 mammogram, 09/03/2013 mammogram - [facility], and 02/15/2016 ultrasound - [facility]. The tissue of both breasts is heterogeneously dense. This may lower the sensitivity of mammography. There is a biopsy clip in the right breast. No significant masses, calcifications, or other findings are seen in either breast. There has been no significant interval change. IMPRESSION: NEGATIVE There is no mammographic evidence of malignancy.A 1 year screening mammogram is recommended. The exam was reviewed by a staff physician. little Marinelli M.D., M.D., pt/markos:07/31/2017 13:17:38 Biomedical Equipment Support Specialist: Mesha CARIAS)(Valentino), [facility] letter sent: Normal over 40 Mammogram BI-RADS: 1 Negative Icu Registered Nurse: Markos Transcribe Date/Time: Jul 31 2017 12:39P Dictated by: ILAN ACOSTA MD This examination was interpreted and the report reviewed and electronically signed by: JOO PAREDES MD on Jul 31 2017 1:17PM EST [id number] Observed: 07/25/2017 Status: COMPLETED Source: [place] 11:20 AM [facility] REPOSITORY [facility] ID: [id number] Author: Caitlyn Painting Service: (none) Author Type: Cap Blocker Type: Progress Notes Filed: 07/25/2017 3:56 PM Note Text: Kacie Caceres is a 41 year old who presents for her annual gynecologic exam without complaints. Menses: cycles every 26 days and 5 days of flow. Contraception: tubal ligation HPV vaccine: No Last Pap: 2014 normal HPV: negative History of abnormal pap: Yes Last mammogram: 2015 abnormal. Right breast mass. Biopsy and normal. No follow up since. Sexually active: Yes Time with current partner: 14 years Pain with intercourse: No Postcoital bleeding: No Hot flashes: No Night sweats: No Vaginal dryness: No Mood swings: No Insomnia: No Exercise: none Obstetric History T2 L2 SAB1 TAB0 Ectopic0 Multiple0 Live Births2 PAST MEDICAL HISTORY Diagnosis Date - Abnormal mammogram of right breast 2015 s/p biopsy, normal - Abnormal Pap smear of cervix 2011 leep neg 2011 - Acid reflux - Anxiety - Depression - History of pre-eclampsia s/p tubal ligation - Obesity (BMI 30.0-34.9) - Snoring PAST SURGICAL HISTORY Procedure Laterality Date - BREAST BIOPSY W/ULTRASOUND GUIDANCE Right 03/09/16 U/S needle core 2 Oclock right breast - SECTION HX 04/08/2015 - EGD W/O OR W/BRUSH/WASH 07/09/2017 EGD - L'SCOPE DX W/WO BRUSHINGS/WASHINGS 1996 Laparoscopy - OFFICE LEEP 07/2011 negative - [facility] C SECTION DELIVERY 2014 x2 - TUBAL LIGATION HX 04/08/2015 FAMILY HISTORY Problem Relation Age of Onset - Diabetes Mother - Hypertension Father SOCIAL HISTORY Social History Substance Use Topics - Smoking status: Current Every Day Smoker Packs/day: 0.50 Types: Cigarettes Last attempt to quit: 06/17/2010 - Smokeless tobacco: Never Used Comment: 3 cigs per day (04/30/17) - Alcohol use Yes Comment: Occasionally REVIEW OF SYSTEMS Abdomen: No abdominal pain, nausea, vomiting, diarrhea, or constipation. No bloating, early satiety, indigestion, or increased flatulence. Bladder: No dysuria, gross hematuria, urinary frequency, urinary urgency, or incontinence. Breast: No breast lumps, nipple d/c, overlying skin changes, redness or skin retraction. Allergies and current medication updated:Yes EXAM: BP 122/82 Ht 5' 1.811 (1.57m) Wt 192 lb (87.1kg) LMP 07/16/2017 BMI 35.33 kg/(m2). GENERAL: pleasant, female in no apparent distress HEENT: Normocephalic, atraumatic, mucus membranes moist and no lesions NECK: Supple, full range of motion, no adenopathy and thyroid normal DERMATOLOGY: Normal, without lesions, non-icteric and non-hirsute BREAST: soft, non-tender, symmetric, no dominant mass, normal nipple-areolar complex, no lymphadenopathy and no nipple discharge CHEST: Clear to auscultation Normal inspiratory effort Regular rate and rhythm No murmurs, clicks, rubs or gallops ABDOMEN: soft, non-tender and no masses PELVIC: external genitalia normal, normal Bartholin's glands, urethra, [place]'s glands, no vulvar lesions, no cervical lesions, good vaginal support, physiologic discharge present, normal appearing perineal body and perianal region BIMANUAL: uterus normal size, shape and consistency, no adnexal masses and non-tender RECTOVAGINAL: deferred. NEURO: alert and oriented x3,exam grossly non-focal EXTREMITIES: normal ASSESSMENT/PLAN: 1. Encounter for gynecological examination with abnormal finding - ICD9: V72.31, ICD10: Z01.411 (primary diagnosis) - Completed pelvic and breast exam - Encouraged monthly BSE - Follow up for annual exam in one year. - [facility] SCREENING 2. Class 2 obesity due to excess calories without serious comorbidity with body mass index (BMI) of 35.0 to 35.9 in adult - ICD9: 278.00, V85.35, ICD10: E66.09, Z68.35 1) Health maintenance: Pap/HPV up to date. Mammogram ordered. Nutrition, exercise and routine health maintenance exams reviewed. Calcium/Vitamin D supplementation information provided. Smoking cessation: Smoking cessation encouraged and resources provided. Smokes 3 CPD in the evening. Has no desire to quit at this time. Offered information and patient declines. Encouraged cessation. Lipids/glucose: followed by PCP Vitamin D: followed by PCP 2) Contraception: tubal ligation. Contraceptive options reviewed and information provided. 3) STD screening: Declined STD check. 4) Follow up one year or sooner as needed Caitlyn Painting CNM ALLERGIES ALLERGIES DATE TYPE / CODE NAME / CODE REACTION SEVERITY SOURCE 05/29/2018 Drug Sulfa Diarrhea Unknown [facility] Allergy/4160 (Sulfonamide Hospital 23075(SNOMED Antibiotics)/ Repository CT) [id number](RX NORM) 11/17/2005 Drug SULFA GI UPSET [facility] Class/221057 (SULFONAMIDE [place] 003(SNOMED ANTIBIOTICS) Repository CT) ENCOUNTERS ENCOUNTERS ADMIT/DISCHARGE ACCOUNT ADMITTING ENCOUNTER LOCATION SOURCE NUMBER CLASS 07/04/2018/07/05/19 [id number] Ambulatory [address] Repository 06/07/2018/06/07/20 [id number] Ambulatory [address] Repository 06/06/2018/06/07/20 [id number] Ambulatory [address] Repository 05/29/2018/06/01/20 [id number] Agyepong, Inpatient [address] ing:YX7Nlqt: Repository YZ042Wyr: 1 05/29/2018 [id number] Agyepong, Ambulatory BMSBuilding:Cata Burton [facility] Repository 05/29/2018 [id number] Agyepong, Ambulatory BMSBuilding:[facility] Repository 05/29/2018 [id number] Agyepong, Ambulatory BMSBuilding:Cata Burton [facility] Repository 05/29/2018 [id number] Agyepong, Ambulatory BMSBuilding:Cata Burton [facility] Repository 04/02/2018 [id number] Ambulatory [facility] ing:HW Repository 02/22/2018/02/23/20 [id number] Emergency [address] ing:ED Repository 02/22/2018/02/26/20 [id number] Ambulatory [address] Repository 12/27/2017/12/29/19 [id number] Ambulatory [address] Repository 09/18/2017/09/19/19 [id number] Ambulatory [address] Repository 07/31/2017/07/31/19 [id number] Ambulatory [address] Repository 07/25/2017/07/26/19 [id number] Ambulatory [address] Repository PAYERS PAYERS ENCOUNTER GUARANTOR PAYER SUBSCRIBER SOURCE 05/29/2018September L Primary KACIE L [place] [id number] Insurance:ANTHEMPolic SKINNERDOB: [facility] y Number: [id number] [id number] Repository [address]Nuu: (330) Date:6918-87-89YB [phone] () [id number], [place] [address]WB: 05/29/2018 Secondary NOT GIVENUNK [place] Insurance:SELF PAY [facility] Number: Effective Repository Date:2018-05-29 05/29/2018 KACIE L Primary KACIE L [place] [id number] Insurance:ANTHEMPolic SKINNERDOB: [facility] y Number: [id number], [place] [id number] Repository [address]Mdl: (330) Date:9585-04-39RL [phone] () [id number], [place] [address]DI: 05/29/2018 Secondary NOT GIVENUNK [place] Insurance:SELF PAY [facility] Number: Effective Repository Date:2018-05-29 05/29/2018 KACIE L Primary KACIE L [place] [id number] Insurance:ANTHEMPolic SKINNERDOB: [facility] y Number: [id number], [place] [id number] Repository [address]Ayb: (330) Date:9688-16-21DK [phone] () [id number], [place] [address]KP: 05/29/2018 Secondary NOT GIVENUNK [place] Insurance:SELF PAY [facility] Number: Effective Repository Date:2018-05-29 05/29/2018 KACIE L Primary KACIE L [place] [id number] Insurance:ANTHEMPolic SKINNERDOB: [facility] y Number: [id number], [place] [id number] Repository 149[address]Qbs: (330) Date:5303-36-54YV [phone] () SHERRY AARON [address]JM: 05/29/2018 Secondary NOT GIVENUNK [place] Insurance:SELF PAY [facility] Number: Effective Repository Date:2018-05-29 05/29/2018 KACIE L Primary KACIE L [place] [id number] Insurance:ANTHEMPolic SKINNERDOB: [facility] y Number: [id number], [place] [id number] Repository [address]Ehz: (330) Date:9842-77-13TU [phone] () [id number] LAI [address]LP: 05/29/2018 Secondary NOT GIVENUNK [place] Insurance:SELF PAY [facility] Number: Effective Repository Date:2018-05-29 04/02/2018 KACIE L Primary NOT GIVENUNK [place] [id number] Insurance:SELF PAY [place] Number: Effective Repository [address]Wlo: (330) Date:2018-03-26 [phone] () 02/22/2018 KACIE L Primary KACIE L [place] [id number] Insurance:ANTHEMPolic SKINNERDOB: [facility] y Number: [id number], [place] [id number] Repository [address]Tla: (330) Date:4175-72-84DY [phone] () [id number] LAI [address]ZO: 02/22/2018 Secondary NOT GIVENUNK [place] Insurance:SELF PAY [facility] Number: Effective Repository Date:2018-02-22
== END 2018-06-01 10:37 | disposition home or self-care (01) | DRG 871 ==
LOC: ED 20:06 → MS2 23:02
PROVIDERS: Admitting Provider Hospitalist; Emergency Provider Emergency Medicine; Family Provider Family Medicine; PCP Family Medicine; Visit Provider Hospitalist
DX: A41.9 Sepsis, unspecified organism (principal); J18.8 Other pneumonia, unspecified organism; R65.20 Severe sepsis without septic shock; F17.210 Nicotine dependence, cigarettes, uncomplicated; K21.9 Gastro-esophageal reflux disease without esophagitis; F10.10 Alcohol abuse, uncomplicated
CPT/HCPCS: 36415; 71045; 71275; 80048; 80202; 83605; 84484; 85025; 85610; 85730; 87040; 87070; 87205; 87449; 87633; 93005; 94640; 94667; 94668; 99283; 99406; J7030; J7040; J7050; Q9967; A4216; J0295; J2405

== ENCOUNTER 2019-02-05 13:10 | Emergency (ER) | payer BC, SELFPAY ==
[2018-05-29 23:23] VITALS: BMI 36.7
[2019-02-05 13:16] VITALS: BP 160/107; PULSE 104; RESP 18; TEMP 37.2; O2SAT 98; BMI 37.6
--- NOTE | 2019-02-05 13:37 | RAD_ITS ---
STUDY: X-RAY CHEST REASON FOR EXAM: Female, 43 years old. Chest pain TECHNIQUE: Frontal view of the chest COMPARISON: 05/29/2018 FINDINGS: The lungs are clear. There are no pleural effusions. There is no pneumothorax. The heart is normal in size. The visualized osseous structures are within normal limits. RAD/Chest 1 View (Portable) IMPRESSION: No acute thoracic pathology. Electronically Signed: Cristian Shepherd, at 14:16 EDT Tel , Service support ,
--- NOTE | 2019-02-05 13:37 | EKG12_ITS ---
Test Reason : CP Blood Pressure : / mmHG Vent. Rate : 100 BPM Atrial Rate : 100 BPM P-R Int : 130 ms QRS Dur : 084 ms QT Int : 358 ms P-R-T Axes : 018 024 011 degrees QTc Int : 461 ms Normal sinus rhythm Normal ECG Confirmed by DANIEL LUCERO ([id number]), department editor SHAMEKA HAINES ([id number]) on 02/10/2019 2:06:22 PM Referred By: Confirmed By:DANIEL LUCERO
[2019-02-05 13:55] LABS: Absolute Lymphocyte Count 2.58 X10^3/uL (0.83-4.51); Absolute Neutrophil Count 4.8 X10^3/uL (2.0-7.7); Basophil# 0.05 X10^3/uL; Basophil% 0.6 % (0-1); Eosinophil# 0.27 X10^3/uL; Eosinophils% 3.2 % (0-5); Hematocrit 41.5 % (37-47); Hemoglobin 13.7 g/dL (12.0-15.0); Lymphocyte # 2.58 X10^3/ul (4.0); Lymphocyte % 30.8 % (19-41); Mean Corpuscular Hgb 28.6 pg (27.0-32.0); Mean Corpuscular Volume 86.6 fL (81-99); Mean Platelet Vol. 11.2 fl (6.2-12.0); Monocyte# 0.68 X10^3/uL; Monocyte% 8.1 % (0-10); NRBC Flagged by Analyzer 0 % (0-5); Neutrophil # 4.78 X10^3/uL (2.7-7.7); Neutrophil % 56.9 % (47-70); Platelet Count 259 K/mm3 (150-450); RBC Distribution Width CV 14.3 % (11.6-14.6); RBC Distribution Width SD 45.5 fl (35.1-43.9); Red Blood Count 4.79 M/mm3 (4.2-5.4); White Blood Count 8.4 K/mm3 (4.4-11.0)
[2019-02-05 14:12] LABS: D-Dimer Quantitative (DVT/PE) 0.28 FEU/ug/m (0.27-0.49)
[2019-02-05 14:13] LABS: Anion Gap 6 (5-15); BUN 13 mg/dL (7-18); BUN/Creat Ratio 15.2 RATIO (10-20); Calcium,Total 8.8 mg/dL (8.5-10.1); Chloride 108 mmol/L (98-107); Creatinine, Serum 0.85 mg/dL (0.55-1.02); EST Glomerular Filtration Rate 77 mL/min (>60); Est Glom Filt Rate - Afr Amer 93 mL/min (>60); Glucose 105 mg/dL (74-106); Potassium 3.8 mmol/L (3.5-5.1); Sodium Level 138 mmol/L (136-145); Thyroid Stim Hormone (TSH) 1.14 uIU/mL (0.358-3.74)
[2019-02-05 14:16] VITALS: BP 125/83; PULSE 86; RESP 18
[2019-02-05 14:52] LABS: Internal QC Validated? YES +Cl - CLEAR BKGD; Pregnancy, Serum, hCG Quali. NEGATIVE Negative
--- NOTE | 2019-02-05 15:27 | ED.VISSUMM ---
- ER Visit Summary Date of Service: 02/05/19 Chief Complaint: Chest pain History of Present Illness: The patient is a [address] Cody gaytan. She reports that she has chest pain that began 2 days ago with intermittent pain that she describes as stabbing pains that lasts seconds at a time. States that it is occurring multiple times throughout the day. She reports that she notices it more when she lays down. It is 6 out of 10 at worst and 2 out of 10 currently. Is worsened by nothing including exertion. Also relieved by nothing. No associated nausea, vomiting, diaphoresis, shortness of breath. She denies any palpitations. Physical Examination: Vitals: Stable. Afebrile. General: Well-nourished and well-developed. Head: Normocephalic atraumatic. Neck: Supple, no lymphadenopathy. No JVD. Nontender. Cardiovascular: Regular rate and rhythm. No murmurs. Respiratory: No respiratory distress. Clear to auscultation bilaterally. Abdominal: Soft, nontender, nondistended, normal bowel sounds. No guarding, rebound, or peritoneal signs. Back: Nontender. Extremities: Nontender, no edema. Skin: Normal color, no rash. Neurologic: Alert and oriented ?3. Cranial nerves II through XII are intact. Normal strength and sensation. Psych: Normal affect. Test Results: EKG is sinus tach at 100 with no acute changes. Troponin is negative. D-dimer is normal. test is negative. Chem-7 shows a chloride 108. Chem-7 is normal. TSH is normal. Chest x-ray shows no acute disease. Emergency Department Course and Treatment: Patient is resting comfortably. She has had no ectopy on the monitor. Treatment Plan: Patient's pain is very atypical. I do not think that this is an acute coronary syndrome. She will be discharged with instructions to follow-up with her primary care physician in 3 to 5 days. Return to the emergency department for any worsening symptoms. Disposition: To home in improved and stable condition. Impression: 1. Atypical chest This note was generated with [employer] software. It may contain incorrect words, spelling, and punctuation that were not noted in review of the chart prior to signing ED Disposition - Plan for ED Patient: Disposition: Home or Assisted Living Instructions: CHEST PAIN, Uncertain Cause Referrals: Laron Hadley MD [Primary Care Provider] - 3-5 Days
[2019-02-05 15:35] VITALS: BP 134/86; PULSE 86; RESP 21; O2SAT 97
--- NOTE | 2019-02-05 15:36 | ED.RN ---
IV DC'ED, CATHETER INTACT, SMALL GAUZE DRESSING PLACED. DISCHARGE INSTRUCTIONS GIVEN TO AND REVIEWED WITH PATIENT, PATIENT DENIES QUESTIONS OR CONCERNS AND VOICES UNDERSTANDING OF DISCHARGE INSTRUCTIONS. PT AMBULATES OUT OF ROOM WITHOUT DIFFICULTY.
== END 2019-02-05 15:36 | disposition home or self-care (01) ==
LOC: ED 13:38
PROVIDERS: Emergency Provider Emergency Medicine; Family Provider Family Medicine; PCP Family Medicine
DX: R07.89 Other chest pain (principal); K21.9 Gastro-esophageal reflux disease without esophagitis; Z72.0 Tobacco use; Z79.899 Other long term (current) drug therapy
CPT/HCPCS: 71045; 80048; 84443; 84484; 84703; 85025; 85379; 93005; 99284; A4216

== ENCOUNTER → 2020-01-16 14:02 | Outpatient (CLI) | payer BC, SELFPAY ==
[2020-01-08 10:43] VITALS: BMI 36.7
--- NOTE | 2020-01-16 14:05 | US_ITS ---
STUDY: ULTRASOUND OF THE FEMALE PELVIS - COMPLETE REASON FOR EXAM: Female, 44 years old. PELVIC PAIN LMP: 12/29/2019 TECHNIQUE: Transabdominal real time examined with grayscale image documentation. Transvaginal ultrasound was required for adequate visualization of the uterus and adnexal areas. TECHNICAL QUALITY: Adequate. COMPARISON: None. FINDINGS: The uterus is anteverted and is in a midline position. The uterus measures 7.0 x 3.9 x 3.3 cm. Normal uterine cervix. The endometrium measures 9 mm in thickness, and is hyperechoic. There is one small punctate calcification of the endometrium of the lower uterine segment. There is no demonstrated myometrial mass. I.U.D. - The patient does not have an I.U.D. The right ovary is visualized. The right ovary measures 1.8 x 1.3 x 1.3 cm. There is no right ovarian cyst or ovarian mass. There is no visualized right adnexal mass or complex lesion. There is normal arterial and normal venous vascularity. The left ovary is visualized. The left ovary measures 2.6 x 1.7 x 2.0 cm. There is no left ovarian cyst or ovarian mass. There is no visualized left adnexal mass or complex lesion. There is normal arterial and normal venous vascularity. There is no fluid in the cul-de-sac. The pre void volume of the bladder was 291 ml. Polycystic ovary disease: No. US/Transvaginal Non- IMPRESSION: 1 small nonspecific endometrial calcification within otherwise normal uterus, endometrium and cervix. Normal ovaries bilaterally. No additional adnexal masses or free fluid. Electronically Signed: Josie Conte MD at 16:04 EDT , Service support ,
--- NOTE | 2020-01-16 14:05 | US_ITS ---
STUDY: ULTRASOUND OF THE FEMALE PELVIS - COMPLETE REASON FOR EXAM: Female, 44 years old. PELVIC PAIN LMP: 12/29/2019 TECHNIQUE: Transabdominal real time examined with grayscale image documentation. Transvaginal ultrasound was required for adequate visualization of the uterus and adnexal areas. TECHNICAL QUALITY: Adequate. COMPARISON: None. FINDINGS: The uterus is anteverted and is in a midline position. The uterus measures 7.0 x 3.9 x 3.3 cm. Normal uterine cervix. The endometrium measures 9 mm in thickness, and is hyperechoic. There is one small punctate calcification of the endometrium of the lower uterine segment. There is no demonstrated myometrial mass. I.U.D. - The patient does not have an I.U.D. The right ovary is visualized. The right ovary measures 1.8 x 1.3 x 1.3 cm. There is no right ovarian cyst or ovarian mass. There is no visualized right adnexal mass or complex lesion. There is normal arterial and normal venous vascularity. The left ovary is visualized. The left ovary measures 2.6 x 1.7 x 2.0 cm. There is no left ovarian cyst or ovarian mass. There is no visualized left adnexal mass or complex lesion. There is normal arterial and normal venous vascularity. There is no fluid in the cul-de-sac. The pre void volume of the bladder was 291 ml. Polycystic ovary disease: No. US/Pelvic (Non ) IMPRESSION: 1 small nonspecific endometrial calcification within otherwise normal uterus, endometrium and cervix. Normal ovaries bilaterally. No additional adnexal masses or free fluid. Electronically Signed: Josie Conte MD at 16:04 EDT , Service support ,
--- NOTE | 2020-01-16 14:32 | US_ITS ---
STUDY: SUPERFICIAL ULTRASOUND - RIGHT BUTTOCK REASON FOR EXAM: Female, 44 years old. RT LOWER BUTTOCK MASS TECHNIQUE: A superficial ultrasound was performed with real-time and static waller-scale imaging. COMPARISON: None. FINDINGS: In the area of interest, there is a well-defined 3.8 x 4.4 x 1.4 cm complex cystic mass in the muscular layer nonvascular. US/Ext Non Vasc Limited/Soft Tiss IMPRESSION: 3.8 x 4.4 x 1.4 cm hematoma of the right buttock. Electronically Signed: Josie Conte MD at 15:55 EDT , Service support ,
== END ==
PROVIDERS: PCP Family Medicine; Referring Provider Nurse Practitioner Women's Health; Visit Provider Nurse Practitioner Women's Health
DX: R10.2 Pelvic and perineal pain (principal); M79.89 Other specified soft tissue disorders
CPT/HCPCS: 76830; 76856; 76882; 93976

== ENCOUNTER → 2020-02-05 | Outpatient (CLI) | payer BC, SELFPAY ==
[2020-02-05 10:57] VITALS: BMI 36.7
[2020-02-10 13:27] LABS: HPV APTIMA, High Risk Negative (Negative)
== END | disposition home or self-care (01) ==
LOC: LABSPEC 13:17
PROVIDERS: PCP Family Medicine; Referring Provider Nurse Practitioner Women's Health; Visit Provider Nurse Practitioner Women's Health
DX: Z12.4 Encounter for screening for malignant neoplasm of cervix (principal)
CPT/HCPCS: 87624; 88175; G0145

== ENCOUNTER → 2021-12-23 | Outpatient (CLI) | payer BC, SELFPAY ==
--- NOTE | 2021-12-23 12:26 | BI_ITS ---
MAMMOGRAPHY - BILATERAL SCREENING REASON FOR EXAM: Female, 46 years old. Routine annual screening examination. PERTINENT HISTORY: Non-contributory. TECHNIQUE: Digital bilateral breast lfy (3D mammographic acquisition) in the CC and MLO projections. 2-D mediolateral oblique (MLO) and craniocaudad (CC) views of both breasts were obtained. CAD: Full Field Digital Mammography with Computer Added Detection was performed. COMPARISON: Comparison is made with prior outside examination dated 12/06/2020. FINDINGS: Breast Composition: The breasts are heterogeneously dense, which may obscure small masses. There are no dominant masses or suspicious calcifications. Stable benign-appearing bilateral axillary lymph nodes. No other significant abnormalities are identified. There has been no significant change since the prior study. BI/SCRN MAMM (CAD)W/FLY BILAT IMPRESSION: Stable bilateral screening mammogram. Yearly follow-up mammogram recommended. (A) ASSESSMENT CATEGORY: BIRADS Category 2: Benign. A letter regarding these results will be sent to the patient by the facility within 30 days. Approximately 10% of breast cancers are not detected by mammography. A normal mammogram should not delay biopsy of a clinically suspicious abnormality. [id number] Electronically Signed: Charlie Banerjee MD at 13:23 EDT ,
== END | disposition home or self-care (01) ==
LOC: OPBI 12:25
PROVIDERS: PCP Family Medicine; Referring Provider Nurse Practitioner Women's Health; Visit Provider Nurse Practitioner Women's Health
DX: Z12.31 Encounter for screening mammogram for malignant neoplasm of breast (principal)
CPT/HCPCS: 77063; 77067

== ENCOUNTER → 2023-10-16 | Outpatient (CLI) | payer BC, SELFPAY | END | disposition home or self-care (01) | PROVIDERS: PCP Family Medicine; Referring Provider Otolaryngology Otolaryngology/Facial Plastic Surgery; Visit Provider Otolaryngology Otolaryngology/Facial Plastic Surgery | DX: J32.9 Chronic sinusitis, unspecified (principal) | CPT/HCPCS: 87070; 87077; 87186; 87205 ==

== ENCOUNTER → 2023-11-06 | Outpatient (CLI) | payer BC, SELFPAY | END | disposition home or self-care (01) | LOC: LABSPEC 15:50 | PROVIDERS: PCP Family Medicine; Referring Provider Otolaryngology Otolaryngology/Facial Plastic Surgery; Visit Provider Otolaryngology Otolaryngology/Facial Plastic Surgery | DX: J32.9 Chronic sinusitis, unspecified (principal) | CPT/HCPCS: 87070; 87205 ==

== ENCOUNTER 2024-09-29 09:07 | Emergency (ER) | payer BC, SELFPAY ==
[2024-09-29 09:08] VITALS: BP 159/101; PULSE 107; RESP 18; TEMP 36.6; O2SAT 97; BMI 34.6
--- NOTE | 2024-09-29 09:23 | ED.VIS.GI ---
HPI HPI - GI History of Present Illness Chief Complaint: GI Bleed Informant: patient Narrative Narrative: 49-year-old female states she had an uneventful morning associated bowel movement and then noticed when she wiped there was blood, she then noticed that there was blood in the toilet as well. She said about an hour later she went to the toilet again not having to have a bowel movement but wiped and there was more blood. She is not actively bleeding or going. She has only had this happen just 1 time this morning and presents out of concern saying that she is an alcoholic as well. She states she had a colonoscopy about 2 years ago and was told there was nothing there, no history of diverticulitis. She has had no melena prior to today, has not been excessively constipated or pushing hard to her knowledge. She denies any nausea or vomiting recently or pain with eating. She denies any abdominal pain and no perianal/rectal pain or discomfort. No lightheadedness or near syncope or other systemic symptoms. She takes no anticoagulants. Never been diagnosed with cirrhosis. [facility] Medical History (Updated 09/29/24 @ 12:[address] Albert Chong MD) Alcoholism Abnormal Pap smear of cervix GERD (gastroesophageal reflux disease) Home Medications ?Medication ?Instructions ?Recorded ?Last Taken ?Type omeprazole 10 mg capsule,delayed 20 mg PO DAILY GERD 04/07/15 02/22/18 History release 20 MG hydrocortisone 1 %-pramoxine 1 % 1 applic FL QHS 1 week #10 grams 09/29/24 Unknown Rx rectal foam (Proctofoam HC) Allergy/AdvReac Type Severity Reaction Status Date / Time Sulfa (Sulfonamide AdvReac Diarrhea Verified 09/29/24 09:09 Antibiotics) Family History Mother Diabetes Father Hypertension Surgical History S/P S/P LEEP Status post colposcopy Social History (Updated 02/05/20 @ 11:37 by Denisha Buckley NP, [employer]) Smoking Status: Current every day smoker tobacco type: cigarettes alcohol intake: current details: occasionally substance use type: does not use caffeine: Yes what type of physical activity do you participate in: none seatbelt use: always do you feel safe at home: Yes additional social history: [id number][id number] 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 ROS ROS ED Constitutional Constitutional ED: Denies chills or fever(s) Eyes Eyes: Denies change in vision or diplopia ENT ENT ED: Denies rhinorrhea or sore throat Cardiovascular Cardiovascular: Denies chest pain or palpitations Respiratory/Chest Respiratory/Chest: Denies cough or dyspnea Gastrointestinal Gastrointestinal: Reports hematochezia; Denies abdominal pain, diarrhea, hematemesis, melena, nausea or vomiting Genitourinary Genitourinary ED: Denies dysuria or hematuria Musculoskeletal Musculoskeletal: Denies back pain or neck pain Integumentary Denies abscess or rash Neurologic Neurologic: Denies headache(s), paresthesias or weakness Psychiatric Psychiatric: Denies suicidal thoughts EXAM Physical Exam Const Vital Signs: 09/29/24 09:08 09/29/24 11:08 Temperature 97.8 F Temperature Source Oral Pulse Rate 107 H 98 Respiratory Rate 18 16 Blood Pressure 159/101 H 150/90 H Blood Pressure Mean 120 110 Pulse Ox 97 Oxygen Delivery Method Room Air Positive well nourished and well developed General Appearance ED: well developed and NAD HEENT Reports moist mucous membranes normocephalic and atraumatic Eyes PERRL and EOMs intact bilaterally Neck full ROM and supple Resp normal respiratory effort and clear to auscultation bilaterally Cardio regular rate, regular rhythm and no murmurs GI non-tender and non-distended GI Narrative: Rectal deferred since 1 bout and not actively bleeding or having other symptoms Auscultation: normoactive bowel sounds Palpation: soft Back/Spine no CVA tenderness General Back: other FROM Extremity normal to inspection General Extremety ED: Negative for edema, pulses abnormal or tenderness General Extremity: Negative for edema or pulses abnormal Neuro oriented x3, CN's II-XII intact bilaterally and no sensory deficits noted Sensorium / Orientation: awake and alert Motor Exam: strength 5/5 throughout Skin no rashes or lesions noted and no wounds MDM MDM MDM Narrative Medical decision making narrative: Patient says she has a history of anemia. Her hemoglobin is 10.4, this is lower than her prior but it was 6 years ago, and my suspicion is that she did not lose all of that this morning. She is not tachycardic, and she is not symptomatic systemically with regards to acute blood loss. She has slightly elevated liver enzymes but this is likely due to her alcohol use, her total bilirubin is not elevated and her BUN is not elevated to suggest an upper GI bleed, nor do symptoms suggest this. She is hemodynamically stable. On reevaluation she states he feels like maybe there is a trickle of active bleeding. At this point we did a rectal exam, there is no tenderness, there is no external hemorrhoids seen or palpable, and MARJORIE is negative for any gross blood or active bleeding. Given this I do not think she needs to be admitted to the hospital at this time, or to see GI emergently but I think she should follow-up. We did to speak about cirrhosis and the fact that hemorrhoids are possible due to this. She states she had an ultrasound 1 or 2 years ago that showed fatty liver infiltration but no sign of cirrhosis, certainly that is reassuring. At this time I think I would treat her for internal hemorrhoids and have her follow-up with GI as she will eventually need a colonoscopy given that she has had bleeding, possibly an EGD but at this time her symptoms do not suggest an upper source. She is comfortable with that plan we discussed reasons to return. Lab Data Attestation: I reviewed the patient's lab results. Labs: Laboratory Results - last 24 hr 09/29/24 09:30 WBC 4.8 RBC 4.76 Hgb 10.4 L Hct 34.3 L MCV 72.1 L MCH 21.8 L MCHC 30.3 L RDW Std Deviation 46.1 H RDW Coeff of Starr 17.7 H Plt Count 251 MPV 10.3 Immature Gran % (Auto) 1.100 H Neut % (Auto) 70.0 Lymph % (Auto) 16.4 L [place] % (Auto) 8.8 Eos % (Auto) 2.9 Baso % (Auto) 0.8 Absolute Neuts (auto) 3.3 Absolute Lymphs (auto) 0.78 L Nucleated RBC % 0 PT 12.4 INR 0.9 Sodium 138 Potassium 3.2 L Chloride 102 Carbon Dioxide 20.9 L Anion Gap 15 BUN 9 Creatinine 0.53 L Estim Creat Clear Calc 130.53 Est GFR (MDRD) Non-Af 113 BUN/Creatinine Ratio 16.1 Glucose 96 Calcium 9.0 Total Bilirubin 0.16 AST 84 H ALT 75 H Alkaline Phosphatase 59 Total Protein 7.3 Albumin 4.0 Globulin 3.3 Albumin/Globulin Ratio 1.2 Discharge Plan Triage Chief Complaint: GI Bleed ED Provider: Albert Chong Dx/Rx/DC Orders Clinical Impression: Rectal bleeding Instructions: ED Lower GI Bleeding (Stable) Prescriptions: New Proctofoam HC 1-1 % foam 1 applic FL QHS 7 Days Qty: 10 0RF No Action omeprazole 10 MG capsule 20 mg PO DAILY Primary Care Provider: Laron Hadley Referrals: Friend,Hair, DO [Med Staff - Active Staff] - As soon as possible Activity Restrictions/Additional Instructions: If you continue to have bleeding after using the prescription for 1 week you may use it for longer as needed Print Language: [place] Disposition Disposition: Home, Self Care
[2024-09-29 09:42] LABS: Absolute Lymphocyte Count 0.78 X10^3/uL (0.83-4.51); Absolute Neutrophil Count 3.3 X10^3/uL (2.0-7.7); Basophil# 0.04 X10^3/uL; Basophil% 0.8 % (0-1); Eosinophil# 0.14 X10^3/uL; Eosinophils% 2.9 % (0-5); Hematocrit 34.3 % (37-47); Hemoglobin 10.4 g/dL (12.0-15.0); Lymphocyte # 0.78 X10^3/ul (0.83-4.51); Lymphocyte % 16.4 % (19-41); Mean Corp Hgb Conc 30.3 g/dL (32-36); Mean Corpuscular Hgb 21.8 pg (27.0-32.0); Mean Corpuscular Volume 72.1 fL (81-99); Mean Platelet Vol. 10.3 fl (6.2-12.0); Monocyte# 0.42 X10^3/uL; Monocyte% 8.8 % (0-10); NRBC Flagged by Analyzer 0 % (0-5); Neutrophil # 3.32 X10^3/uL (2.7-7.7); Platelet Count 251 K/mm3 (150-450); RBC Distribution Width CV 17.7 % (11.6-14.6); RBC Distribution Width SD 46.1 fl (35.1-43.9); Red Blood Count 4.76 M/mm3 (4.2-5.4); White Blood Count 4.8 K/mm3 (4.4-11.0)
[2024-09-29 09:49] LABS: International Normalized Ratio 0.9; Prothrombin Time (Protime)PT. 12.4 SECONDS (11.7-14.9)
[2024-09-29 10:19] LABS: ALB/GLOB Ratio 1.2 RATIO (0.9-2.4); AST(SGOT) 84 U/L (<=31); Alanine Aminotransfer ALT/SGPT 75 U/L (<=34); Alkaline Phosphatase 59 U/L (35-104); Anion Gap 15 (5-15); BUN 9 mg/dL (4-19); BUN/Creat Ratio 16.1 RATIO (10-20); Carbon Dioxide 20.9 mmol/L (21.0-32.0); Chloride 102 mmol/L (98-108); Creatinine, Serum 0.53 mg/dL (0.70-1.20); EST Glomerular Filtration Rate 113 (>60); Estimated Creatinine Clearance 130.53 ml/min (50-250); Globulin 3.3 g/dL (2.2-4.2); Glucose 96 mg/dL (70-99); Potassium 3.2 mmol/L (3.3-5.1); Protein, Total 7.3 g/dL (5.9-8.4); Sodium Level 138 mmol/L (133-145); Total Bilirubin 0.16 mg/dL (0.00-1.30)
[2024-09-29 11:08] VITALS: BP 150/90; PULSE 98; RESP 16
[2024-09-29 12:30] VITALS: BP 150/90; PULSE 98; RESP 16; TEMP 36.6; O2SAT 97
== END 2024-09-29 12:34 | disposition home or self-care (01) ==
PROVIDERS: Emergency Provider Emergency Medicine; PCP Family Medicine; Visit Provider Emergency Medicine
DX: K62.5 Hemorrhage of anus and rectum (principal); F10.20 Alcohol dependence, uncomplicated; K76.0 Fatty (change of) liver, not elsewhere classified; K21.9 Gastro-esophageal reflux disease without esophagitis; F17.210 Nicotine dependence, cigarettes, uncomplicated; Z79.899 Other long term (current) drug therapy
CPT/HCPCS: 80053; 85025; 85610; 99284; A4216